=== PATIENT | female | born 1945 | race African-American/Black ===

== ENCOUNTER 2016-04-14 08:22 | Inpatient (IN) ==
[2016-04-14] MEDS ORDERED: MIDAZOLAM 2 MG/2 ML VIAL IV STA (08:51)
--- NOTE | 2016-04-14 08:54 | EKG Report ---
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
[2016-04-14] MEDS ORDERED: PIPERACILLIN/TAZOBACTAM 3,375 MG in SODIUM CHLORIDE 0.9% 100 ML IV STA (09:06)
--- NOTE | 2016-04-14 09:11 | Emergency Department Note ---
Hilary Griffith Brittany, am scribing for, and in the presence of, Tyler Huizar MD 08: 55. Gaye Griffith James D, MD, personally performed the services described in this documentation, ascribed by Rosa Richard in my presence, and it is both accurate and complete 857 . Arrival - Arrival Chief Complaint: Seizure Stated Complaint: seizure ED Nursing Triage Note: Brought in per EMS from home s/p seizure activity this am. Post-ictal at present. +vomiting prior to arrival. Unresponsive at present. Mode of Arrival: Stretcher Limitations: No Limitations Source: Patient, EMS - History of Present Illness HPI Narrative: This will be limited secondary to pt's current mental status and pt being intubated. This is a 71 y/o black female,who presents to the ED by EMS S/P seizure. Pt appears to have aspirated on vomit. She had stool incontinence as well. It is unclear if pt is compliance with her medication. She was last seen here 5 days ago for the same complaint and was out of her medication at this time. No other complaints/pain in the ED at this time. Pt has a PMHx of HTN, seizures, and GOUT. Pt denies a surgical Hx. Pt denies a family medical Hx. 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) Consistency: constant Severity: severe Date of Last Menstrual Period: PM Allergies/Adverse Reactions: Allergies Allergy/AdvReac Type Severity Reaction Status Date / Time No Known Allergies Allergy Verified 04/14/16 08:32 Home Medications: Home Medications Medication Instructions Recorded Confirmed Type Allopurinol 2 tablet PO DAILY 04/11/16 04/11/16 History Diphenoxylate HCl/Atropine 2 tablet PO Q6HR PRN 04/11/16 04/11/16 History [Diphenoxylate/Atropine 2.5-0.025 mg Tab] Famotidine 20 mg PO BID 04/11/16 04/11/16 History Hum Insulin NPH/Reg Insulin Hm 5 units SUBCUT AC SUPPER 04/11/16 04/11/16 History [NovoLIN 70/30] Hum Insulin NPH/Reg Insulin Hm 12 units SUBCUT QAM 04/11/16 04/11/16 History [NovoLIN 70/30] Ondansetron Odt Tab [Zofran Odt] 4 mg PO Q6HR PRN 04/11/16 04/11/16 History Pravastatin [Pravachol] 20 mg PO BEDTIME 04/11/16 04/11/16 History Rivaroxaban [Xarelto] 20 mg PO DAILY 04/11/16 04/11/16 History Sertraline HCl 25 mg PO DAILY 04/11/16 04/11/16 History hydrALAZINE TAB [Apresoline Tab] 25 mg PO DAILY 04/11/16 04/11/16 History levETIRAcetam TAB [Keppra Tab] 1,000 mg PO BID #120 tablet 04/11/16 Rx Review of System - Review of System 12 point system: reviewed and no additional remarkable complaints except as stated - Review of System Neurological: Present: other (Seizure activity) Medical,Surgical,& Family Hx - Medical History Cardio: History of: Hypertension Psychological: History of: Depression Neurology: History of: Seizures Endocrine: History of: Diabetes Mellitus (IDDM) Rheumatology: History of;: Gout - Surgical History Orthopedic Surgeries: Patient denies;: Total Knee Replacement - Social History Smoking Status: Unknown if ever smoked Frequency of Alcohol Use: Unknown Type of Drug Use: Unknown Exam Vital Signs: Vital Signs Temperature 97.6 F 04/14/16 13:14 Pulse Rate 87 04/14/16 13:14 Respiratory Rate 15 04/14/16 15:00 Blood Pressure 170/71 04/14/16 13:14 O2 Sat by Pulse Oximetry 100 04/14/16 08:22 GENERAL: This is a well-nourished well-developed acutely ill-appearing black female. VITAL SIGNS: Reviewed HEENT: Head is atraumatic and normocephalic. Pupils are equal round react to light. Gaze preference to the right. Oropharynx is benign with moist mucous membranes. NECK: Neck is soft and supple without tenderness. There are no masses. There is no lymphadenopathy. LUNGS: Lungs are clear to auscultation. Chest rises symmetrically. There is no chest wall tenderness. CV: Heart is regular rate and rhythm without murmurs rubs or gallops. ABDOMEN: Abdomen is soft, nontender to palpation. There are no abdominal abnormal masses palpated. There is no organomegaly. Bowel sounds are present and active. SKIN: Skin is warm and dry. No rash. EXTREMITIES: Patient has full range of motion without tenderness. There is no pedal edema. NEUROLOGIC: GCS 4. Patient is nonverbal. No purposeful movements. Course - Consultations Consultation #1: Discussed with hospitalist. Patient will be admitted to their service. Time: 09:31 Procedures - EJ/Peripheral Line Neck L Consent Obtained: verbal consent Time Out Performed: Yes Skin Cleansed in Sterile Fashion: Yes Size: 18 IV Secured and Dressing Applied: Yes Patient Tolerated Procedure: well - Intubation Time out performed: Yes sedative: Etomidate Mg Given: 20 paralytic: Vecuronium Mg Given: 10 Laryngoscope: fiber optic video scope ET Tube Size: 8 ET Tube Uncuffed: No Tube Secured Depth (cm): 22 Tube Secured Location: lips Tube Placement Confirmation: visualized tube passing through cords, equal breath sounds bilaterally, no breath sounds over epigastrium, confirmation detector color change Patient Tolerated Procedure: well Intubation Complications: none Results - Labs CBC & BMP: 04/14/16 09:48 04/14/16 09:48 Lab Results: I have reviewed the patients labs Labs: Laboratory Tests 04/14/16 04/14/16 04/14/16 09:39 09:48 09:48 WBC 33.3 H Hgb 15.0 Hct 46.0 Plt Count 262 ABG pH 7.568 H ABG pCO2 28.0 L ABG pO2 296.8 H ABG HCO3 25.0 ABG Total CO2 25.8 ABG O2 Saturation 99.6 ABG Base Excess 4.1 H Sodium Potassium Chloride Carbon Dioxide Anion Gap BUN Creatinine GFR Calculation BUN/Creatinine Ratio Glucose POC Glucose Calculated Osmolality Calcium Magnesium Total Bilirubin AST ALT Alkaline Phosphatase Total Protein Urine Color Yellow Ur Specific [place] 1.018 Urine Protein >=500 Urine Glucose (UA) Negative Urine Urobilinogen < 2.0 H Urine RBC 37 Urine WBC 40 Urine Opiates Screen Ur Barbiturates Screen Phenytoin Ur Phencyclidine Scrn U Amphetamine/Methamph U Benzodiazepines Scrn U Cocaine Metab Screen U Cannabinoids Screen 04/14/16 04/14/16 04/14/16 09:48 09:48 09:48 WBC Hgb Hct Plt Count ABG pH ABG pCO2 ABG pO2 ABG HCO3 ABG Total CO2 ABG O2 Saturation ABG Base Excess Sodium 143 Potassium 3.5 Chloride 103 Carbon Dioxide 26 Anion Gap 17.5 H BUN 11 Creatinine 0.80 GFR Calculation 106 BUN/Creatinine Ratio 13.00 Glucose 170 H POC Glucose Calculated Osmolality 287.0 Calcium 9.0 Magnesium 2.0 Total Bilirubin 0.70 AST 23 ALT 12 L Alkaline Phosphatase 108 Total Protein 7.7 Urine Color Ur Specific [place] Urine Protein Urine Glucose (UA) Urine Urobilinogen Urine RBC Urine WBC Urine Opiates Screen Negative Ur Barbiturates Screen Negative Phenytoin 6.6 L Ur Phencyclidine Scrn Negative U Amphetamine/Methamph Negative U Benzodiazepines Scrn Negative U Cocaine Metab Screen Negative U Cannabinoids Screen Negative 04/14/16 10:10 WBC Hgb Hct Plt Count ABG pH ABG pCO2 ABG pO2 ABG HCO3 ABG Total CO2 ABG O2 Saturation ABG Base Excess Sodium Potassium Chloride Carbon Dioxide Anion Gap BUN Creatinine GFR Calculation BUN/Creatinine Ratio Glucose POC Glucose 167 H Calculated Osmolality Calcium Magnesium Total Bilirubin AST ALT Alkaline Phosphatase Total Protein Urine Color Ur Specific [place] Urine Protein Urine Glucose (UA) Urine Urobilinogen Urine RBC Urine WBC Urine Opiates Screen Ur Barbiturates Screen Phenytoin Ur Phencyclidine Scrn U Amphetamine/Methamph U Benzodiazepines Scrn U Cocaine Metab Screen U Cannabinoids Screen - EKG EKG results: interpreted by ERMD - Impressions EKG: Normal sinus rhythm with rate of 91, left atrial enlargement, old inferior MD, normal axis. - Diagnostic Findings Procedure: Chest x-ray: image reviewed by me (Tube present in the trachea above the jessy. No infiltrates.), CT: image reviewed by me (CT head: No acute intracranial lesion or hemorrhage.) Critical Care Time Critical Care Time: Yes Total Critical Care Time: 60 Attestation: Pt was intubated, initial vent management orders begun, versed bolus and infusion, Keppra bolus also given. Disposition Clinical Impression: Seizure disorder, History of noncompliance with medical treatment, Chronic anticoagulation, Aspiration into airway Case discussed with: patient's family Disposition: Still a Patient Condition: Critical Time of Disposition: 09:10
--- NOTE | 2016-04-14 09:14 | XRay Report ---
Exam: XR chest 1V portable Date: 04/14/2016 8:51 AM Indication: Post intubation Comparison: 04/09/2016 Technical: AP portable Findings: Endotracheal tube is present at the level of the clavicle nasogastric tube traverses esophagus in the stomach. Mild prominence the cardiac silhouette. Minimal platelike atelectatic change in the right mid chest and patchy infiltrate present in the left perihilar region and left upper lobe. Tiny low volume left effusion. Lateral marginal osteophytes are present. Arthritic change of the shoulders bilaterally. Impression: 1. Interval placement of endotracheal tube and nasogastric tube 2. Left perihilar upper lobe infiltrate with right midlung zone atelectatic change 3. Tiny low volume left effusion PROCEDURE INTERPRETED AT [facility] ([facility] DEPARTMENT OF RADIOLOGY Final Report Signed by: Dr. Rip Venegas
[2016-04-14] MEDS ORDERED: MIDAZOLAM 2 MG/2 ML VIAL ONE (09:16)
[2016-04-14] MEDS ORDERED: DOCUSATE SODIUM 100 MG CAPSULE PO PRN (09:36)
[2016-04-14] MEDS ORDERED: LACTULOSE 20 GM/30 ML UDCUP PO PRN (09:36)
[2016-04-14] MEDS ORDERED: levETIRAcetam 500 MG/5 ML VIAL IV ONE (09:36)
[2016-04-14] MEDS ORDERED: ONDANSETRON 4 MG/2 ML VIAL IV PRN (09:36)
--- NOTE | 2016-04-14 09:36 | CT Report ---
CT head/brain wo con Indication: Seizure Comparison: CT brain dated April 09, 2016 Technique: Multiple axial tomographic images of the brain were obtained without the use of intravenous contrast. Findings: Midline structures are nondisplaced. There is no acute intracranial hemorrhage or evidence of hydrocephalus. Global volume loss present. Periventricular and subcortical hypoattenuation noted which is nonspecific but consistent with chronic microvascular ischemic change. Subtle encephalomalacia noted within the cerebellum consistent with old infarct. Air-fluid level noted within the left maxillary sinus. IMPRESSION: Air-fluid level within the left maxillary sinus may reflect acute sinusitis. No acute intracranial abnormality demonstrated otherwise. 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 PROCEDURE INTERPRETED AT [facility] DEPARTMENT OF RADIOLOGY Final Report Signed by: Dr Huseyin Durán
[2016-04-14 09:47] LABS: ABG Base Excess 4.1 MMOL/L (-2.5-2.5); ABG Oxygen Saturation 99.6 % (95-100); ABG PH 7.568 (7.35-7.45); ABG PO2 296.8 MM HG (80-95); ABG TCO2 25.8 MMOL/L (23-27)
[2016-04-14] MEDS ORDERED: VECURONIUM 10 MG VIAL IV ONE ×2 (09:54→11:36)
--- NOTE | 2016-04-14 10:02 | Hospitalist History & Physical ---
<Monisha Barfield - Last Filed: 04/14/16 10:02> Assessment and Plan - Time spent with patient Time spent with patient: Greater than 30 minutes (due to assessment, plan and documentation) (1) Pneumonia Status: Acute Assessment and plan: started on cleocin for treatment of likely aspiration pneumonia Current Visit: Yes (2) On mechanically assisted ventilation Status: Acute Assessment and plan: Dr. Cartagena consulted for vent mgmt Current Visit: Yes (3) Chronic anticoagulation Status: Acute Assessment and plan: xarelto for a fib Current Visit: Yes (4) Seizure disorder Status: Acute Assessment and plan: Dr. Cummings has been consulted for seizure disorder. Current Visit: Yes History of Present Illness Chief complaint: seizure History of present illness: Ms. Pritchard is a 71 year old female who was recently discharged after a hospitalization for seizures. She was sent home on keppra 500 mg PO BID and is back now with seizure this morning, requiring intubation. Her is at bedside and gives history. He states that she had been feeling well and this morning they were at home when she began to seize and foam at the mouth. EMS was called and she was intubated in the ER. Her denies any known surgical history. PMHx significant for Seizure, a fib, HTN, IDDM and Depression. She is on Xarelto for atrial fibrillation. She is sedated and intubated in the ER. Her eyes are nonreactive at this time. ET tube is in proper position. Lungs clear at this time to auscultation, but CXR does show ALISHA infiltrate. Will go ahead and start on abx for empiric treatment of possible pneumonia. I have started her on Cleocin to cover for possible aspiration. She will be admitted to ICU and Dr. Cummings with neurology consulted for seizures and Dr. Cartagena for vent management. Further plan and addendum to follow by Dr. Aranda. Home Medications Medication Instructions Recorded Confirmed Type Allopurinol 2 tablet PO DAILY 04/11/16 04/11/16 History Diphenoxylate HCl/Atropine 2 tablet PO Q6HR PRN 04/11/16 04/11/16 History [Diphenoxylate/Atropine 2.5-0.025 mg Tab] Famotidine 20 mg PO BID 04/11/16 04/11/16 History Hum Insulin NPH/Reg Insulin Hm 5 units SUBCUT AC SUPPER 04/11/16 04/11/16 History [NovoLIN 70/30] Hum Insulin NPH/Reg Insulin Hm 12 units SUBCUT QAM 04/11/16 04/11/16 History [NovoLIN 70/30] Ondansetron Odt Tab [Zofran Odt] 4 mg PO Q6HR PRN 04/11/16 04/11/16 History Pravastatin [Pravachol] 20 mg PO BEDTIME 04/11/16 04/11/16 History Rivaroxaban [Xarelto] 20 mg PO DAILY 04/11/16 04/11/16 History Sertraline HCl 25 mg PO DAILY 04/11/16 04/11/16 History hydrALAZINE TAB [Apresoline Tab] 25 mg PO DAILY 04/11/16 04/11/16 History levETIRAcetam TAB [Keppra Tab] 1,000 mg PO BID #120 tablet 04/11/16 Rx Allergies Allergy/AdvReac Type Severity Reaction Status Date / Time No Known Allergies Allergy Verified 04/14/16 08:32 Medical,Surgical,& Family Hx - Medical History Cardio: History of: Hypertension Psychological: History of: Depression Neurology: History of: Seizures Endocrine: History of: Diabetes Mellitus (IDDM) Rheumatology: History of;: Gout - Surgical History Orthopedic Surgeries: Patient denies;: Total Knee Replacement - Family History Family History: Denies;: Additional Family History ( is not sure of family history) - Social History Smoking Status: Unknown if ever smoked Frequency of Alcohol Use: Unknown Type of Drug Use: Unknown ROS unobtainable: due to endotracheal tube Exam - Constitutional Vitals: Period Temp Pulse Resp BP Sys/Stahl Pulse Ox Last 24 Hr 97.6 F 87 14-20 170/71 100 General appearance: over weight, other (intubated ) - Head Head exam: Present: normal inspection, normocephalic - Eye Eye exam: Present: EOMI. Absent: scleral icterus Pupils: Present: TOMAS, normal accommodation - ENT ENT exam: Present: normal exam, normal oropharynx - Neck Neck exam: Present: normal inspection. Absent: lymphadenopathy - Respiratory Respiratory exam: Present: clear to auscultation bilaterally, other (intubated) . Absent: accessory muscle use - Cardiovascular Cardiovascular exam: Present: regular rate and rhythm - GI/Abdominal GI/Abdominal exam: Present: normal bowel sounds, soft. Absent: tenderness - Extremities Exam Extremities exam: Present: normal inspection. Absent: edema - Back Exam Back exam: Present: normal inspection. Absent: muscle spasm - Neurological Exam Neurological exam: Present: other (sedated on vent) - Psychiatric Psychiatric exam: Present: other (sedated on vent) - Skin Skin exam: Present: normal color, warm, dry, intact Results - Diagnostic Findings Procedure: Chest x-ray: report reviewed by me (possible ALISHA infiltrate) <Kaitlin Aranda - Last Filed: 04/14/16 16:22> Assessment and Plan - Time spent with patient Time spent with patient: Greater than 30 minutes (1) Acute respiratory failure Status: Acute Assessment and plan: Patient intubated for airway safety due to intractable seizure activity. Patient with vomiting and possible aspiration pneumonia. Pulmonary on consult for vent management. Started on clindamycin for anabiotic coverage. Current Visit: Yes Qualifiers: Respiratory failure complication: unspecified whether with hypoxia or hypercapnia Qualified Code(s): J96.00 - Acute respiratory failure, unspecified whether with hypoxia or hypercapnia (2) Aspiration pneumonitis Status: Acute Assessment and plan: Continue clindamycin Current Visit: Yes (3) Seizure Status: Chronic Assessment and plan: Versed for sedation. EEG pending. Consult neurology. Keppra 500 mg IV every 12 hours. Current Visit: No (4) Medical non-compliance Status: Acute Current Visit: No (5) Diabetes mellitus Status: Chronic Assessment and plan: Sliding scale insulin with Accu-Cheks. Start Glucerna tube feeds per dietary. Current Visit: No Qualifiers: Diabetes mellitus type: type 1 (6) Aspiration into airway Status: Acute Current Visit: Yes Qualifiers: Encounter type: initial encounter Qualified Code(s): T17.908A - Unspecified foreign body in respiratory tract, part unspecified causing other injury, initial encounter History of Present Illness History of present illness: Ms. Pritchard is a 71 year old female was admitted from the emergency department with seizures and a possible aspiration pneumonitis. She was intubated in the ER. Patient seen and examined by me in the ICU. She is currently intubated. Sedation has been stopped for neurological evaluation by neurology. EEG is pending. She is minimally responsive. She appears comfortable on the ventilator. A repeat ABG is pending. Medical,Surgical,& Family Hx - Family History Additional Family History: Unobtainable due to patient's current state. Patient is intubated and sedated. - Social History Marital Status: Lives With:: Spouse Functional capacity: independent ambulation ROS unobtainable: due to endotracheal tube, due to mental status - Neurological Neurological: Present: as per HPI Exam - Constitutional Vitals: Period Temp Pulse Resp BP Sys/Stahl Pulse Ox Last 24 Hr 97.6 F 87 14-20 170/71 - Neurological Exam Neurological exam: Present: other Results - Labs CBC & BMP: 04/14/16 09:48 04/14/16 09:48 Lab Results: I have reviewed the past 24 hour labs
[2016-04-14 10:09] LABS: Basophils # 0.1 10*3/uL (0.0-0.2); Basophils % 0.2 % (0.0-0.8); Immature Granulocytes % 0.6 %; Lymphocytes # 1.7 10*3/uL (1.4-4.0); Mean Corpuscular HGB Conc 32.6 GM/DL (32-36); Mean Corpuscular Hemoglobin 28 PG (27-34); Monocytes # 2.2 10*3/uL (0.11-0.8); Monocytes % 6.5 % (1.7-12.7); Neutrophils # 29.2 10*3/uL (1.4-7.4); Neutrophils % 87.7 % (38.7-73.9); Platelet Count 262 T/CUMM (130-400); Red Blood Count 5.41 MC/CUMM (3.8-5.5); Red Cell Distribution Width 16.6 % (9.3-17.3); White Blood Count 33.3 T/CUMM (4-12)
[2016-04-14] MEDS: MIDAZOLAM 100 MG in SODIUM CHLORIDE 0.9% 80 ML IV SCH (10:12)
[2016-04-14] MEDS ORDERED: VECURONIUM 10 MG VIAL IV STA ×2 (10:13)
[2016-04-14] MEDS ORDERED: ETOMIDATE 20 MG/10 ML VIAL IV STA (10:13)
[2016-04-14 10:25] LABS: Apearance,Urine Slightly Hazy (Clear); Bilirubin,Urine Negative (Negative); Blood, Urine Moderate mg/dL (Negative); Glucose,Urine (UA) Negative (Negative); Hyaline Casts,Urine 1 /LPF (0-3); Ketones,Urine Negative (Negative); Mucus,Urine Few /LPF (Occasional); Nitrite,Urine Negative (Negative); Protein,Urine >=500 MG/DL; RBC,Urine 37 /HPF (0-4); Squamous Epithelial Cell,Urine Occasional /HPF (0-10); Urine Color Yellow (Yellow); Urine Specific Gravity 1.018 (1.001-1.035); Urine Urobilinogen < 2.0 EU/DL (0.2-1.0); WBC,Urine 40 /HPF (0-6)
[2016-04-14 10:32] LABS: Hypochromasia 1+; Lymphocytes 8 % (20-55); Platelet Estimate Normal; Segmented Neutrophils 88 % (50-85); Total Cells Counted 100
[2016-04-14 10:39] LABS: Barbiturates Screen,Urine Negative (Negative); Benzodiazepines Screen,Urine Negative (Negative); Cannabinoid Screen,Urine Negative (Negative); Opiate Screen,Urine Negative (Negative); Phencyclidine Screen,Urine Negative (Negative)
[2016-04-14 10:40] LABS: Albumin 3.3 G/DL (3.4-5.0); Bilirubin,Total 0.7 MG/DL (0.2-1.0); Potassium 3.5 MMOL/L (3.5-5.1); Total Protein 7.7 G/DL (6.4-8.3)
[2016-04-14] MEDS ORDERED: ETOMIDATE 20 MG/10 ML VIAL IV ONE (11:36)
[2016-04-14] MEDS ORDERED: PIPERACILLIN/TAZOBACTAM 3,375 MG VIAL IV ONE (11:47)
--- NOTE | 2016-04-14 15:22 | Neurology Consult Note ---
History of Present Illness History of present illness: Patient is unable to provide any history. History basically obtained from the chart. Ms. Pritchard is a 71 year old female who was recently discharged after a hospitalization for seizures. She was sent home on keppra 500 mg PO BID and is back now with seizure this morning, requiring intubation. reported that she had been feeling well and this morning they were at home when she began to seize and foam at the mouth. EMS was called and she was intubated in the ER. Her denies any known surgical history. PMHx significant for Seizure, a fib, HTN, IDDM and Depression. She is on Xarelto for atrial fibrillation. She is sedated and intubated in the ER. It was thought that she probably had aspirated and she is on antibiotics now. CT head showed sinusitis Home Medications Medication Instructions Recorded Confirmed Type Allopurinol 2 tablet PO DAILY 04/11/16 04/11/16 History Diphenoxylate HCl/Atropine 2 tablet PO Q6HR PRN 04/11/16 04/11/16 History [Diphenoxylate/Atropine 2.5-0.025 mg Tab] Famotidine 20 mg PO BID 04/11/16 04/11/16 History Hum Insulin NPH/Reg Insulin Hm 5 units SUBCUT AC SUPPER 04/11/16 04/11/16 History [NovoLIN 70/30] Hum Insulin NPH/Reg Insulin Hm 12 units SUBCUT QAM 04/11/16 04/11/16 History [NovoLIN 70/30] Ondansetron Odt Tab [Zofran Odt] 4 mg PO Q6HR PRN 04/11/16 04/11/16 History Pravastatin [Pravachol] 20 mg PO BEDTIME 04/11/16 04/11/16 History Rivaroxaban [Xarelto] 20 mg PO DAILY 04/11/16 04/11/16 History Sertraline HCl 25 mg PO DAILY 04/11/16 04/11/16 History hydrALAZINE TAB [Apresoline Tab] 25 mg PO DAILY 04/11/16 04/11/16 History levETIRAcetam TAB [Keppra Tab] 1,000 mg PO BID #120 tablet 04/11/16 Rx Allergies Allergy/AdvReac Type Severity Reaction Status Date / Time No Known Allergies Allergy Verified 02/28/17 08:32 ROS unobtainable: due to endotracheal tube, due to mental status Medical,Surgical,& Family Hx - Medical History Cardio: History of: Hypertension Psychological: History of: Depression Neurology: History of: Seizures Endocrine: History of: Diabetes Mellitus (IDDM) Rheumatology: History of;: Gout - Surgical History Orthopedic Surgeries: Patient denies;: Total Knee Replacement - Family History Family History: Denies;: Additional Family History ( is not sure of family history) - Social History Smoking Status: Unknown if ever smoked Frequency of Alcohol Use: Unknown Type of Drug Use: Unknown Exam - Constitutional Vitals: Period Temp Pulse Resp BP Sys/Stahl Pulse Ox Last 24 Hr 97.6 F 87 14-20 170/71 Exam: GENERAL: Patient is in no acute distress. NECK: Neck is supple. There is no JVD. No carotid bruits present. No thyroid masses. CVS: First and second heart sounds are normal. There is no S3 present. Regular rate and rhythm. RESPIRATORY: Lungs are clear to auscultation without any rales or rhonchi. On vent ABDOMEN: Soft and non-tender. Bowel sounds are present. There is no hepatosplenomegaly. EXT: There is no palpable edema. Peripheral pulses are present. Skin: No rashes Central Nervous system: General: Unresponsive Speech: Unresponsive Comprehension: Cannot be assessed Facial expressions: Normal Cranial Nerves: Pupils are sluggish but reactive to light. Doll's head I moves are positive. No facial asymmetry is seen. Motor: Bulk and Tone is normal. Strength cannot be assessed Sensory: Cannot be assessed Reflexes: 1+ and symmetrical Cerebellar function: Cannot be assessed Toes: Equivocal Gait: Cannot be assessed Results - Labs CBC & BMP: 04/14/16 09:48 04/14/16 09:48 Assessment and Plan (1) Hypoxic encephalopathy Status: Acute Assessment and plan: Continue current supportive management Current Visit: Yes (2) Seizure disorder Status: Acute Assessment and plan: We will put her on Keppra 500 mg IV every 12\ EEG Current Visit: Yes
[2016-04-14] MEDS: CLINDAMYCIN INJ 900 MG in PREMIX 1 EACH IV SCH ×2 (15:59→18:30)
[2016-04-14 16:09] LABS: ABG HCO3 27.4 MMOL/L (20-26); ABG Oxygen Saturation 98.9 % (95-100); ABG PCO2 33.7 MM HG (35-48); ABG PH 7.528 (7.35-7.45); ABG PO2 127.1 MM HG (80-95); ABG TCO2 28.4 MMOL/L (23-27)
--- NOTE | 2016-04-14 17:22 | Pulmonology Consult Note ---
Assessment and Plan (1) Seizure Status: Chronic Assessment and plan: Patient had a recurrent seizure and was intubated. Now all medications for that being followed by neurology. Unclear whether patient has any hypoxic brain injury. Brain CT was okay except for sinusitis. Current Visit: No (2) Chronic anticoagulation Status: Acute Assessment and plan: She is on Xarelto for atrial fibrillation. Current Visit: Yes (3) Aspiration into airway Status: Acute Assessment and plan: Likely will develop aspiration pneumonia. I have added cefepime both for that and for sinusitis. Already on Cleocin Current Visit: Yes Qualifiers: Encounter type: initial encounter Qualified Code(s): T17.908A - Unspecified foreign body in respiratory tract, part unspecified causing other injury, initial encounter (4) Acute respiratory failure Status: Acute Assessment and plan: ABGs look good on current settings. We will not try to wean her until neurologic status is clarified. Current Visit: Yes Qualifiers: Respiratory failure complication: unspecified whether with hypoxia or hypercapnia Qualified Code(s): J96.00 - Acute respiratory failure, unspecified whether with hypoxia or hypercapnia History of Present Illness Chief complaint: Grand mal seizure, aspiration History of present illness: Ms. Pritchard is a 71 year old female with a history of seizure disease. She had been here a week or so back having seizures and was sent home taking Keppra. She developed a seizure with foaming at the mouth and grand mal activity and was brought in the emergency room. She was intubated there. She is presently on a Versed infusion and is not reactive. She does have reactive pupils. She had a CT of the brain that showed sinusitis. Home Medications Medication Instructions Recorded Confirmed Type Allopurinol 2 tablet PO DAILY 04/11/16 04/11/16 History Diphenoxylate HCl/Atropine 2 tablet PO Q6HR PRN 04/11/16 04/11/16 History [Diphenoxylate/Atropine 2.5-0.025 mg Tab] Famotidine 20 mg PO BID 04/11/16 04/11/16 History Hum Insulin NPH/Reg Insulin Hm 5 units SUBCUT AC SUPPER 04/11/16 04/11/16 History [NovoLIN 70/30] Hum Insulin NPH/Reg Insulin Hm 12 units SUBCUT QAM 04/11/16 04/11/16 History [NovoLIN 70/30] Ondansetron Odt Tab [Zofran Odt] 4 mg PO Q6HR PRN 04/11/16 04/11/16 History Pravastatin [Pravachol] 20 mg PO BEDTIME 04/11/16 04/11/16 History Rivaroxaban [Xarelto] 20 mg PO DAILY 04/11/16 04/11/16 History Sertraline HCl 25 mg PO DAILY 04/11/16 04/11/16 History hydrALAZINE TAB [Apresoline Tab] 25 mg PO DAILY 04/11/16 04/11/16 History levETIRAcetam TAB [Keppra Tab] 1,000 mg PO BID #120 tablet 04/11/16 Rx Allergies Allergy/AdvReac Type Severity Reaction Status Date / Time No Known Allergies Allergy Verified 04/14/16 08:32 ROS unobtainable: due to endotracheal tube Exam (Pulmonay) H&P - Constitutional Vitals: Period Temp Pulse Resp BP Sys/Stahl Pulse Ox Last 24 Hr 97.6 F-99.5 F 87-124 14-28 140-174/58-102 98-100 Exam: Patient not responsive. Pupils react to light. Vital signs normal, except pulse 120. Orotracheal tube is in place. Neck is supple. Chest shows a few rhonchi on the bases. Heart rapid rate normal rhythm no murmurs. Abdomen soft no masses bowel sounds present. Extremities no clubbing cyanosis or edema. Medical,Surgical,& Family Hx - Medical History Cardio: History of: Hypertension Psychological: History of: Depression Neurology: History of: Seizures Endocrine: History of: Diabetes Mellitus (IDDM) Rheumatology: History of;: Gout - Surgical History Orthopedic Surgeries: Patient denies;: Total Knee Replacement - Family History Family History: Denies;: Additional Family History ( is not sure of family history) - Social History Smoking Status: Unknown if ever smoked Frequency of Alcohol Use: Unknown Type of Drug Use: Unknown Results - Labs CBC & BMP: 04/14/16 09:48 04/14/16 09:48 Lab Results: I have reviewed the past 24 hour labs - Diagnostic Findings Procedure: Chest x-ray: image reviewed by me (Patchy bibasilar infiltrates. ET tube in good position.)
[2016-04-14] MEDS ORDERED: LABETALOL 20 MG/4 ML SYRINGE IV ONE (19:41)
[2016-04-14] MEDS: FAMOTIDINE 20 MG TABLET PO SCH (20:40)
[2016-04-14] MEDS: CEFEPIME 1,000 MG in SODIUM CHLORIDE 0.9% 100 ML IV SCH (20:40)
[2016-04-14] MEDS: METOPROLOL TARTRATE 25 MG TABLET NG SCH (20:40)
[2016-04-14] MEDS ORDERED: DEXTROSE 50% 25 GM/50 ML VIAL IV PRN (23:05)
[2016-04-14] MEDS ORDERED: GLUCAGON 1 MG VIAL IM PRN (23:05)
[2016-04-14] MEDS: INSULIN REGULAR 100 UNIT/ML SUBCUT SCH (23:31)
[2016-04-15] MEDS: CLINDAMYCIN INJ 900 MG in PREMIX 1 EACH IV SCH ×3 (03:01→19:12)
[2016-04-15 05:00] LABS: Basophils % 0.1 % (0.0-0.8); Eosinophils % 0.1 % (0.00-10.9); Hematocrit 43.5 VOL% (35.7-47.0); Hemoglobin 13.7 GM/DL (12.0-16.0); Immature Granulocytes % 0.6 %; Immature Granulocytes Absolute 0.12 #; Lymphocytes # 3.4 10*3/uL (1.4-4.0); Lymphocytes % 16.1 % (21.3-54.2); Mean Corpuscular HGB Conc 31.5 GM/DL (32-36); Mean Corpuscular Hemoglobin 27 PG (27-34); Mean Corpuscular Volume 86.7 FL (87-102); Mean Platelet Volume 11.4 FL (9.6-12.0); Monocytes # 1.5 10*3/uL (0.11-0.8); Neutrophils # 16.2 10*3/uL (1.4-7.4); Neutrophils % 76.1 % (38.7-73.9); Platelet Count 250 T/CUMM (130-400); Red Blood Count 5.02 MC/CUMM (3.8-5.5); Red Cell Distribution Width 16.6 % (9.3-17.3); White Blood Count 21.3 T/CUMM (4-12)
[2016-04-15 05:30] LABS: Platelet Estimate Normal
[2016-04-15] MEDS: INSULIN REGULAR 100 UNIT/ML SUBCUT SCH ×3 (05:42→19:19)
[2016-04-15] MEDS: CEFEPIME 1,000 MG in SODIUM CHLORIDE 0.9% 100 ML IV SCH ×2 (05:42→19:09)
[2016-04-15 06:11] LABS: Albumin 2.6 G/DL (3.4-5.0); Bilirubin,Total 0.5 MG/DL (0.2-1.0); Calcium 8.5 MG/DL (8.5-10.1); Osmolality,Calculated 301.7 MOS/KG (273-304); Potassium 3.6 MMOL/L (3.5-5.1); Total Protein 6.6 G/DL (6.4-8.3)
--- NOTE | 2016-04-15 06:39 | XRay Report ---
Exam: XR chest 1V portable Date: 04/15/2016 4:00 AM Indication: Shortness of breath Comparison: 04/14/2016 Technical: AP portable Findings: External cardiac leads are present. Endotracheal tube and nasogastric tube are present unchanged. Mild cardiomegaly. No obvious pneumothorax. Minimal interstitial thickening in the left perihilar region and tiny left base pleural effusion suspected Impression: 1. Stable appearance of life support tubing 2. Patchy interstitial infiltrate left chest and left base pleural effusion PROCEDURE INTERPRETED AT [facility] DEPARTMENT OF RADIOLOGY Final Report Signed by: Dr. Rip Venegas
--- NOTE | 2016-04-15 07:25 | Pulmonology Progress Note ---
Pulmonary - PN: Subj Interval history: This 71-year-old lady had seizures and aspiration pneumonia and is on the ventilator. She has a left lower lobe pneumonia. She is on broad-spectrum antibiotics. Neurology is seeing her. Her mental status/seizures will decide when we can get her extubated. Exam (Progress Note) - Constitutional Vitals: Period Temp Pulse Resp BP Sys/Stahl Pulse Ox Last 24 Hr 97.6 F-99.5 F 87-124 8-28 120-174/58-102 97-100 Exam: Patient is sedated. Vital signs normal. Pupils react to light. Orotracheal tube in place. Neck supple no bruits. Chest shows some rhonchi on the left lower lobe. Heart normal rate rhythm no murmurs. Abdomen soft no masses. Bowel sounds present. Extremities no clubbing cyanosis or edema. Results - Labs CBC & BMP: 04/15/16 04:25 04/15/16 04:25 Lab Results: I have reviewed the past 24 hour labs - Diagnostic Findings Procedure: Chest x-ray: image reviewed by me (Persistent left lower lobe infiltrate. ET tube in good position.) Assessment and Plan (1) Seizure Status: Chronic Assessment and plan: Patient had a recurrent seizure and was intubated. Now all medications for that being followed by neurology. Unclear whether patient has any hypoxic brain injury. Brain CT was okay except for sinusitis. 04/15/2016 continuing seizure medications. Hold sedation and check mental status when neurology is ready. Current Visit: No (2) Chronic anticoagulation Status: Acute Assessment and plan: She is on Xarelto for atrial fibrillation. Current Visit: Yes (3) Aspiration into airway Status: Acute Assessment and plan: Likely will develop aspiration pneumonia. I have added cefepime both for that and for sinusitis. Already on Cleocin 04/15/2016 patient on Cleocin and cefepime for sinusitis and left lower lobe pneumonia which is likely aspiration. Current Visit: Yes Qualifiers: Encounter type: initial encounter Qualified Code(s): T17.908A - Unspecified foreign body in respiratory tract, part unspecified causing other injury, initial encounter (4) Acute respiratory failure Status: Acute Assessment and plan: ABGs look good on current settings. We will not try to wean her until neurologic status is clarified. 04/15/2016 ABGs are pending. Hold weaning until mental status is ready. Current Visit: Yes Qualifiers: Respiratory failure complication: unspecified whether with hypoxia or hypercapnia Qualified Code(s): J96.00 - Acute respiratory failure, unspecified whether with hypoxia or hypercapnia
[2016-04-15] MEDS: FAMOTIDINE 20 MG TABLET PO SCH ×2 (09:46→20:30)
[2016-04-15] MEDS: METOPROLOL TARTRATE 25 MG TABLET NG SCH ×2 (09:46→20:30)
[2016-04-15] MEDS: SERTRALINE 25 MG TABLET PO SCH (09:46)
[2016-04-15] MEDS: hydrALAZINE 25 MG TABLET PO SCH (09:47)
[2016-04-15] MEDS: RIVAROXABAN 20 MG TABLET PO SCH (09:47)
[2016-04-15] MEDS: ALLOPURINOL 100 MG TABLET PO SCH (09:47)
--- NOTE | 2016-04-15 16:54 | Hospitalist Progress Note ---
Assessment and Plan (1) Acute respiratory failure Status: Acute Assessment and plan: Patient intubated for airway safety due to intractable seizure activity. Patient with vomiting and possible aspiration pneumonia. Pulmonary on consult for vent management. Started on clindamycin for anabiotic coverage as well as cefepime Current Visit: Yes Qualifiers: Respiratory failure complication: unspecified whether with hypoxia or hypercapnia Qualified Code(s): J96.00 - Acute respiratory failure, unspecified whether with hypoxia or hypercapnia (2) Aspiration pneumonitis Status: Acute Assessment and plan: Continue clindamycin Current Visit: Yes (3) Seizure Status: Chronic Assessment and plan: Versed for sedation. EEG pending. Consult neurology. Keppra 500 mg IV every 12 hours. Current Visit: No (4) Medical non-compliance Status: Acute Current Visit: No (5) Diabetes mellitus Status: Chronic Assessment and plan: Sliding scale insulin with Accu-Cheks. Start Glucerna tube feeds per dietary. Current Visit: No Qualifiers: Diabetes mellitus type: type 1 (6) Aspiration into airway Status: Acute Current Visit: Yes Qualifiers: Encounter type: initial encounter Qualified Code(s): T17.908A - Unspecified foreign body in respiratory tract, part unspecified causing other injury, initial encounter Hospitalist: Subjective Interval history: Patient remains unresponsive- despite versed off since yesterday. EEG pending. Remains intubated. WBC up to 21K. Tolerating TF Exam - Constitutional Vitals: Period Temp Pulse Resp BP Sys/Stahl Pulse Ox Last 24 Hr 97.8 F-100.2 F 77-123 8-26 120-169/54-91 97-100 General appearance: no acute distress - Respiratory Respiratory exam: Present: clear to auscultation bilaterally - Cardiovascular Cardiovascular exam: Present: regular rate and rhythm - GI/Abdominal GI/Abdominal exam: Present: normal bowel sounds, soft - Neurological Exam Neurological exam: Present: other (unresponsive) - Psychiatric Psychiatric exam: Present: normal affect, normal mood - Skin Skin exam: Present: normal color, warm Results - Labs CBC & BMP: 04/15/16 04:25 04/15/16 04:25 Lab Results: I have reviewed the past 24 hour labs
--- NOTE | 2016-04-15 17:04 | Neurology Progress Note ---
Neurology - PN : Subjective Interval history: Ms. Fried seems to be doing about the same. She is unresponsive. No new problems reported. No more seizures reported. Exam (Progress Note) - Constitutional Vitals: Period Temp Pulse Resp BP Sys/Stahl Pulse Ox Last 24 Hr 97.8 F-100.2 F 77-123 8-26 120-169/54-91 97-100 Exam: GENERAL: Patient is in no acute distress. NECK: Neck is supple. There is no JVD. No carotid bruits present. No thyroid masses. CVS: First and second heart sounds are normal. There is no S3 present. Regular rate and rhythm. RESPIRATORY: Lungs are clear to auscultation without any rales or rhonchi. On vent ABDOMEN: Soft and non-tender. Bowel sounds are present. There is no hepatosplenomegaly. EXT: There is no palpable edema. Peripheral pulses are present. Skin: No rashes Central Nervous system: General: Unresponsive Speech: Unresponsive Comprehension: Cannot be assessed Facial expressions: Normal Cranial Nerves: Pupils are sluggish but reactive to light. Doll's head I moves are positive. No facial asymmetry is seen. Motor: Bulk and Tone is normal. Strength cannot be assessed Sensory: Cannot be assessed Reflexes: 1+ and symmetrical Cerebellar function: Cannot be assessed Toes: Equivocal Gait: Cannot be assessed Results - Labs CBC & BMP: 04/15/16 04:25 04/15/16 04:25 Assessment and Plan (1) Hypoxic encephalopathy Status: Acute Assessment and plan: Continue current supportive management Current Visit: Yes (2) Seizure disorder Status: Acute Assessment and plan: Continue Keppra 500 mg IV every 12 Current Visit: Yes
--- NOTE | 2016-04-15 18:53 | Electroencephalogram ---
DATE OF STUDY: 04/15/2016 HISTORY: A 71-year-old patient with change in mental status. INTRODUCTION: A digital EEG was performed using the standard 10/20 system of electrode placement wi th one channel of EKG monitoring. Photic stimulation is performed. DESCRIPTION OF RECORD: The background is very disorganized, consists of 4 to 5 hertz moderate ampli tude bilaterally symmetrical rhythm. This record is remarkable for intermittent generalized triphasi c waves. There are no focal, sharp-wave, spike, or wave activity seen. Heart rate 80 beats per minute. IMPRESSION: 1. ABNORMAL EEG DUE TO MINIMAL GENERALIZED SLOWING. 2. TRIPHASIC WAVES. CLINICAL CORRELATION: This record is supportive of moderate to severe encephalopathy, which could b e secondary to postictal state, posthypoxic state, metabolic disorder, diffuse [employer] insult, or increa sed intracranial pressure. No epileptiform/seizure activity seen. Clinical correlation is suggested.
[2016-04-16] MEDS: INSULIN REGULAR 100 UNIT/ML SUBCUT SCH ×4 (00:38→18:38)
[2016-04-16] MEDS: CLINDAMYCIN INJ 900 MG in PREMIX 1 EACH IV SCH ×3 (02:30→18:37)
[2016-04-16 03:27] LABS: ABG Base Excess 5.2 MMOL/L (-2.5-2.5); ABG HCO3 29.3 MMOL/L (20-26); ABG Oxygen Saturation 98.7 % (95-100); ABG PH 7.472 (7.35-7.45); ABG PO2 142.1 MM HG (80-95); ABG TCO2 30.6 MMOL/L (23-27); Pt O2 Delivery Device Ventilator
[2016-04-16] MEDS: CEFEPIME 1,000 MG in SODIUM CHLORIDE 0.9% 100 ML IV SCH ×2 (05:58→18:33)
[2016-04-16 06:47] LABS: Basophils # 0.1 10*3/uL (0.0-0.2); Basophils % 0.2 % (0.0-0.8); Eosinophils # 0.2 10*3/uL (0.0-0.87); Eosinophils % 0.9 % (0.00-10.9); Hematocrit 40.3 VOL% (35.7-47.0); Hemoglobin 12.9 GM/DL (12.0-16.0); Immature Granulocytes Absolute 0.21 #; Lymphocytes # 3.6 10*3/uL (1.4-4.0); Lymphocytes % 16.4 % (21.3-54.2); Mean Corpuscular Hemoglobin 28 PG (27-34); Mean Corpuscular Volume 87.2 FL (87-102); Mean Platelet Volume 11.8 FL (9.6-12.0); Monocytes # 1.7 10*3/uL (0.11-0.8); Monocytes % 7.6 % (1.7-12.7); Neutrophils # 16.2 10*3/uL (1.4-7.4); Neutrophils % 73.9 % (38.7-73.9); Platelet Count 254 T/CUMM (130-400); Red Blood Count 4.62 MC/CUMM (3.8-5.5); Red Cell Distribution Width 16.4 % (9.3-17.3); White Blood Count 21.8 T/CUMM (4-12)
--- NOTE | 2016-04-16 06:52 | XRay Report ---
Exam: XR chest 1V portable Date: 04/16/2016 4:00 AM Indication: Follow-up ventilator respiratory failure Comparison: 04/15/2016 Technical: AP portable Findings: Endotracheal tube and nasogastric tube are present. Platelike atelectatic change present in the left base. Patchy infiltrates are present. External cardiac leads are present. Arthritic change present over the shoulders left greater than right. The heart is normal in size. Impression: 1. Stable appearance of life support tubing 2. Left basilar platelike atelectatic change 3. Degenerative spondylosis change thoracic spine with arthritic change of the shoulders PROCEDURE INTERPRETED AT [facility] DEPARTMENT OF RADIOLOGY Final Report Signed by: Dr. Rip Venegas
--- NOTE | 2016-04-16 06:59 | Pulmonology Progress Note ---
Pulmonary - PN: Subj Interval history: This 71-year-old lady had seizures and aspiration pneumonia and is on the ventilator. She has a left lower lobe pneumonia. She is on broad-spectrum antibiotics. Neurology is seeing her. Her mental status/seizures will decide when we can get her extubated. 04/16/16 patient still not very responsive. ABGs and chest x-ray look good. We will start CPAP but not ready to extubate. Exam (Progress Note) - Constitutional Vitals: Period Temp Pulse Resp BP Sys/Stahl Pulse Ox Last 24 Hr 97.6 F-100.2 F 77-101 6-23 133-183/54-101 100-100 Exam: Patient is sedated. Vital signs normal. Pupils react to light. Orotracheal tube in place. Neck supple no bruits. Chest shows some rhonchi on the left lower lobe. Heart normal rate rhythm no murmurs. Abdomen soft no masses. Bowel sounds present. Extremities no clubbing cyanosis or edema. Little change from yesterday. Results - Labs CBC & BMP: 04/16/16 05:23 04/15/16 04:25 Lab Results: I have reviewed the past 24 hour labs - Diagnostic Findings Procedure: Chest x-ray: image reviewed by me (Minimal left basilar infiltrate. ET tube good position) Assessment and Plan (1) Seizure Status: Chronic Assessment and plan: Patient had a recurrent seizure and was intubated. Now all medications for that being followed by neurology. Unclear whether patient has any hypoxic brain injury. Brain CT was okay except for sinusitis. 04/15/2016 continuing seizure medications. Hold sedation and check mental status when neurology is ready. 04/16/16 no further seizures. Decreased level of consciousness. EEG showed evidence of encephalopathy. Current Visit: No (2) Chronic anticoagulation Status: Acute Assessment and plan: She is on Xarelto for atrial fibrillation. Current Visit: Yes (3) Aspiration into airway Status: Acute Assessment and plan: Likely will develop aspiration pneumonia. I have added cefepime both for that and for sinusitis. Already on Cleocin 04/15/2016 patient on Cleocin and cefepime for sinusitis and left lower lobe pneumonia which is likely aspiration. 04/16/16 continuing empiric antibiotics. Chest x-ray does not look bad. Only minimal left basilar infiltrate. Current Visit: Yes Qualifiers: Encounter type: initial encounter Qualified Code(s): T17.908A - Unspecified foreign body in respiratory tract, part unspecified causing other injury, initial encounter (4) Acute respiratory failure Status: Acute Assessment and plan: ABGs look good on current settings. We will not try to wean her until neurologic status is clarified. 04/15/2016 ABGs are pending. Hold weaning until mental status is ready. 04/16/16 ABGs look good. We can start weaning trials but not ready to extubate. Current Visit: Yes Qualifiers: Respiratory failure complication: unspecified whether with hypoxia or hypercapnia Qualified Code(s): J96.00 - Acute respiratory failure, unspecified whether with hypoxia or hypercapnia
[2016-04-16 07:09] LABS: Calcium 8.8 MG/DL (8.5-10.1); Magnesium 2.4 MG/DL (1.8-2.4); Osmolality,Calculated 302.6 MOS/KG (273-304); Potassium 3.8 MMOL/L (3.5-5.1)
[2016-04-16 07:13] LABS: Hypochromasia 1+; Lymphocytes 19 % (20-55); Ovalocytes Slight; Platelet Estimate Adequate; Segmented Neutrophils 74 % (50-85); Total Cells Counted 100
--- NOTE | 2016-04-16 08:51 | Hospitalist Progress Note ---
Assessment and Plan (1) Acute respiratory failure Status: Acute Assessment and plan: Patient intubated for airway safety due to intractable seizure activity. Patient with vomiting and possible aspiration pneumonia. Pulmonary on consult for vent management. Started on clindamycin for anabiotic coverage as well as cefepime Current Visit: Yes Qualifiers: Respiratory failure complication: unspecified whether with hypoxia or hypercapnia Qualified Code(s): J96.00 - Acute respiratory failure, unspecified whether with hypoxia or hypercapnia (2) Aspiration pneumonitis Status: Acute Assessment and plan: Continue clindamycin and cefepime Current Visit: Yes (3) Seizure Status: Chronic Assessment and plan: Keppra 500 mg IV every 12 hours. EEG with generalized slowing. No evidence of ongoing seizure activity Current Visit: No (4) Medical non-compliance Status: Acute Current Visit: No (5) Diabetes mellitus Status: Chronic Assessment and plan: Sliding scale insulin with Accu-Cheks. Start Glucerna tube feeds per dietary. Current Visit: No Qualifiers: Diabetes mellitus type: type 1 (6) Aspiration into airway Status: Acute Current Visit: Yes Qualifiers: Encounter type: initial encounter Qualified Code(s): T17.908A - Unspecified foreign body in respiratory tract, part unspecified causing other injury, initial encounter Hospitalist: Subjective Interval history: Patient remains intubated and unresponsive despite no medical sedation. Her EEG shows diffuse slowing consistent with a metabolic encephalopathy versus anoxic brain injury. She does have some spontaneous movements of her left foot. She appears to try to open her eyes but does not follow any commands. White blood cell count remains elevated at 21,000. Exam - Constitutional Vitals: Period Temp Pulse Resp BP Sys/Stahl Pulse Ox Last 24 Hr 97.6 F-99.0 F 77-101 6-23 126-183/54-101 100-100 General appearance: no acute distress, other (unresponsive) - ENT ENT exam: Present: other (ET tube and NG tube in place) - Respiratory Respiratory exam: Present: rhonchi, other (coarse breath sounds bilaterally) - Cardiovascular Cardiovascular exam: Present: regular rate and rhythm - GI/Abdominal GI/Abdominal exam: Present: normal bowel sounds, soft. Absent: tenderness, rebound - Extremities Exam Extremities exam: Present: edema (right hand swelling.) - Neurological Exam Neurological exam: Present: altered, other (unresponsive without sedation) Results - Labs CBC & BMP: 04/16/16 05:23 04/16/16 05:23 Lab Results: I have reviewed the past 24 hour labs - Diagnostic Findings Procedure: Chest x-ray: report reviewed by me, image reviewed by me
[2016-04-16] MEDS: FAMOTIDINE 20 MG TABLET PO SCH ×2 (09:45→21:15)
[2016-04-16] MEDS: SERTRALINE 25 MG TABLET PO SCH (09:45)
[2016-04-16] MEDS: hydrALAZINE 25 MG TABLET PO SCH (09:45)
[2016-04-16] MEDS: RIVAROXABAN 20 MG TABLET PO SCH (09:46)
[2016-04-16] MEDS: ALLOPURINOL 100 MG TABLET PO SCH (09:46)
[2016-04-16] MEDS: METOPROLOL TARTRATE 25 MG TABLET NG SCH ×2 (09:46→21:15)
--- NOTE | 2016-04-16 16:09 | Neurology Progress Note ---
Neurology - PN : Subjective Interval history: Ms. Pritchard continue remain same. No seizures reported. She is totally unresponsive. She is not following any commands or not waking up. She is grimacing and withdrawing some on painful stimuli. Exam (Progress Note) - Constitutional Vitals: Period Temp Pulse Resp BP Sys/Stahl Pulse Ox Last 24 Hr 97.5 F-98.6 F 78-101 6-23 126-183/54-101 100-100 Exam: GENERAL: Patient is in no acute distress. NECK: Neck is supple. There is no JVD. No carotid bruits present. No thyroid masses. CVS: First and second heart sounds are normal. There is no S3 present. Regular rate and rhythm. RESPIRATORY: Lungs are clear to auscultation without any rales or rhonchi. On vent ABDOMEN: Soft and non-tender. Bowel sounds are present. There is no hepatosplenomegaly. EXT: There is no palpable edema. Peripheral pulses are present. Skin: No rashes Central Nervous system: General: Unresponsive Speech: Unresponsive Comprehension: Cannot be assessed Facial expressions: Normal Cranial Nerves: Pupils are sluggish but reactive to light. Doll's head I moves are positive. No facial asymmetry is seen. Motor: Bulk and Tone is normal. Strength cannot be assessed Sensory: Cannot be assessed Reflexes: 1+ and symmetrical Cerebellar function: Cannot be assessed Toes: Equivocal Gait: Cannot be assessed Results - Labs CBC & BMP: 04/16/16 05:23 04/16/16 05:23 Assessment and Plan (1) Hypoxic encephalopathy Status: Acute Assessment and plan: Continue current supportive management Prognosis is guarded Current Visit: Yes (2) Seizure disorder Status: Acute Assessment and plan: Continue Keppra 500 mg IV every 12 Current Visit: Yes
[2016-04-16] MEDS: MIDAZOLAM 100 MG in SODIUM CHLORIDE 0.9% 80 ML IV SCH ×2 (18:44→18:45)
[2016-04-17] MEDS: INSULIN REGULAR 100 UNIT/ML SUBCUT SCH ×5 (00:06→23:51)
[2016-04-17] MEDS: CLINDAMYCIN INJ 900 MG in PREMIX 1 EACH IV SCH ×3 (03:16→18:01)
[2016-04-17] MEDS: CEFEPIME 1,000 MG in SODIUM CHLORIDE 0.9% 100 ML IV SCH ×2 (05:13→17:57)
[2016-04-17 05:24] LABS: Calcium 8.5 MG/DL (8.5-10.1); Magnesium 2.3 MG/DL (1.8-2.4); Osmolality,Calculated 301.7 MOS/KG (273-304); Phosphorous 1.7 MG/DL (2.5-4.9); Potassium 4.2 MMOL/L (3.5-5.1)
[2016-04-17 06:55] LABS: Pt O2 Delivery Device Ventilator
[2016-04-17 06:56] LABS: ABG Oxygen Saturation 99.6 % (95-100); ABG PCO2 37.7 MM HG (35-48); ABG PH 7.473 (7.35-7.45); ABG TCO2 24.3 MMOL/L (23-27)
--- NOTE | 2016-04-17 06:58 | Pulmonology Progress Note ---
Pulmonary - PN: Subj Interval history: This 71-year-old lady had seizures and aspiration pneumonia and is on the ventilator. She has a left lower lobe pneumonia. She is on broad-spectrum antibiotics. Neurology is seeing her. Her mental status/seizures will decide when we can get her extubated. 04/16/16 patient still not very responsive. ABGs and chest x-ray look good. We will start CPAP but not ready to extubate. 04/17/2016 patient remains unresponsive. ABGs are pending. Chest x-ray looks good except for minimal left basilar atelectasis. Tolerating CPAP. Not safe to extubate until mental status improves. Exam (Progress Note) - Constitutional Vitals: Period Temp Pulse Resp BP Sys/Stahl Pulse Ox Last 24 Hr 97.5 F-98.0 F 71-98 8-24 114-193/50-100 100-100 Exam: Patient is sedated. Vital signs normal. Pupils react to light. Orotracheal tube in place. Neck supple no bruits. Chest shows some rhonchi on the left lower lobe. Heart normal rate rhythm no murmurs. Abdomen soft no masses. Bowel sounds present. Extremities no clubbing cyanosis or edema. Results - Labs CBC & BMP: 04/16/16 05:23 04/17/16 04:48 Lab Results: I have reviewed the past 24 hour labs - Diagnostic Findings Procedure: Chest x-ray: image reviewed by me (ET tube in good position. Minimal left basilar atelectasis.) Assessment and Plan (1) Seizure Status: Chronic Assessment and plan: Patient had a recurrent seizure and was intubated. Now all medications for that being followed by neurology. Unclear whether patient has any hypoxic brain injury. Brain CT was okay except for sinusitis. 04/15/2016 continuing seizure medications. Hold sedation and check mental status when neurology is ready. 04/16/16 no further seizures. Decreased level of consciousness. EEG showed evidence of encephalopathy. 04/17/2016 seizures controlled. However patient is not responsive. Current Visit: No (2) Chronic anticoagulation Status: Acute Assessment and plan: She is on Xarelto for atrial fibrillation. Current Visit: Yes (3) Aspiration into airway Status: Acute Assessment and plan: Likely will develop aspiration pneumonia. I have added cefepime both for that and for sinusitis. Already on Cleocin 04/15/2016 patient on Cleocin and cefepime for sinusitis and left lower lobe pneumonia which is likely aspiration. 04/16/16 continuing empiric antibiotics. Chest x-ray does not look bad. Only minimal left basilar infiltrate. 04/17/2016 on empiric antibiotics. Current Visit: Yes Qualifiers: Encounter type: initial encounter Qualified Code(s): T17.908A - Unspecified foreign body in respiratory tract, part unspecified causing other injury, initial encounter (4) Acute respiratory failure Status: Acute Assessment and plan: ABGs look good on current settings. We will not try to wean her until neurologic status is clarified. 04/15/2016 ABGs are pending. Hold weaning until mental status is ready. 04/16/16 ABGs look good. We can start weaning trials but not ready to extubate. 04/17/2016 ABGs pending. Continuing weaning trials. Can extubate until mental status improves. Current Visit: Yes Qualifiers: Respiratory failure complication: unspecified whether with hypoxia or hypercapnia Qualified Code(s): J96.00 - Acute respiratory failure, unspecified whether with hypoxia or hypercapnia
--- NOTE | 2016-04-17 07:50 | XRay Report ---
Referring Physician: Aashish Cartagena MD Exam: XR chest 1V portable Date: April 17, 2016 at 3:38 AM Reason: On ventilator, respiratory failure Comparison: Chest one view portable April 16, 2016 Findings: An endotracheal tube and feeding tube are again in place. The cardiac silhouette is normal in size, but the thoracic aorta is tortuous. There are minimal perihilar and bibasilar opacities which are most consistent with atelectasis. No pneumothorax or definite pleural fluid is identified. The osseous structures appear stable. Impression: There has been no significant change. PROCEDURE INTERPRETED AT [facility] DEPARTMENT OF RADIOLOGY Final Report Signed by: Dr. Ross Vallejo
[2016-04-17] MEDS: SERTRALINE 25 MG TABLET PO SCH (09:32)
[2016-04-17] MEDS: hydrALAZINE 25 MG TABLET PO SCH (09:32)
[2016-04-17] MEDS: METOPROLOL TARTRATE 25 MG TABLET NG SCH ×2 (09:33→20:40)
[2016-04-17] MEDS: FAMOTIDINE 20 MG TABLET PO SCH ×2 (09:33→20:40)
[2016-04-17] MEDS: RIVAROXABAN 20 MG TABLET PO SCH (09:33)
[2016-04-17] MEDS: ALLOPURINOL 100 MG TABLET PO SCH (09:34)
[2016-04-17] MEDS: MIDAZOLAM 100 MG in SODIUM CHLORIDE 0.9% 80 ML IV SCH (09:35)
--- NOTE | 2016-04-17 10:59 | Neurology Progress Note ---
Neurology - PN : Subjective Interval history: Ms. Pritchard seems to be doing okay. No more seizures reported. She is a still unresponsive. She probably will need MRI of the brain after she extubated Exam (Progress Note) - Constitutional Vitals: Period Temp Pulse Resp BP Sys/Stahl Pulse Ox Last 24 Hr 97.6 F-98.2 F 71-98 8-24 102-193/50-100 100-100 Exam: GENERAL: Patient is in no acute distress. NECK: Neck is supple. There is no JVD. No carotid bruits present. No thyroid masses. CVS: First and second heart sounds are normal. There is no S3 present. Regular rate and rhythm. RESPIRATORY: Lungs are clear to auscultation without any rales or rhonchi. On vent ABDOMEN: Soft and non-tender. Bowel sounds are present. There is no hepatosplenomegaly. EXT: There is no palpable edema. Peripheral pulses are present. Skin: No rashes Central Nervous system: General: Unresponsive Speech: Unresponsive Comprehension: Cannot be assessed Facial expressions: Normal Cranial Nerves: Pupils are sluggish but reactive to light. Doll's head I moves are positive. No facial asymmetry is seen. Motor: Bulk and Tone is normal. Strength cannot be assessed Sensory: Cannot be assessed Reflexes: 1+ and symmetrical Cerebellar function: Cannot be assessed Toes: Equivocal Gait: Cannot be assessed Results - Labs CBC & BMP: 04/16/16 05:23 04/17/16 04:48 Assessment and Plan (1) Hypoxic encephalopathy Status: Acute Assessment and plan: Continue current supportive management Consider MRI brain after extubation. Prognosis is guarded Current Visit: Yes (2) Seizure disorder Status: Acute Assessment and plan: Continue Keppra 500 mg IV every 12 Current Visit: Yes
[2016-04-17] MEDS: CIPROFLOXACIN INJ 400 MG in PREMIX 1 EACH IV SCH ×2 (12:39→23:50)
--- NOTE | 2016-04-17 14:18 | Hospitalist Progress Note ---
Assessment and Plan (1) Acute respiratory failure Status: Acute Assessment and plan: Patient intubated for airway safety due to intractable seizure activity. Patient with vomiting and possible aspiration pneumonia. Pulmonary on consult for vent management. Started on clindamycin for anabiotic coverage as well as cefepime Current Visit: Yes Qualifiers: Respiratory failure complication: unspecified whether with hypoxia or hypercapnia Qualified Code(s): J96.00 - Acute respiratory failure, unspecified whether with hypoxia or hypercapnia (2) Aspiration pneumonitis Status: Acute Assessment and plan: Continue clindamycin and cefepime Current Visit: Yes (3) Seizure Status: Chronic Assessment and plan: Keppra 500 mg IV every 12 hours. EEG with generalized slowing. No evidence of ongoing seizure activity Current Visit: No (4) Medical non-compliance Status: Acute Current Visit: No (5) Diabetes mellitus Status: Chronic Assessment and plan: Sliding scale insulin with Accu-Cheks. Start Glucerna tube feeds per dietary. Current Visit: No Qualifiers: Diabetes mellitus type: type 1 (6) Aspiration into airway Status: Acute Current Visit: Yes Qualifiers: Encounter type: initial encounter Qualified Code(s): T17.908A - Unspecified foreign body in respiratory tract, part unspecified causing other injury, initial encounter Hospitalist: Subjective Interval history: Patient seen and examined. Case discussed with nursing staff. She seems to be tolerating CPAP trials well. She is not waking up appropriately or following any commands. She makes spontaneous movements and grimaces to noxious stimuli. She will likely need a PEG tube. If she is unsuccessful in tolerating extubation then will likely need a tracheostomy as well. Family wants full code. Poor prognosis. No further seizure activity. Continue IV Keppra. Neurology following. Exam - Constitutional Vitals: Period Temp Pulse Resp BP Sys/Stahl Pulse Ox Last 24 Hr 97.6 F-98.2 F 73-98 8-29 102-193/50-100 100-100 General appearance: no acute distress - Respiratory Respiratory exam: Present: clear to auscultation bilaterally - Cardiovascular Cardiovascular exam: Present: regular rate and rhythm - GI/Abdominal GI/Abdominal exam: Present: normal bowel sounds, soft. Absent: tenderness, rebound - Extremities Exam Extremities exam: Absent: edema - Neurological Exam Neurological exam: Present: altered, other (patient does not follow commands or arouse to name call. ) Results - Labs CBC & BMP: 04/16/16 05:23 04/17/16 04:48 Lab Results: I have reviewed the past 24 hour labs
[2016-04-18] MEDS: CLINDAMYCIN INJ 900 MG in PREMIX 1 EACH IV SCH ×3 (02:48→18:24)
[2016-04-18 02:50] LABS: ABG Base Excess 3.6 MMOL/L (-2.5-2.5); ABG HCO3 27.7 MMOL/L (20-26); ABG Oxygen Saturation 99.4 % (95-100); ABG PCO2 39.6 MM HG (35-48); ABG PH 7.453 (7.35-7.45); ABG TCO2 24.2 MMOL/L (23-27); Allen Test Positive; Pt O2 Delivery Device Ventilator
[2016-04-18 05:03] LABS: Basophils % 0.2 % (0.0-0.8); Eosinophils # 0.5 10*3/uL (0.0-0.87); Hemoglobin 12.5 GM/DL (12.0-16.0); Immature Granulocytes % 3.3 %; Immature Granulocytes Absolute 0.54 #; Lymphocytes # 3.6 10*3/uL (1.4-4.0); Lymphocytes % 22.1 % (21.3-54.2); Mean Corpuscular HGB Conc 31.3 GM/DL (32-36); Mean Corpuscular Hemoglobin 28 PG (27-34); Mean Corpuscular Volume 88.1 FL (87-102); Mean Platelet Volume 11.4 FL (9.6-12.0); Monocytes # 1.3 10*3/uL (0.11-0.8); Monocytes % 8.1 % (1.7-12.7); Neutrophils # 10.4 10*3/uL (1.4-7.4); Neutrophils % 63.3 % (38.7-73.9); Platelet Count 267 T/CUMM (130-400); Red Blood Count 4.54 MC/CUMM (3.8-5.5); Red Cell Distribution Width 16.5 % (9.3-17.3); White Blood Count 16.5 T/CUMM (4-12)
[2016-04-18] MEDS: INSULIN REGULAR 100 UNIT/ML SUBCUT SCH ×4 (05:36→23:50)
[2016-04-18] MEDS: CEFEPIME 1,000 MG in SODIUM CHLORIDE 0.9% 100 ML IV SCH ×2 (05:36→18:22)
[2016-04-18 05:37] LABS: Calcium 8.8 MG/DL (8.5-10.1); Osmolality,Calculated 299.7 MOS/KG (273-304); Potassium 4.2 MMOL/L (3.5-5.1)
[2016-04-18 05:56] LABS: Band Neutrophils 6 % (0-10); Eosinophils 3 % (0-10); Lymphocytes 20 % (20-55); Metamyelocytes 3 %; Myelocytes 1 %; Platelet Estimate Normal; Segmented Neutrophils 57 % (50-85); Total Cells Counted 100
--- NOTE | 2016-04-18 08:38 | Pulmonology Progress Note ---
Pulmonary - PN: Subj Interval history: This 71-year-old lady had seizures and aspiration pneumonia and is on the ventilator. She has a left lower lobe pneumonia. She is on broad-spectrum antibiotics. Neurology is seeing her. Her mental status/seizures will decide when we can get her extubated. 04/16/16 patient still not very responsive. ABGs and chest x-ray look good. We will start CPAP but not ready to extubate. 04/17/2016 patient remains unresponsive. ABGs are pending. Chest x-ray looks good except for minimal left basilar atelectasis. Tolerating CPAP. Not safe to extubate until mental status improves. 04/18/2016 patient remains unresponsive. Tolerating CPAP but not able to manage her airway if extubated. Continue with weaning trials. Hopefully mental status will improve in the next few days otherwise she would need a tracheostomy. Exam (Progress Note) - Constitutional Vitals: Period Temp Pulse Resp BP Sys/Stahl Pulse Ox Last 24 Hr 97.4 F-98.4 F 76-95 8-29 126-173/50-94 99-100 Exam: Patient is sedated. Vital signs normal. Pupils react to light. Orotracheal tube in place. Neck supple no bruits. Chest shows some rhonchi on the left lower lobe. Heart normal rate rhythm no murmurs. Abdomen soft no masses. Bowel sounds present. Extremities no clubbing cyanosis or edema. Little change from yesterday. Results - Labs CBC & BMP: 04/18/16 04:32 04/18/16 04:32 Lab Results: I have reviewed the past 24 hour labs - Diagnostic Findings Procedure: Chest x-ray: image reviewed by me (Mild left basilar infiltrate otherwise clear. ET tube in good position.) Assessment and Plan (1) Seizure Status: Chronic Assessment and plan: Patient had a recurrent seizure and was intubated. Now all medications for that being followed by neurology. Unclear whether patient has any hypoxic brain injury. Brain CT was okay except for sinusitis. 04/15/2016 continuing seizure medications. Hold sedation and check mental status when neurology is ready. 04/16/16 no further seizures. Decreased level of consciousness. EEG showed evidence of encephalopathy. 04/17/2016 seizures controlled. However patient is not responsive. 04/18/16 no further seizures. Current Visit: No (2) Chronic anticoagulation Status: Acute Assessment and plan: She is on Xarelto for atrial fibrillation. Current Visit: Yes (3) Aspiration into airway Status: Acute Assessment and plan: Likely will develop aspiration pneumonia. I have added cefepime both for that and for sinusitis. Already on Cleocin 04/15/2016 patient on Cleocin and cefepime for sinusitis and left lower lobe pneumonia which is likely aspiration. 04/16/16 continuing empiric antibiotics. Chest x-ray does not look bad. Only minimal left basilar infiltrate. 04/17/2016 on empiric antibiotics. 04/18/2016 continuing antibiotics for aspiration pneumonia. Current Visit: Yes Qualifiers: Encounter type: initial encounter Qualified Code(s): T17.908A - Unspecified foreign body in respiratory tract, part unspecified causing other injury, initial encounter (4) Acute respiratory failure Status: Acute Assessment and plan: ABGs look good on current settings. We will not try to wean her until neurologic status is clarified. 04/15/2016 ABGs are pending. Hold weaning until mental status is ready. 04/16/16 ABGs look good. We can start weaning trials but not ready to extubate. 04/17/2016 ABGs pending. Continuing weaning trials. Can extubate until mental status improves. 04/18/2016 continuing weaning trials. Await mental status improvement. Current Visit: Yes Qualifiers: Respiratory failure complication: unspecified whether with hypoxia or hypercapnia Qualified Code(s): J96.00 - Acute respiratory failure, unspecified whether with hypoxia or hypercapnia
--- NOTE | 2016-04-18 09:31 | XRay Report ---
XR chest 1V portable Indication: Ventilator patient Comparison: 17 April 2016 Findings: The heart and mediastinum are stable in size and configuration. The lines and tubes are unchanged in position. The pulmonary vascularity is normal in caliber. No lung infiltrates, effusions, pneumothorax or other abnormality is demonstrated. Impression: No significant change PROCEDURE INTERPRETED AT [facility] DEPARTMENT OF RADIOLOGY Final Report Signed by: Dr. Cabrera Mitchell
[2016-04-18] MEDS: hydrALAZINE 25 MG TABLET PO SCH (09:39)
[2016-04-18] MEDS: FAMOTIDINE 20 MG TABLET PO SCH ×2 (09:39→21:24)
[2016-04-18] MEDS: METOPROLOL TARTRATE 25 MG TABLET NG SCH ×2 (09:39→21:24)
[2016-04-18] MEDS: ALLOPURINOL 100 MG TABLET PO SCH (09:40)
[2016-04-18] MEDS: SERTRALINE 25 MG TABLET PO SCH (09:40)
--- NOTE | 2016-04-18 11:08 | Hospitalist Progress Note ---
Assessment and Plan (1) Acute respiratory failure Status: Acute Assessment and plan: Patient intubated for airway safety due to intractable seizure activity. Patient with vomiting and possible aspiration pneumonia. Pulmonary on consult for vent management. Started on clindamycin for anabiotic coverage as well as cefepime Consider Trach next week Current Visit: Yes Qualifiers: Respiratory failure complication: unspecified whether with hypoxia or hypercapnia Qualified Code(s): J96.00 - Acute respiratory failure, unspecified whether with hypoxia or hypercapnia (2) Aspiration pneumonitis Status: Acute Assessment and plan: Continue clindamycin and cefepime Current Visit: Yes (3) Seizure Status: Chronic Assessment and plan: Keppra 500 mg IV every 12 hours. EEG with generalized slowing. No evidence of ongoing seizure activity Current Visit: No (4) Medical non-compliance Status: Acute Current Visit: No (5) Diabetes mellitus Status: Chronic Assessment and plan: Sliding scale insulin with Accu-Cheks. Start Glucerna tube feeds per dietary. Current Visit: No Qualifiers: Diabetes mellitus type: type 1 (6) Aspiration into airway Status: Acute Current Visit: Yes Qualifiers: Encounter type: initial encounter Qualified Code(s): T17.908A - Unspecified foreign body in respiratory tract, part unspecified causing other injury, initial encounter Hospitalist: Subjective Interval history: Seen and examined. Notes reviewed. Might need a trach for airway management if mental status does not improve. Consider LTAC eval. Exam - Constitutional Vitals: Period Temp Pulse Resp BP Sys/Stahl Pulse Ox Last 24 Hr 97.4 F-98.4 F 76-95 8-33 126-173/50-94 97-100 General appearance: no acute distress - Head Head exam: Present: normal inspection - Respiratory Respiratory exam: Present: clear to auscultation bilaterally - Cardiovascular Cardiovascular exam: Present: regular rate and rhythm - GI/Abdominal GI/Abdominal exam: Present: normal bowel sounds, soft. Absent: tenderness, rebound - Extremities Exam Extremities exam: Absent: edema - Neurological Exam Neurological exam: Present: altered, other (unresponsive to verbal command. withdraws from pain and has spontaneous movements. ) - Skin Skin exam: Present: normal color, warm, dry Results - Labs CBC & BMP: 04/18/16 04:32 04/18/16 04:32 Lab Results: I have reviewed the past 24 hour labs
[2016-04-18] MEDS: CIPROFLOXACIN INJ 400 MG in PREMIX 1 EACH IV SCH ×2 (11:55→23:50)
[2016-04-18] MEDS: MIDAZOLAM 100 MG in SODIUM CHLORIDE 0.9% 80 ML IV SCH (12:01)
[2016-04-19] MEDS: CLINDAMYCIN INJ 900 MG in PREMIX 1 EACH IV SCH ×3 (01:57→18:06)
[2016-04-19 02:52] LABS: ABG Base Excess 1.7 MMOL/L (-2.5-2.5); ABG Oxygen Saturation 99.6 % (95-100); ABG PCO2 38.4 MM HG (35-48); ABG PH 7.436 (7.35-7.45); ABG TCO2 22.6 MMOL/L (23-27); Allen Test Positive; Pt O2 Delivery Device Ventilator
[2016-04-19] MEDS: INSULIN REGULAR 100 UNIT/ML SUBCUT SCH ×3 (05:51→18:11)
[2016-04-19] MEDS: CEFEPIME 1,000 MG in SODIUM CHLORIDE 0.9% 100 ML IV SCH ×2 (05:51→17:24)
--- NOTE | 2016-04-19 08:20 | Hospitalist Progress Note ---
Assessment and Plan (1) Acute respiratory failure Status: Acute Assessment and plan: Patient intubated for airway safety due to intractable seizure activity. Patient with vomiting and possible aspiration pneumonia. Pulmonary on consult for vent management. Started on clindamycin for anabiotic coverage as well as cefepime Consider Trach next week Current Visit: Yes Qualifiers: Respiratory failure complication: unspecified whether with hypoxia or hypercapnia Qualified Code(s): J96.00 - Acute respiratory failure, unspecified whether with hypoxia or hypercapnia (2) Aspiration pneumonitis Status: Acute Assessment and plan: Continue clindamycin and cefepime Current Visit: Yes (3) Seizure Status: Chronic Assessment and plan: Keppra 500 mg IV every 12 hours. EEG with generalized slowing. No evidence of ongoing seizure activity Current Visit: No (4) Medical non-compliance Status: Acute Current Visit: No (5) Diabetes mellitus Status: Chronic Assessment and plan: Sliding scale insulin with Accu-Cheks. Start Glucerna tube feeds per dietary. Current Visit: No Qualifiers: Diabetes mellitus type: type 1 (6) Aspiration into airway Status: Acute Current Visit: Yes Qualifiers: Encounter type: initial encounter Qualified Code(s): T17.908A - Unspecified foreign body in respiratory tract, part unspecified causing other injury, initial encounter Hospitalist: Subjective Interval history: Patient seen and examined. She remains mechanically ventilated. She is not receiving any IV sedation. She is minimally responsive and does not follow commands. She withdraws from noxious stimuli. She does have spontaneous movements that are nonpurposeful. It does not appear that she can protect her airway and will likely need a tracheostomy placement in the near future. Case discussed with pulmonary at the bedside. We'll consult for tracheostomy and PEG tube placement early next week and start looking for placement. There is no evidence of ongoing seizure activity. Exam - Constitutional Vitals: Period Temp Pulse Resp BP Sys/Stahl Pulse Ox Last 24 Hr 97.4 F-98.9 F 78-92 8-33 121-183/51-82 96-100 General appearance: no acute distress - Head Head exam: Present: normal inspection, normocephalic - ENT ENT exam: Present: other (ET tube and NG tube in place) - Respiratory Respiratory exam: Present: clear to auscultation bilaterally - Cardiovascular Cardiovascular exam: Present: regular rate and rhythm - GI/Abdominal GI/Abdominal exam: Present: normal bowel sounds, soft. Absent: tenderness, rebound - Extremities Exam Extremities exam: Absent: edema - Neurological Exam Neurological exam: Present: altered, other (responsive to noxious stimuli. Does not follow commands.) Results - Labs CBC & BMP: 04/18/16 04:32 04/18/16 04:32 Lab Results: I have reviewed the past 24 hour labs - Diagnostic Findings Procedure: Chest x-ray: image reviewed by me
--- NOTE | 2016-04-19 08:27 | Pulmonology Progress Note ---
Pulmonary - PN: Subj Interval history: This 71-year-old lady had seizures and aspiration pneumonia and is on the ventilator. She has a left lower lobe pneumonia. She is on broad-spectrum antibiotics. Neurology is seeing her. Her mental status/seizures will decide when we can get her extubated. 04/16/16 patient still not very responsive. ABGs and chest x-ray look good. We will start CPAP but not ready to extubate. 04/17/2016 patient remains unresponsive. ABGs are pending. Chest x-ray looks good except for minimal left basilar atelectasis. Tolerating CPAP. Not safe to extubate until mental status improves. 04/18/2016 patient remains unresponsive. Tolerating CPAP but not able to manage her airway if extubated. Continue with weaning trials. Hopefully mental status will improve in the next few days otherwise she would need a tracheostomy. 04/19/2016 patient remains unresponsive. Once again tolerated CPAP is okay but not ready for extubation. Mental status will need to improve. Likely she will need a tracheostomy until her mental status improves and possibly long-term. Exam (Progress Note) - Constitutional Vitals: Period Temp Pulse Resp BP Sys/Stahl Pulse Ox Last 24 Hr 97.4 F-98.9 F 78-92 8-33 121-183/51-82 96-100 Exam: Patient is sedated. Vital signs normal. Pupils react to light. Orotracheal tube in place. Neck supple no bruits. Chest shows some rhonchi on the left lower lobe. Heart normal rate rhythm no murmurs. Abdomen soft no masses. Bowel sounds present. Extremities no clubbing cyanosis or edema. Again, little change from yesterday. Results - Labs CBC & BMP: 04/18/16 04:32 04/18/16 04:32 Lab Results: I have reviewed the past 24 hour labs - Diagnostic Findings Procedure: Chest x-ray: image reviewed by me (Chest x-ray looks pretty clear. ET tube good position.) Assessment and Plan (1) Seizure Status: Chronic Assessment and plan: Patient had a recurrent seizure and was intubated. Now all medications for that being followed by neurology. Unclear whether patient has any hypoxic brain injury. Brain CT was okay except for sinusitis. 04/15/2016 continuing seizure medications. Hold sedation and check mental status when neurology is ready. 04/16/16 no further seizures. Decreased level of consciousness. EEG showed evidence of encephalopathy. 04/17/2016 seizures controlled. However patient is not responsive. 04/18/16 no further seizures. 04/19/2016 on anti-seizure medications. Current Visit: No (2) Chronic anticoagulation Status: Acute Assessment and plan: She is on Xarelto for atrial fibrillation. Current Visit: Yes (3) Aspiration into airway Status: Acute Assessment and plan: Likely will develop aspiration pneumonia. I have added cefepime both for that and for sinusitis. Already on Cleocin 04/15/2016 patient on Cleocin and cefepime for sinusitis and left lower lobe pneumonia which is likely aspiration. 04/16/16 continuing empiric antibiotics. Chest x-ray does not look bad. Only minimal left basilar infiltrate. 04/17/2016 on empiric antibiotics. 04/18/2016 continuing antibiotics for aspiration pneumonia. 04/19/2016 chest x-ray is improved. ABGs improved. Continuing antibiotics for now. Current Visit: Yes Qualifiers: Encounter type: initial encounter Qualified Code(s): T17.908A - Unspecified foreign body in respiratory tract, part unspecified causing other injury, initial encounter (4) Acute respiratory failure Status: Acute Assessment and plan: ABGs look good on current settings. We will not try to wean her until neurologic status is clarified. 04/15/2016 ABGs are pending. Hold weaning until mental status is ready. 04/16/16 ABGs look good. We can start weaning trials but not ready to extubate. 04/17/2016 ABGs pending. Continuing weaning trials. Can extubate until mental status improves. 04/18/2016 continuing weaning trials. Await mental status improvement. 04/19/16 patient tolerating weaning trials but not able to defend her airway. Will continue to check mechanics, but likely will require tracheostomy. Current Visit: Yes Qualifiers: Respiratory failure complication: unspecified whether with hypoxia or hypercapnia Qualified Code(s): J96.00 - Acute respiratory failure, unspecified whether with hypoxia or hypercapnia
[2016-04-19] MEDS: MIDAZOLAM 100 MG in SODIUM CHLORIDE 0.9% 80 ML IV SCH (08:35)
--- NOTE | 2016-04-19 09:34 | XRay Report ---
XR chest 1V portable Indication: Ventilator patient Comparison: 18 April 2016 Findings: The heart and mediastinum are stable in size and configuration. The lines and tubes are unchanged in position. The pulmonary vascularity is normal in caliber. No definite lung infiltrates, effusions, pneumothorax or other abnormality is demonstrated. Impression: No significant change PROCEDURE INTERPRETED AT [facility] DEPARTMENT OF RADIOLOGY Final Report Signed by: Dr. Cabrera Mitchell
[2016-04-19] MEDS: hydrALAZINE 25 MG TABLET PO SCH (10:04)
[2016-04-19] MEDS: ALLOPURINOL 100 MG TABLET PO SCH (10:04)
[2016-04-19] MEDS: SERTRALINE 25 MG TABLET PO SCH (10:04)
[2016-04-19] MEDS: METOPROLOL TARTRATE 25 MG TABLET NG SCH ×2 (10:05→21:19)
[2016-04-19] MEDS: FAMOTIDINE 20 MG TABLET PO SCH ×2 (10:05→21:18)
[2016-04-19] MEDS: CIPROFLOXACIN INJ 400 MG in PREMIX 1 EACH IV SCH (12:08)
[2016-04-20] MEDS: CIPROFLOXACIN INJ 400 MG in PREMIX 1 EACH IV SCH ×3 (00:11→23:58)
[2016-04-20] MEDS: INSULIN REGULAR 100 UNIT/ML SUBCUT SCH ×5 (00:12→23:57)
[2016-04-20] MEDS: CLINDAMYCIN INJ 900 MG in PREMIX 1 EACH IV SCH ×3 (03:00→18:45)
[2016-04-20] MEDS: CEFEPIME 1,000 MG in SODIUM CHLORIDE 0.9% 100 ML IV SCH ×2 (05:36→19:15)
[2016-04-20 05:56] LABS: Calcium 8.3 MG/DL (8.5-10.1); Magnesium 2.3 MG/DL (1.8-2.4); Osmolality,Calculated 294.3 MOS/KG (273-304); Phosphorous 3.3 MG/DL (2.5-4.9); Potassium 4.8 MMOL/L (3.5-5.1); Prealbumin 11.1 MG/DL (20-40)
--- NOTE | 2016-04-20 07:26 | Pulmonology Progress Note ---
Pulmonary - PN: Subj Interval history: This 71-year-old lady had seizures and aspiration pneumonia and is on the ventilator. She has a left lower lobe pneumonia. She is on broad-spectrum antibiotics. Neurology is seeing her. Her mental status/seizures will decide when we can get her extubated. 04/16/16 patient still not very responsive. ABGs and chest x-ray look good. We will start CPAP but not ready to extubate. 04/17/2016 patient remains unresponsive. ABGs are pending. Chest x-ray looks good except for minimal left basilar atelectasis. Tolerating CPAP. Not safe to extubate until mental status improves. 04/18/2016 patient remains unresponsive. Tolerating CPAP but not able to manage her airway if extubated. Continue with weaning trials. Hopefully mental status will improve in the next few days otherwise she would need a tracheostomy. 04/19/2016 patient remains unresponsive. Once again tolerated CPAP is okay but not ready for extubation. Mental status will need to improve. Likely she will need a tracheostomy until her mental status improves and possibly long-term. 04/20/2016 patient remains unresponsive. Tolerating CPAP. We should go ahead and consult ENT and plan tracheostomy later this week. Exam (Progress Note) - Constitutional Vitals: Period Temp Pulse Resp BP Sys/Stahl Pulse Ox Last 24 Hr 97 F-98.6 F 78-106 8-29 101-178/51-98 99-100 Exam: Patient is unresponsive. Vital signs normal. Pupils react to light. Orotracheal tube in place. Neck supple no bruits. Chest shows some rhonchi on the left lower lobe. Heart normal rate rhythm no murmurs. Abdomen soft no masses. Bowel sounds present. Extremities no clubbing cyanosis or edema. Again, little change from yesterday. Results - Labs CBC & BMP: 04/18/16 04:32 04/20/16 04:33 Lab Results: I have reviewed the past 24 hour labs Assessment and Plan (1) Seizure Status: Chronic Assessment and plan: Patient had a recurrent seizure and was intubated. Now all medications for that being followed by neurology. Unclear whether patient has any hypoxic brain injury. Brain CT was okay except for sinusitis. 04/15/2016 continuing seizure medications. Hold sedation and check mental status when neurology is ready. 04/16/16 no further seizures. Decreased level of consciousness. EEG showed evidence of encephalopathy. 04/17/2016 seizures controlled. However patient is not responsive. 04/18/16 no further seizures. 04/19/2016 on anti-seizure medications. 04/20/2016 no further seizures Current Visit: No (2) Chronic anticoagulation Status: Acute Assessment and plan: She is on Xarelto for atrial fibrillation. Current Visit: Yes (3) Aspiration into airway Status: Acute Assessment and plan: Likely will develop aspiration pneumonia. I have added cefepime both for that and for sinusitis. Already on Cleocin 04/15/2016 patient on Cleocin and cefepime for sinusitis and left lower lobe pneumonia which is likely aspiration. 04/16/16 continuing empiric antibiotics. Chest x-ray does not look bad. Only minimal left basilar infiltrate. 04/17/2016 on empiric antibiotics. 04/18/2016 continuing antibiotics for aspiration pneumonia. 04/19/2016 chest x-ray is improved. ABGs improved. Continuing antibiotics for now. 04/20/2016 she has improved with empiric treatment. Continue antibiotics. Current Visit: Yes Qualifiers: Encounter type: initial encounter Qualified Code(s): T17.908A - Unspecified foreign body in respiratory tract, part unspecified causing other injury, initial encounter (4) Acute respiratory failure Status: Acute Assessment and plan: ABGs look good on current settings. We will not try to wean her until neurologic status is clarified. 04/15/2016 ABGs are pending. Hold weaning until mental status is ready. 04/16/16 ABGs look good. We can start weaning trials but not ready to extubate. 04/17/2016 ABGs pending. Continuing weaning trials. Can extubate until mental status improves. 04/18/2016 continuing weaning trials. Await mental status improvement. 04/19/16 patient tolerating weaning trials but not able to defend her airway. Will continue to check mechanics, but likely will require tracheostomy. 04/20/2016 ABGs pending. Continuing with CPAP trials. Mental status will not allow extubation. She has been 3 days or so without any sedation at all other than seizure medic occasions and she is unresponsive. Current Visit: Yes Qualifiers: Respiratory failure complication: unspecified whether with hypoxia or hypercapnia Qualified Code(s): J96.00 - Acute respiratory failure, unspecified whether with hypoxia or hypercapnia
[2016-04-20 07:39] LABS: Allen Test Positive; Pt O2 Delivery Device Ventilator
[2016-04-20 07:40] LABS: ABG Base Excess 1.7 MMOL/L (-2.5-2.5); ABG HCO3 25.9 MMOL/L (20-26); ABG Oxygen Saturation 97.6 % (95-100); ABG PCO2 39.3 MM HG (35-48); ABG PH 7.429 (7.35-7.45); ABG PO2 95.1 MM HG (80-95); ABG TCO2 22.8 MMOL/L (23-27)
[2016-04-20] MEDS: ALLOPURINOL 100 MG TABLET PO SCH (09:27)
[2016-04-20] MEDS: SERTRALINE 25 MG TABLET PO SCH (09:27)
[2016-04-20] MEDS: hydrALAZINE 25 MG TABLET PO SCH (09:28)
[2016-04-20] MEDS: FAMOTIDINE 20 MG TABLET PO SCH ×2 (09:28→21:15)
[2016-04-20] MEDS: METOPROLOL TARTRATE 25 MG TABLET NG SCH ×2 (09:28→21:15)
--- NOTE | 2016-04-20 12:09 | Hospitalist Progress Note ---
Assessment and Plan (1) Acute respiratory failure Status: Acute Assessment and plan: Patient intubated for airway safety due to intractable seizure activity. Patient with vomiting and possible aspiration pneumonia. Pulmonary on consult for vent management. Started on clindamycin for anabiotic coverage as well as cefepime Consider Trach next week Current Visit: Yes Qualifiers: Respiratory failure complication: unspecified whether with hypoxia or hypercapnia Qualified Code(s): J96.00 - Acute respiratory failure, unspecified whether with hypoxia or hypercapnia (2) Aspiration pneumonitis Status: Acute Assessment and plan: Continue clindamycin and cefepime Current Visit: Yes (3) Seizure Status: Chronic Assessment and plan: Keppra 500 mg IV every 12 hours. EEG with generalized slowing. No evidence of ongoing seizure activity Current Visit: No (4) Medical non-compliance Status: Acute Current Visit: No (5) Diabetes mellitus Status: Chronic Assessment and plan: Sliding scale insulin with Accu-Cheks. Start Glucerna tube feeds per dietary. Current Visit: No Qualifiers: Diabetes mellitus type: type 1 (6) Aspiration into airway Status: Acute Current Visit: Yes Qualifiers: Encounter type: initial encounter Qualified Code(s): T17.908A - Unspecified foreign body in respiratory tract, part unspecified causing other injury, initial encounter Hospitalist: Subjective Interval history: No acute events or changes overnight. Remains on the vent. Not receiving sedation. Remains essentially unresponsive although she makes spontaneous movements but does not follow commands. She does tolerate CPAP trials. Exam - Constitutional Vitals: Period Temp Pulse Resp BP Sys/Stahl Pulse Ox Last 24 Hr 97 F-98.6 F 81-106 8-29 127-178/48-98 99-100 General appearance: no acute distress - ENT ENT exam: Present: other (ET tube and NGT in place) - Respiratory Respiratory exam: Present: clear to auscultation bilaterally - Cardiovascular Cardiovascular exam: Present: regular rate and rhythm - GI/Abdominal GI/Abdominal exam: Present: normal bowel sounds, soft. Absent: tenderness, rebound - Extremities Exam Extremities exam: Absent: edema - Skin Skin exam: Present: normal color, warm, dry Results - Labs CBC & BMP: 04/18/16 04:32 04/20/16 04:33 Lab Results: I have reviewed the past 24 hour labs
--- NOTE | 2016-04-20 14:41 | XRay Report ---
History: Patient on ventilator Date: 04/20/2016 Study: Chest x-ray AP portable Comparison exam: Chest x-ray 04/19/2016 The endotracheal and nasogastric tubes remain in stable position. The cardiomediastinal silhouette is unchanged. The pulmonary vasculature is not engorged. There is no gross pleural effusion. The lungs are generally clear for shallow breath. There is no gross pleural effusion. There is mild thoracic spondylosis. Impression: No significant overall change from the previous study PROCEDURE INTERPRETED AT [facility] DEPARTMENT OF RADIOLOGY Final Report Signed by: Dr. Kari Kiser
--- NOTE | 2016-04-20 15:44 | Neurology Progress Note ---
Neurology - PN : Subjective Interval history: Ms. Pritchard seems to be doing about the same. No new problems reported. No seizures reported. Still quite unresponsive. Still on vent. She is going to get PEG and trach done. Exam (Progress Note) - Constitutional Vitals: Period Temp Pulse Resp BP Sys/Stahl Pulse Ox Last 24 Hr 97 F-98.6 F 81-106 8-29 127-171/48-98 99-100 Exam: GENERAL: Patient is in no acute distress. NECK: Neck is supple. There is no JVD. No carotid bruits present. No thyroid masses. CVS: First and second heart sounds are normal. There is no S3 present. Regular rate and rhythm. RESPIRATORY: Lungs are clear to auscultation without any rales or rhonchi. On vent ABDOMEN: Soft and non-tender. Bowel sounds are present. There is no hepatosplenomegaly. EXT: There is no palpable edema. Peripheral pulses are present. Skin: No rashes Central Nervous system: General: Unresponsive Speech: Unresponsive Comprehension: Cannot be assessed Facial expressions: Normal Cranial Nerves: Pupils are sluggish but reactive to light. Doll's head I moves are positive. No facial asymmetry is seen. Motor: Bulk and Tone is normal. Strength cannot be assessed Sensory: Cannot be assessed Reflexes: 1+ and symmetrical Cerebellar function: Cannot be assessed Toes: Equivocal Gait: Cannot be assessed Results - Labs CBC & BMP: 04/18/16 04:32 04/20/16 04:33 Assessment and Plan (1) Hypoxic encephalopathy Status: Acute Assessment and plan: Continue current supportive management Prognosis is guarded No further neurological recommendation at this time Sign off please call as needed Current Visit: Yes (2) Seizure disorder Status: Acute Assessment and plan: Change Keppra to p.o. Current Visit: Yes
--- NOTE | 2016-04-20 16:18 | Consultation ---
Assessment and Plan - Time spent with patient Time spent with patient: Less than 30 minutes (1) Ventilator dependent Status: Acute Assessment and plan: I will tentatively plan tracheostomy placement on Wednesday we will get a carotid angiogram as her carotid appears near to midline it with possibly a high riding innominate because of neck adiposity it is hard to palpate the exact course of the vasculature so we will obtain the above imaging and evaluate the patient tomorrow. Thank you very much for this consult Current Visit: Yes (2) Chronic respiratory failure Status: Acute Current Visit: Yes (3) Hypoxic encephalopathy Status: Acute Current Visit: Yes History of Present Illness - Data of Consult Patient: new to practice Consult date: 04/20/16 Requesting Physician: Aashish Cartagena - Consult Narrative Reason for consult: Ventilator dependent respiratory failure History of present illness: Ms. Pritchard is a 71 year old female ventilator dependent respiratory failure secondary to hypoxic encephalopathy. ENT was consulted for evaluation and treatment CC: Kaitlin Aranda MD - Home Medications and Allergies Home Medications: Home Medications Medication Instructions Recorded Confirmed Type Allopurinol 2 tablet PO DAILY 04/11/16 04/14/16 History Diphenoxylate HCl/Atropine 2 tablet PO Q6HR PRN 04/11/16 04/14/16 History [Diphenoxylate/Atropine 2.5-0.025 mg Tab] Famotidine 20 mg PO BID 04/11/16 04/14/16 History Hum Insulin NPH/Reg Insulin Hm 5 units SUBCUT AC SUPPER 04/11/16 04/11/16 History [NovoLIN 70/30] Hum Insulin NPH/Reg Insulin Hm 12 units SUBCUT QAM 04/11/16 04/14/16 History [NovoLIN 70/30] Ondansetron Odt Tab [Zofran Odt] 4 mg PO Q6HR PRN 04/11/16 04/14/16 History Pravastatin [Pravachol] 20 mg PO BEDTIME 04/11/16 04/14/16 History Rivaroxaban [Xarelto] 20 mg PO DAILY 04/11/16 04/14/16 History Sertraline HCl 25 mg PO DAILY 04/11/16 04/14/16 History hydrALAZINE TAB [Apresoline Tab] 25 mg PO DAILY 04/11/16 04/14/16 History levETIRAcetam TAB [Keppra Tab] 1,000 mg PO BID 04/14/16 04/14/16 History Allergies/Adverse Reactions: Allergies Allergy/AdvReac Type Severity Reaction Status Date / Time No Known Allergies Allergy Verified 04/14/16 08:32 12 point system: reviewed and no additional remarkable complaints except as stated Medical,Surgical,& Family Hx - Medical History Cardio: History of: Hypertension Psychological: History of: Depression Neurology: History of: Seizures Endocrine: History of: Diabetes Mellitus (IDDM) Rheumatology: History of;: Gout - Surgical History Thoracic Surgeries: Patient denies;: Organ Transplant Neurologic Surgeries: Patient denies: Neurologic Surgery Orthopedic Surgeries: Patient denies;: Total Knee Replacement - Family History Family History: Denies;: Additional Family History ( is not sure of family history) - Social History Smoking Status: Unknown if ever smoked Frequency of Alcohol Use: Unknown Type of Drug Use: Unknown Exam - Constitutional Vitals: Period Temp Pulse Resp BP Sys/Stahl Pulse Ox Last 24 Hr 97 F-98.6 F 81-106 8-29 127-165/48-98 99-100 General appearance: over weight, other (Sedated and intubated) - Head Head exam: Present: normal inspection, normocephalic - ENT ENT exam: Present: normal exam (Obscured exam secondary to intubation), normal external ear exam, normal oropharynx (Obscured exam secondary to intubation) - Neck Neck exam: Present: normal inspection (Carotid pulsations near the midline of the neck I will get a CT with contrast to evaluate possible high riding innominate) - Respiratory Respiratory exam: Present: other (Sedated and intubated) - GI/Abdominal GI/Abdominal exam: Present: normal bowel sounds - Neurological Exam Neurological exam: Present: other (Sedated and intubated) - Psychiatric Psychiatric exam: Present: other (Sedated and intubated) - Skin Skin exam: Present: normal color, warm Results - Labs CBC & BMP: 04/18/16 04:32 04/20/16 04:33 Lab Results: I have reviewed the past 24 hour labs
--- NOTE | 2016-04-20 18:36 | Gastrointestinal Consult Note ---
Assessment and Plan (1) Dysphagia Status: Acute Assessment and plan: This is likely due to hypoxic encephalopathy, the patient is not likely to come off the ventilator anytime soon and is about to acquire a tracheostomy which will further inhibit her ability to swallow effectively. We will place a PEG tube tomorrow if family consents and the patient's bedside. Her anticoagulation has been discontinued on Wednesday and she is ready to have this placement done tomorrow. Current Visit: Yes (2) Hypoxic encephalopathy Status: Acute Assessment and plan: This is not likely to recover anytime soon therefore PEG tube placement is warranted at this point along with tracheostomy placement given her long-term prognosis. Current Visit: Yes (3) Chronic respiratory failure Status: Acute Assessment and plan: See above. The risks of the above procedure were discussed with the patient's family and include but are not limited to: Bleeding, infection, perforation, cardiac and pulmonary compromise. Current Visit: Yes History of Present Illness Chief complaint: Status post anoxic brain injury with ventilator dependence--> PEG History of present illness: Ms. Pritchard is a 71 year old female who has a history of noncompliance and witnessed seizure activity resulting in anoxic brain injury and has been on the ventilator without significant ability to wean since 04/14/16. She has not shown any significant improvement in response. She is thought to have also suffered an aspiration during her seizure activity CT scan demonstrated simply sinusitis. EEG has been supportive of a severe encephalopathy possibly secondary to the postictal state versus post hypoxemic state versus metabolic disorder or increased intracranial pressure. No seizure activity was seen on the last EEG done on 04/15/16. At this point she requires a PEG tube placement for ongoing care presumably at residential facility versus rehab facility. Dr. Lundberg has been consulted to place a tracheostomy as well. Home Medications Medication Instructions Recorded Confirmed Type Allopurinol 2 tablet PO DAILY 04/11/16 04/14/16 History Diphenoxylate HCl/Atropine 2 tablet PO Q6HR PRN 04/11/16 04/14/16 History [Diphenoxylate/Atropine 2.5-0.025 mg Tab] Famotidine 20 mg PO BID 04/11/16 04/14/16 History Hum Insulin NPH/Reg Insulin Hm 5 units SUBCUT AC SUPPER 04/11/16 04/11/16 History [NovoLIN 70/30] Hum Insulin NPH/Reg Insulin Hm 12 units SUBCUT QAM 04/11/16 04/14/16 History [NovoLIN 70/30] Ondansetron Odt Tab [Zofran Odt] 4 mg PO Q6HR PRN 04/11/16 04/14/16 History Pravastatin [Pravachol] 20 mg PO BEDTIME 04/11/16 04/14/16 History Rivaroxaban [Xarelto] 20 mg PO DAILY 04/11/16 04/14/16 History Sertraline HCl 25 mg PO DAILY 04/11/16 04/14/16 History hydrALAZINE TAB [Apresoline Tab] 25 mg PO DAILY 04/11/16 04/14/16 History levETIRAcetam TAB [Keppra Tab] 1,000 mg PO BID 04/14/16 04/14/16 History Allergies Allergy/AdvReac Type Severity Reaction Status Date / Time No Known Allergies Allergy Verified 04/14/16 08:32 Medical,Surgical,& Family Hx - Medical History Cardio: History of: Hypertension Psychological: History of: Depression Neurology: History of: Seizures Endocrine: History of: Diabetes Mellitus (IDDM) Rheumatology: History of;: Gout - Surgical History Thoracic Surgeries: Patient denies;: Organ Transplant Neurologic Surgeries: Patient denies: Neurologic Surgery Orthopedic Surgeries: Patient denies;: Total Knee Replacement - Family History Family History: Denies;: Additional Family History ( is not sure of family history) - Social History Smoking Status: Unknown if ever smoked Frequency of Alcohol Use: Unknown Type of Drug Use: Unknown ROS unobtainable: due to endotracheal tube, due to encephalopathy Exam - Constitutional Vitals: Period Temp Pulse Resp BP Sys/Stahl Pulse Ox Last 24 Hr 97 F-98.6 F 81-106 8-29 127-158/48-98 99-100 General appearance: over weight - Head Head exam: Present: normal inspection - Eye Eye exam: Present: other (Fixed midpoint pupils, I did not check for doll's eyes ) - Respiratory Respiratory exam: Present: clear to auscultation bilaterally. Absent: rhonchi, stridor, wheezes - Cardiovascular Cardiovascular exam: Present: regular rate and rhythm - GI/Abdominal GI/Abdominal exam: Present: normal bowel sounds, soft. Absent: distended, tenderness, rebound - Neurological Exam Neurological exam: Present: altered (The patient is nonresponsive) - Psychiatric Psychiatric exam: Present: flat affect - Skin Skin exam: Present: warm Results - Labs CBC & BMP: 04/18/16 04:32 04/20/16 04:33
[2016-04-20] MEDS: MIDAZOLAM 100 MG in SODIUM CHLORIDE 0.9% 80 ML IV SCH (20:58)
[2016-04-20] MEDS: levETIRAcetam 500 MG TABLET PO SCH (21:15)
[2016-04-21] MEDS: CLINDAMYCIN INJ 900 MG in PREMIX 1 EACH IV SCH ×3 (02:21→19:10)
[2016-04-21 04:22] LABS: Basophils # 0.1 10*3/uL (0.0-0.2); Basophils % 0.3 % (0.0-0.8); Eosinophils # 0.2 10*3/uL (0.0-0.87); Eosinophils % 1.2 % (0.00-10.9); Hematocrit 37.9 VOL% (35.7-47.0); Hemoglobin 12.3 GM/DL (12.0-16.0); Immature Granulocytes % 4.1 %; Immature Granulocytes Absolute 0.79 #; Lymphocytes # 2.9 10*3/uL (1.4-4.0); Mean Corpuscular HGB Conc 32.5 GM/DL (32-36); Mean Corpuscular Hemoglobin 28 PG (27-34); Mean Corpuscular Volume 84.6 FL (87-102); Monocytes # 1.8 10*3/uL (0.11-0.8); Monocytes % 9.3 % (1.7-12.7); Neutrophils # 13.4 10*3/uL (1.4-7.4); Neutrophils % 70.1 % (38.7-73.9); Platelet Count 292 T/CUMM (130-400); Red Blood Count 4.48 MC/CUMM (3.8-5.5); Red Cell Distribution Width 16.1 % (9.3-17.3); White Blood Count 19.2 T/CUMM (4-12)
[2016-04-21 04:26] LABS: INR 1.1; PT Patient Result 11.5 SECS
[2016-04-21 04:43] LABS: ABG Base Excess 0.8 MMOL/L (-2.5-2.5); ABG HCO3 25.1 MMOL/L (20-26); ABG PCO2 34.6 MM HG (35-48); ABG PH 7.455 (7.35-7.45); ABG PO2 97.7 MM HG (80-95); ABG TCO2 21.8 MMOL/L (23-27); Pt O2 Delivery Device Ventilator
[2016-04-21 04:44] LABS: Eosinophils 1 % (0-10); Hypochromasia Slight; Lymphocytes 9 % (20-55); Ovalocytes Slight; Platelet Estimate Normal; Segmented Neutrophils 83 % (50-85); Total Cells Counted 100
[2016-04-21 04:48] LABS: Calcium 8.9 MG/DL (8.5-10.1); Magnesium 2.3 MG/DL (1.8-2.4); Osmolality,Calculated 281.8 MOS/KG (273-304); Potassium 4.6 MMOL/L (3.5-5.1)
[2016-04-21] MEDS: INSULIN REGULAR 100 UNIT/ML SUBCUT SCH ×3 (05:38→19:07)
[2016-04-21] MEDS: CEFEPIME 1,000 MG in SODIUM CHLORIDE 0.9% 100 ML IV SCH ×2 (05:38→19:08)
--- NOTE | 2016-04-21 07:12 | Pulmonology Progress Note ---
Pulmonary - PN: Subj Interval history: This 71-year-old lady had seizures and aspiration pneumonia and is on the ventilator. She has a left lower lobe pneumonia. She is on broad-spectrum antibiotics. Neurology is seeing her. Her mental status/seizures will decide when we can get her extubated. 04/16/16 patient still not very responsive. ABGs and chest x-ray look good. We will start CPAP but not ready to extubate. 04/17/2016 patient remains unresponsive. ABGs are pending. Chest x-ray looks good except for minimal left basilar atelectasis. Tolerating CPAP. Not safe to extubate until mental status improves. 04/18/2016 patient remains unresponsive. Tolerating CPAP but not able to manage her airway if extubated. Continue with weaning trials. Hopefully mental status will improve in the next few days otherwise she would need a tracheostomy. 04/19/2016 patient remains unresponsive. Once again tolerated CPAP is okay but not ready for extubation. Mental status will need to improve. Likely she will need a tracheostomy until her mental status improves and possibly long-term. 04/20/2016 patient remains unresponsive. Tolerating CPAP. We should go ahead and consult ENT and plan tracheostomy later this week. 04/21/2016 patient continues to be unresponsive. She has been tolerating CPAP trials but is not able to defend her airway. 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 Tracheostomy is planned for tomorrow. She is to have PEG tube today. She is to have an MRA of her neck to track her aberrant arteries. This is in preparation for the tracheostomy. Transfer to [facility] will wait until after the tracheostomy and be done either Wednesday afternoon or morning. Exam (Progress Note) - Constitutional Vitals: Period Temp Pulse Resp BP Sys/Stahl Pulse Ox Last 24 Hr 97.3 F-98.2 F 80-103 8-30 113-183/48-91 99-100 Exam: Patient is unresponsive. Does not respond to painful stimuli. Vital signs normal. Pupils react to light. Orotracheal tube in place. Neck supple no bruits. Chest shows some rhonchi on the left lower lobe. Heart normal rate rhythm no murmurs. Abdomen soft no masses. Bowel sounds present. Extremities no clubbing cyanosis or edema. Again, little change from yesterday. Results - Labs CBC & BMP: 04/21/16 04:07 04/21/16 04:07 Lab Results: I have reviewed the past 24 hour labs - Diagnostic Findings Procedure: Chest x-ray: image reviewed by me (Minimal left basilar atelectasis. ET tube in good position.) Assessment and Plan (1) Seizure Status: Chronic Assessment and plan: Patient had a recurrent seizure and was intubated. Now all medications for that being followed by neurology. Unclear whether patient has any hypoxic brain injury. Brain CT was okay except for sinusitis. 04/15/2016 continuing seizure medications. Hold sedation and check mental status when neurology is ready. 04/16/16 no further seizures. Decreased level of consciousness. EEG showed evidence of encephalopathy. 04/17/2016 seizures controlled. However patient is not responsive. 04/18/16 no further seizures. 04/19/2016 on anti-seizure medications. 04/20/2016 no further seizures 04/21/2016 she has had no further seizures. Current Visit: No (2) Chronic anticoagulation Status: Acute Assessment and plan: She is on Xarelto for atrial fibrillation. 04/21/2016 Xarelto being held for the PEG tube and tracheostomy. Current Visit: Yes (3) Aspiration into airway Status: Acute Assessment and plan: Likely will develop aspiration pneumonia. I have added cefepime both for that and for sinusitis. Already on Cleocin 04/15/2016 patient on Cleocin and cefepime for sinusitis and left lower lobe pneumonia which is likely aspiration. 04/16/16 continuing empiric antibiotics. Chest x-ray does not look bad. Only minimal left basilar infiltrate. 04/17/2016 on empiric antibiotics. 04/18/2016 continuing antibiotics for aspiration pneumonia. 04/19/2016 chest x-ray is improved. ABGs improved. Continuing antibiotics for now. 04/20/2016 she has improved with empiric treatment. Continue antibiotics. 04/21/2016 chest x-ray improved. Current Visit: Yes Qualifiers: Encounter type: initial encounter Qualified Code(s): T17.908A - Unspecified foreign body in respiratory tract, part unspecified causing other injury, initial encounter (4) Acute respiratory failure Status: Acute Assessment and plan: ABGs look good on current settings. We will not try to wean her until neurologic status is clarified. 04/15/2016 ABGs are pending. Hold weaning until mental status is ready. 04/16/16 ABGs look good. We can start weaning trials but not ready to extubate. 04/17/2016 ABGs pending. Continuing weaning trials. Can extubate until mental status improves. 04/18/2016 continuing weaning trials. Await mental status improvement. 04/19/16 patient tolerating weaning trials but not able to defend her airway. Will continue to check mechanics, but likely will require tracheostomy. 04/20/2016 ABGs pending. Continuing with CPAP trials. Mental status will not allow extubation. She has been 3 days or so without any sedation at all other than seizure meds and she is unresponsive. 04/21/2016 no difficulty ventilating her. She is not able to defend her airway as yet Current Visit: Yes Qualifiers: Respiratory failure complication: unspecified whether with hypoxia or hypercapnia Qualified Code(s): J96.00 - Acute respiratory failure, unspecified whether with hypoxia or hypercapnia
[2016-04-21 07:20] LABS: Pt O2 Delivery Device Ventilator
[2016-04-21 07:21] LABS: ABG Base Excess 0.8 MMOL/L (-2.5-2.5); ABG HCO3 25.1 MMOL/L (20-26); ABG Oxygen Saturation 98.4 % (95-100); ABG PCO2 34.2 MM HG (35-48); ABG PH 7.456 (7.35-7.45)
--- NOTE | 2016-04-21 07:22 | XRay Report ---
Referring Physician: Aashish Cartagena MD Exam: XR chest 1V portable Date: April 21, 2016 at 3:11 AM Reason: Ventilator, respiratory failure Comparison: Chest one view portable April 20, 2016 Findings: An endotracheal tube and feeding tube are again in place. The cardiac silhouette is normal in size. There are mild opacities at the left lung base. This could represent atelectasis, pneumonia or aspiration. There is also minimal atelectasis in the right perihilar region. No pneumothorax is identified, but there is likely minimal left pleural fluid. The osseous structures appear stable. Impression: There are mild opacities at the left lung base. This could represent atelectasis, pneumonia or aspiration. PROCEDURE INTERPRETED AT [facility] DEPARTMENT OF RADIOLOGY Final Report Signed by: Dr. Ross Vallejo
--- NOTE | 2016-04-21 08:28 | Hospitalist Progress Note ---
Assessment and Plan (1) Acute respiratory failure Status: Acute Assessment and plan: Patient intubated for airway safety due to intractable seizure activity. Patient with vomiting and possible aspiration pneumonia. Pulmonary on consult for vent management. Started on clindamycin for anabiotic coverage as well as cefepime Tracheostomy scheduled for tomorrow. Transfer to [facility] Wednesday or . Current Visit: Yes Qualifiers: Respiratory failure complication: unspecified whether with hypoxia or hypercapnia Qualified Code(s): J96.00 - Acute respiratory failure, unspecified whether with hypoxia or hypercapnia (2) Aspiration pneumonitis Status: Acute Assessment and plan: Continue clindamycin and cefepime Current Visit: Yes (3) Seizure Status: Chronic Assessment and plan: Keppra 500 mg IV every 12 hours. EEG with generalized slowing. No evidence of ongoing seizure activity Current Visit: No (4) Medical non-compliance Status: Acute Current Visit: No (5) Diabetes mellitus Status: Chronic Assessment and plan: Sliding scale insulin with Accu-Cheks. Start Glucerna tube feeds per dietary. Current Visit: No Qualifiers: Diabetes mellitus type: type 1 (6) Aspiration into airway Status: Acute Current Visit: Yes Qualifiers: Encounter type: initial encounter Qualified Code(s): T17.908A - Unspecified foreign body in respiratory tract, part unspecified causing other injury, initial encounter Hospitalist: Subjective Interval history: Patient seen and examined. Awaiting tracheostomy and PEG tube placement with eventual transfer to [facility]. No acute events overnight. No acute changes. Pulmonary note reviewed. Exam - Constitutional Vitals: Period Temp Pulse Resp BP Sys/Stahl Pulse Ox Last 24 Hr 97.5 F-98.2 F 80-103 8-30 113-183/48-91 99-100 General appearance: no acute distress - ENT ENT exam: Present: other (ET tube and NG tube in place.) - Respiratory Respiratory exam: Present: clear to auscultation bilaterally - Cardiovascular Cardiovascular exam: Present: regular rate and rhythm - GI/Abdominal GI/Abdominal exam: Present: normal bowel sounds, soft. Absent: tenderness, rebound - Extremities Exam Extremities exam: Absent: edema - Neurological Exam Neurological exam: Present: altered, other (unresponsive.) - Skin Skin exam: Present: normal color, warm, dry Results - Labs CBC & BMP: 04/21/16 04:07 04/21/16 04:07 Lab Results: I have reviewed the past 24 hour labs
--- NOTE | 2016-04-21 09:41 | CT Report ---
History: Preop tracheostomy. Evaluate for carotid artery stenosis and variant arterial anatomy Date: 04/21/2016 Study: CT angiogram of the neck with IV contrast Comparison exam: No previous similar Thin spiral CT sections were obtained through the neck with 80 mL Omnipaque 350 IV contrast. Multiplanar reconstruction images are also evaluated. In addition, 3-D images were generated, archived, and analyzed. Total DLP measures 85 mGy*cm. The CT exam was performed using one or more of the following dose reduction techniques: Automated exposure control and adjustment of the mA and/or kV according to patient size. There is normal arch anatomy. There is no hemodynamically significant stenosis of the origins of the great vessels. There is no significant stenosis of either common carotid artery. There is some mild to moderate eccentric partially calcified plaque in either carotid bulb. There is 17% diameter reduction narrowing of the right internal carotid artery and 30% diameter reduction narrowing of the left internal carotid artery using NASCET criteria. The normal right ICA measures 4.1 mm diameter; the left measures 4.0 mm. The vertebral arteries are both patent. The left vertebral artery is slightly dominant to the right. There is no significant medial deviation of the common or internal carotid arteries. There is no obvious soft tissue mass in the region of interest. There is no rosalia cervical lymphadenopathy. The endotracheal tube is well-positioned with its tip in the trachea superior to the jessy. A nasogastric tube traverses the esophagus. There is moderate cervical spondylosis. Impression: No hemodynamically significant stenosis in the internal carotid arteries where visualized. No major anatomic arterial variation PROCEDURE INTERPRETED AT [facility] DEPARTMENT OF RADIOLOGY Final Report Signed by: Dr. Kari Kiser
[2016-04-21] MEDS: CIPROFLOXACIN INJ 400 MG in PREMIX 1 EACH IV SCH (13:08)
--- NOTE | 2016-04-21 13:12 | Progress Note ---
Assessment and Plan (1) Ventilator dependent Status: Acute Assessment and plan: I will tentatively plan tracheostomy placement on Wednesday we will get a carotid angiogram as her carotid appears near to midline it with possibly a high riding innominate because of neck adiposity it is hard to palpate the exact course of the vasculature so we will obtain the above imaging and evaluate the patient tomorrow. Thank you very much for this consult 04/21/[address] her on the board for tracheostomy placement tomorrow will obtain informed consent we will hold any tube feeds and and anticoagulants at midnight she will be turned over after tracheostomy to pulmonology if they desired to transfer her to [facility] Current Visit: Yes (2) Chronic respiratory failure Status: Acute Current Visit: Yes (3) Hypoxic encephalopathy Status: Acute Current Visit: Yes Family Medicine PN Sub Interval history: I reviewed the CT angiogram to check for any carotid variation of which there is none I will set her up for tracheostomy tomorrow and she may be transferred to [facility] for long-term care when the hospitalist or gas jockey feels she is medically stable Exam (Progress Note) - Constitutional Vitals: Period Temp Pulse Resp BP Sys/Stahl Pulse Ox Last 24 Hr 97.5 F-99.3 F 80-103 8-30 113-183/54-91 99-100 General appearance: over weight, other (Intubated and sedated) - Head Head exam: Present: normal inspection, normocephalic - ENT ENT exam: Present: normal exam, normal external ear exam, normal oropharynx, other (Marked obscured exam secondary to endotracheal and nasal gastric tube placement no gross abnormalities) - Neck Neck exam: Present: normal inspection (Midline trachea with pulsations but no radiographic evidence of arterial variation) - Respiratory Respiratory exam: Present: other (Currently intubated) - Neurological Exam Neurological exam: Present: other (Currently sedated) - Psychiatric Psychiatric exam: Present: other (Unable to assess) - Skin Skin exam: Present: normal color, warm Results - Labs CBC & BMP: 04/21/16 04:07 04/21/16 04:07 Lab Results: I have reviewed the past 24 hour labs - Diagnostic Findings Procedure: CT: pending, image reviewed by me, report reviewed by me (I agree with radiology interpretation)
--- NOTE | 2016-04-21 13:27 | Operative Note ---
Date of procedure: 04/21/16 Pre-op diagnosis: Dysphagia status post anoxic encephalopathy, patient to get a trach tomor. Post-op diagnosis: other Procedure: PROCEDURE: Esophagogastroduodenoscopy (EGD) with percutaneous endoscopic gastrostomy (PEG) tube placement with cold biopsy for pathology REFERRING PHYSICIAN: [Kaitlin Aranda MD] INDICATIONS: [Mild anemia in a patient who has anoxic encephalopathy status post prolonged seizure. She is due to undergo tracheostomy placement tomorrow. ] ENDOSCOPIST: Rajesh Willis MD ENDOSCOPE: Olympus Video 100 System upper endoscope ASA CLASS: [4] EXAM: CV: [Regular rate and rhythm] Respiratory: [Clear to ascultation] Abdominal: [Positive bowel sounds] MEDICATION: As per Anesthesia nursing protocol, see their notes PROCEDURE: After discussion of the potential risks and benefits of upper endoscopy and PEG placement, the informed consent was obtained. The patient was then placed in the left lateral decubitus position where sedation was achieved as noted above. Esophageal intubation was performed without difficulty , and the endoscope was advanced through the esophagus, stomach and duodenum. A slow withdrawal was then performed with retroflexion in the stomach for careful inspection of the incisura angularis, fundus and cardia. The scope was then returned to a neutral position and withdrawn through the esophagus. The patient tolerated the procedure well and without complication. BIOPSIES: [Gastric antrum/body] PHOTOGRAPHS: [Obtained] FINDINGS: Hypopharynx and Larynx: [Endotracheal tube noted with some compressive ulceration/ischemia] Esohagoscopy Upper and middle thirds: [Normal] Lower third [very mild LA class B erosive esophagitis noted at the GE junc 1 cm ] Esophogastric junctions: [No Calvillo's epithelium, mild LA class B erosive esophagitis noted here, no stricturing][] Gastroscopy: Cardia/Fundus: [Very mild patchy gastritis and a 2 cm hiatal hernia] Body: [Mild patchy gastritis, biopsied] Antrum and pylorus [mild patchy gastritis, biopsied][] Duodenoscopy: Bulb [erosive duodenitis on the tips of the folds consistent with ischemic duodenitis] Second and third portions: [Mild patchy duodenitis] PEG Kit/tube size: [Cook 20 Uzbek PEG tube] PEG Placement: After insufflation of the stomach with the prior procedure proper positioning was determined through transillumination and direct pressure with one to one transmission through the abdominal wall. The abdomen was sterilely prepped and draped, injected with 1% lidocaine and a 1 cm incision was cut in the external skin to accommodate the PEG tube. Using standard Ponsky "pull" technique, a catheter was inserted into the stomach (using a fluid filled syringe with back-suction to examine for interposed hollow organs) and a string was advanced into the stomach. This was snared through the scope, pulled through the mouth and tied to the PEG tube. The feeding tube was then pulled down into the stomach and out the abdominal wall, and a hub appropriately placed at the base to provide traction between internal hub and external skin. The tube was trimmed, dressed and a second look with the endoscope used to confirm position and function of the tube. The procedure was tolerated well and without complication. IMPRESSION: [This patient has some LA class B erosive esophagitis at the GE junction, very mild patchy gastritis and a 2 cm hiatal hernia, as well as some erosive duodenitis that appeared to be possibly ischemic. Some of the gastritis and esophagitis may be secondary to previous NG tube which was D/C'd during the procedure.] RECOMMENDATIONS: [Maintain head of bed at 30 degrees Flush the PEG tube with 30 cc of water or saline every 4 hours Obtain (if not done already) nutritional consult to determine optimal feeding rate, continuous vs. bolus, and any hydration requirements necessary. Meds may be crushed and flushed through PEG in 12 hours, followed by 10 ml of water, as per the patient's attending physcian. Feeding though the tube may start at 12 hours with an initial rate of 30 ml/ hour advancing by 10 ml's every four hours until goal rate achieved. Hold tube feeds for residuals greater than 100 ml, checked each shift.] [Can resume previous tube feeds in 12 hours.] Rajesh Willis MD Copy to: [Kaitlin Aranda MD] Anesthesia: MAC Surgeon / Physician: Rajesh Willis Estimated blood loss: minimal Specimens: other (Gastric antrum/body) Condition: stable Disposition: post procedure unit (G.I. Suite) Results - Labs CBC & BMP: 04/21/16 04:07 04/21/16 04:07 Discharge Plan - Discharge Medications No Action Allopurinol 2 tablet PO DAILY Sertraline HCl 25 mg PO DAILY hydrALAZINE TAB [Apresoline Tab] 25 mg PO DAILY Pravastatin [Pravachol] 20 mg PO BEDTIME Rivaroxaban [Xarelto] 20 mg PO DAILY Famotidine 20 mg PO BID Diphenoxylate HCl/Atropine [Diphenoxylate/Atropine 2.5-0.025 mg Tab] 2 tablet PO Q6HR PRN PRN Reason: Diarrhea Ondansetron Odt Tab [Zofran Odt] 4 mg PO Q6HR PRN PRN Reason: Nausea Hum Insulin NPH/Reg Insulin Hm [NovoLIN 70/30] 12 units SUBCUT QAM Hum Insulin NPH/Reg Insulin Hm [NovoLIN 70/30] 5 units SUBCUT AC SUPPER levETIRAcetam TAB [Keppra Tab] 1,000 mg PO BID - Follow Up or Referral - Forms/Instructions
--- NOTE | 2016-04-21 13:37 | Gastrointestinal Progress Note ---
Assessment and Plan (1) Dysphagia Status: Acute Assessment and plan: This is likely due to hypoxic encephalopathy, the patient is not likely to come off the ventilator anytime soon and is about to acquire a tracheostomy which will further inhibit her ability to swallow effectively. We will place a PEG tube tomorrow if family consents and the patient's bedside. Her anticoagulation has been discontinued on Wednesday and she is ready to have this placement done tomorrow. 04/21/16--successful PEG tube placement today, upper endoscopy shows in LA class B erosive esophagitis along with a patchy gastritis, 2 cm hiatal hernia, and erosive ischemic-appearing duodenitis. Biopsies of the stomach are pending. She can certainly restart her tube feeds another 12 hours. Post PEG orders written. Current Visit: Yes (2) Hypoxic encephalopathy Status: Acute Assessment and plan: This is not likely to recover anytime soon therefore PEG tube placement is warranted at this point along with tracheostomy placement given her long-term prognosis. 04/21/16--Patient remains encephalopathic. Current Visit: Yes (3) Chronic respiratory failure Status: Acute Assessment and plan: See above. The risks of the above procedure were discussed with the patient's family and include but are not limited to: Bleeding, infection, perforation, cardiac and pulmonary compromise. Current Visit: Yes Gastroenterology - PN: Subj Interval history: No new complaints. Patient is obtunded and intubated on the ventilator. Exam (Progress Note) - Constitutional Vitals: Period Temp Pulse Resp BP Sys/Stahl Pulse Ox Last 24 Hr 97.5 F-99.3 F 80-103 8-30 113-183/54-91 99-100 General appearance: no acute distress - Head Head exam: Present: normocephalic - Eye Eye exam: Present: EOMI Pupils: Present: TOMAS - Respiratory Respiratory exam: Present: clear to auscultation bilaterally. Absent: rhonchi, stridor, wheezes - Cardiovascular Cardiovascular exam: Present: regular rate and rhythm - GI/Abdominal GI/Abdominal exam: Present: normal bowel sounds, soft. Absent: distended, guarding, tenderness, rebound - Extremities Exam Extremities exam: Present: edema - Neurological Exam Neurological exam: Present: altered (Obtunded) - Psychiatric Psychiatric exam: Present: flat affect - Skin Skin exam: Present: warm Results - Labs CBC & BMP: 04/21/16 04:07 04/21/16 04:07
[2016-04-21] MEDS: hydrALAZINE 25 MG TABLET PO SCH (19:01)
[2016-04-21] MEDS: levETIRAcetam 500 MG TABLET PO SCH ×2 (19:01→21:04)
[2016-04-21] MEDS: SERTRALINE 25 MG TABLET PO SCH (19:02)
[2016-04-21] MEDS: METOPROLOL TARTRATE 25 MG TABLET NG SCH ×2 (19:02→21:04)
[2016-04-21] MEDS: FAMOTIDINE 20 MG TABLET PO SCH ×2 (19:02→21:04)
[2016-04-21] MEDS: ALLOPURINOL 100 MG TABLET PO SCH (19:03)
[2016-04-21] MEDS ORDERED: PROPOFOL 1,000 MG/100 ML BOTTLE IV SCH (23:30)
[2016-04-22] MEDS: CIPROFLOXACIN INJ 400 MG in PREMIX 1 EACH IV SCH ×2 (00:40→11:32)
[2016-04-22] MEDS: INSULIN REGULAR 100 UNIT/ML SUBCUT SCH ×4 (00:41→18:54)
[2016-04-22] MEDS: CLINDAMYCIN INJ 900 MG in PREMIX 1 EACH IV SCH ×3 (02:45→18:54)
[2016-04-22 05:25] LABS: ABG Base Excess 0.3 MMOL/L (-2.5-2.5); ABG HCO3 24.7 MMOL/L (20-26); ABG Oxygen Saturation 98.4 % (95-100); ABG PCO2 31.7 MM HG (35-48); ABG PH 7.471 (7.35-7.45); ABG TCO2 20.3 MMOL/L (23-27); Pt O2 Delivery Device Ventilator
[2016-04-22] MEDS: CEFEPIME 1,000 MG in SODIUM CHLORIDE 0.9% 100 ML IV SCH ×2 (06:23→19:18)
--- NOTE | 2016-04-22 07:05 | Pulmonology Progress Note ---
Pulmonary - PN: Subj Interval history: This 71-year-old lady had seizures and aspiration pneumonia and is on the ventilator. She has a left lower lobe pneumonia. She is on broad-spectrum antibiotics. Neurology is seeing her. Her mental status/seizures will decide when we can get her extubated. 04/16/16 patient still not very responsive. ABGs and chest x-ray look good. We will start CPAP but not ready to extubate. 04/17/2016 patient remains unresponsive. ABGs are pending. Chest x-ray looks good except for minimal left basilar atelectasis. Tolerating CPAP. Not safe to extubate until mental status improves. 04/18/2016 patient remains unresponsive. Tolerating CPAP but not able to manage her airway if extubated. Continue with weaning trials. Hopefully mental status will improve in the next few days otherwise she would need a tracheostomy. 04/19/2016 patient remains unresponsive. Once again tolerated CPAP is okay but not ready for extubation. Mental status will need to improve. Likely she will need a tracheostomy until her mental status improves and possibly long-term. 04/20/2016 patient remains unresponsive. Tolerating CPAP. We should go ahead and consult ENT and plan tracheostomy later this week. 04/21/2016 patient continues to be unresponsive. She has been tolerating CPAP trials but is not able to defend her airway. 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 Tracheostomy is planned for tomorrow. She is to have PEG tube today. She is to have an MRA of her neck to track her aberrant arteries. This is in preparation for the tracheostomy. Transfer to [facility] will wait until after the tracheostomy and be done either Wednesday afternoon or morning. 04/22/2016 patient is for tracheostomy today. Can go to [facility] later this afternoon if procedure is completed early enough. She will flinch a little bit to painful stimulus but otherwise is unresponsive. Exam (Progress Note) - Constitutional Vitals: Period Temp Pulse Resp BP Sys/Stahl Pulse Ox Last 24 Hr 98.1 F-98.7 F 84-122 8-81 101-169/43-100 96-100 Exam: Patient is unresponsive. Does flinch a little to painful stimuli. Vital signs normal. Pupils react to light. Orotracheal tube in place. Neck supple no bruits. Chest shows some rhonchi on the left lower lobe. Heart normal rate rhythm no murmurs. Abdomen soft no masses. Bowel sounds present. Extremities no clubbing cyanosis or edema. Results - Labs CBC & BMP: 04/21/16 04:07 04/21/16 04:07 Lab Results: I have reviewed the past 24 hour labs - Diagnostic Findings Procedure: Chest x-ray: image reviewed by me (Lungs essentially clear. Minimal left basilar atelectasis. ET tube good position.) Assessment and Plan (1) Seizure Status: Chronic Assessment and plan: Patient had a recurrent seizure and was intubated. Now all medications for that being followed by neurology. Unclear whether patient has any hypoxic brain injury. Brain CT was okay except for sinusitis. 04/15/2016 continuing seizure medications. Hold sedation and check mental status when neurology is ready. 04/16/16 no further seizures. Decreased level of consciousness. EEG showed evidence of encephalopathy. 04/17/2016 seizures controlled. However patient is not responsive. 04/18/16 no further seizures. 04/19/2016 on anti-seizure medications. 04/20/2016 no further seizures 04/21/2016 she has had no further seizures. 04/22/2016 no further seizures. Current Visit: No (2) Chronic anticoagulation Status: Acute Assessment and plan: She is on Xarelto for atrial fibrillation. 04/21/2016 Xarelto being held for the PEG tube and tracheostomy. 04/22/2016 Xarelto held. Current Visit: Yes (3) Aspiration into airway Status: Acute Assessment and plan: Likely will develop aspiration pneumonia. I have added cefepime both for that and for sinusitis. Already on Cleocin 04/15/2016 patient on Cleocin and cefepime for sinusitis and left lower lobe pneumonia which is likely aspiration. 04/16/16 continuing empiric antibiotics. Chest x-ray does not look bad. Only minimal left basilar infiltrate. 04/17/2016 on empiric antibiotics. 04/18/2016 continuing antibiotics for aspiration pneumonia. 04/19/2016 chest x-ray is improved. ABGs improved. Continuing antibiotics for now. 04/20/2016 she has improved with empiric treatment. Continue antibiotics. 04/21/2016 chest x-ray improved. 04/22/2016 chest x-ray is improved. She is on empiric antibiotics. Current Visit: Yes Qualifiers: Encounter type: initial encounter Qualified Code(s): T17.908A - Unspecified foreign body in respiratory tract, part unspecified causing other injury, initial encounter (4) Acute respiratory failure Status: Acute Assessment and plan: ABGs look good on current settings. We will not try to wean her until neurologic status is clarified. 04/15/2016 ABGs are pending. Hold weaning until mental status is ready. 04/16/16 ABGs look good. We can start weaning trials but not ready to extubate. 04/17/2016 ABGs pending. Continuing weaning trials. Can extubate until mental status improves. 04/18/2016 continuing weaning trials. Await mental status improvement. 04/19/16 patient tolerating weaning trials but not able to defend her airway. Will continue to check mechanics, but likely will require tracheostomy. 04/20/2016 ABGs pending. Continuing with CPAP trials. Mental status will not allow extubation. She has been 3 days or so without any sedation at all other than seizure meds and she is unresponsive. 04/21/2016 no difficulty ventilating her. She is not able to defend her airway as yet 04/22/2016 ABGs look good. She is tolerating CPAP but has very poor mechanics. Not able to defend her airway. She is getting a tracheostomy today to assist in weaning her. Hopefully mental status will improve over time Current Visit: Yes Qualifiers: Respiratory failure complication: unspecified whether with hypoxia or hypercapnia Qualified Code(s): J96.00 - Acute respiratory failure, unspecified whether with hypoxia or hypercapnia
[2016-04-22 07:38] LABS: Basophils % 0.1 % (0.0-0.8); Eosinophils # 0.3 10*3/uL (0.0-0.87); Eosinophils % 1.3 % (0.00-10.9); Hematocrit 37.1 VOL% (35.7-47.0); Hemoglobin 12.1 GM/DL (12.0-16.0); Immature Granulocytes % 2.9 %; Lymphocytes % 19.1 % (21.3-54.2); Mean Corpuscular HGB Conc 32.6 GM/DL (32-36); Mean Corpuscular Hemoglobin 28 PG (27-34); Mean Corpuscular Volume 85.7 FL (87-102); Monocytes # 1.8 10*3/uL (0.11-0.8); Monocytes % 8.7 % (1.7-12.7); Neutrophils # 14.2 10*3/uL (1.4-7.4); Neutrophils % 67.9 % (38.7-73.9); Platelet Count 320 T/CUMM (130-400); Red Blood Count 4.33 MC/CUMM (3.8-5.5); Red Cell Distribution Width 15.9 % (9.3-17.3); White Blood Count 20.9 T/CUMM (4-12)
[2016-04-22 07:58] LABS: Band Neutrophils 1 % (0-10); Eosinophils 2 % (0-10); Hypochromasia 1+; Lymphocytes 17 % (20-55); Platelet Estimate Adequate; Segmented Neutrophils 72 % (50-85); Total Cells Counted 100
[2016-04-22 08:09] LABS: Calcium 8.8 MG/DL (8.5-10.1); Magnesium 2.4 MG/DL (1.8-2.4); Osmolality,Calculated 288.7 MOS/KG (273-304); Potassium 4.5 MMOL/L (3.5-5.1)
--- NOTE | 2016-04-22 08:09 | XRay Report ---
History: Patient on ventilator Date: 04/22/2016 Study: Chest x-ray AP portable Comparison exam: Chest x-ray 04/21/2016 The endotracheal tube is well positioned. The nasogastric tube has been removed. The cardiomediastinal silhouette is unchanged. The pulmonary vasculature is not engorged. There are some minor atelectatic changes in the lower lungs, slightly improved on the left. There is no new or worsening process. There is no pneumothorax or increasing pleural effusion. Osseous structures are unchanged. Impression: Persistent but improving bibasilar atelectasis. Interval nasogastric tube removal PROCEDURE INTERPRETED AT [facility] DEPARTMENT OF RADIOLOGY Final Report Signed by: Dr. Kari Kiser
[2016-04-22] MEDS: FAMOTIDINE 20 MG TABLET PO SCH (08:17)
[2016-04-22] MEDS: METOPROLOL TARTRATE 25 MG TABLET NG SCH ×2 (08:17→21:08)
[2016-04-22] MEDS: hydrALAZINE 25 MG TABLET PO SCH (08:17)
[2016-04-22] MEDS: SERTRALINE 25 MG TABLET PO SCH (08:17)
[2016-04-22] MEDS: levETIRAcetam 500 MG TABLET PO SCH ×2 (08:17→21:07)
[2016-04-22] MEDS: ALLOPURINOL 100 MG TABLET PO SCH (08:17)
--- NOTE | 2016-04-22 11:02 | Hospitalist Progress Note ---
Assessment and Plan (1) Acute respiratory failure Status: Acute Assessment and plan: Patient intubated for airway safety due to intractable seizure activity. Patient with vomiting and possible aspiration pneumonia. Pulmonary on consult for vent management. Started on clindamycin for anabiotic coverage as well as cefepime Tracheostomy scheduled for today. Transfer to [facility] Wednesday or . Current Visit: Yes Qualifiers: Respiratory failure complication: unspecified whether with hypoxia or hypercapnia Qualified Code(s): J96.00 - Acute respiratory failure, unspecified whether with hypoxia or hypercapnia (2) Aspiration pneumonitis Status: Acute Assessment and plan: Continue clindamycin and cefepime Current Visit: Yes (3) Seizure Status: Chronic Assessment and plan: Keppra 500 mg IV every 12 hours. EEG with generalized slowing. No evidence of ongoing seizure activity Current Visit: No (4) Medical non-compliance Status: Acute Current Visit: No (5) Diabetes mellitus Status: Chronic Assessment and plan: Sliding scale insulin with Accu-Cheks. Start Glucerna tube feeds per dietary. Current Visit: No Qualifiers: Diabetes mellitus type: type 1 (6) Aspiration into airway Status: Acute Current Visit: Yes Qualifiers: Encounter type: initial encounter Qualified Code(s): T17.908A - Unspecified foreign body in respiratory tract, part unspecified causing other injury, initial encounter Hospitalist: Subjective Interval history: Patient seen and examined. No acute events overnight. PEG tube placed yesterday. Trach planned for today. Exam - Constitutional Vitals: Period Temp Pulse Resp BP Sys/Stahl Pulse Ox Last 24 Hr 97.8 F-98.7 F 73-122 8-81 93-169/43-82 96-100 General appearance: no acute distress - Head Head exam: Present: normal inspection - Respiratory Respiratory exam: Present: clear to auscultation bilaterally - Cardiovascular Cardiovascular exam: Present: regular rate and rhythm - GI/Abdominal GI/Abdominal exam: Present: normal bowel sounds, soft. Absent: tenderness, rebound - Extremities Exam Extremities exam: Absent: edema - Neurological Exam Neurological exam: Present: other (remains unresponsive) - Skin Skin exam: Present: normal color, warm, dry Results - Labs CBC & BMP: 04/22/16 07:33 04/22/16 07:33 Lab Results: I have reviewed the past 24 hour labs
[2016-04-22] MEDS ORDERED: LIDOCAINE 2%/EPI 20 ML VIAL ONE (12:16)
--- NOTE | 2016-04-22 12:24 | Pathology Report from [facility] ---
ACCESSION # : [id number] PATIENT NAME : Luis Dhaliwal ORDERING DR : Rajesh Willis MD CLINICAL HX: Aspriation POST-OP DX: Same SPECIMEN INFO: JAMISON GROSS DESCRIPTION: The specimen is received in formalin labeled with the patient 's name and consists of fragments of pink-cox tissue measuring in aggregate 0.8 x 0.5 cm. Submitted in one cassette. DIAGNOSIS FOR LUIS DHALIWAL: JAMSION BIOPSIES: Chronic superficial gastritis. H. pylori not seen on special stain. SERVICE DATE: 04/21/2016 REPORT DATE: 04/22/2016 PATHOLOGIST: Jovani Galarza M.D. [facility]
[2016-04-22] MEDS ORDERED: VECURONIUM 10 MG VIAL IV ONE (12:35)
[2016-04-22] MEDS ORDERED: SEVOFLURANE 1 UNIT/15 MINUTE INH ONE (13:18)
[2016-04-22] MEDS ORDERED: MIDAZOLAM 2 MG/2 ML VIAL ONE (13:19)
[2016-04-22] MEDS ORDERED: fentaNYL 100 MCG/2 ML VIAL ONE (13:19)
--- NOTE | 2016-04-22 13:59 | Gastrointestinal Progress Note ---
Assessment and Plan (1) Dysphagia Status: Acute Assessment and plan: This is likely due to hypoxic encephalopathy, the patient is not likely to come off the ventilator anytime soon and is about to acquire a tracheostomy which will further inhibit her ability to swallow effectively. We will place a PEG tube tomorrow if family consents and the patient's bedside. Her anticoagulation has been discontinued on Wednesday and she is ready to have this placement done tomorrow. 04/21/16--successful PEG tube placement today, upper endoscopy shows in LA class B erosive esophagitis along with a patchy gastritis, 2 cm hiatal hernia, and erosive ischemic-appearing duodenitis. Biopsies of the stomach are pending. She can certainly restart her tube feeds another 12 hours. Post PEG orders written. 04/22/16--patient continues to have a mild amount of anemia with her LA class B esophagitis and patchy gastritis, biopsies are still pending. She was able to tolerate her tube feeds well. I will sign off the case at this time, dietitian to continue feeds at an appropriate rate. Please do not hesitate to reconsult me if I can be of further help. Would suggest use proton pump inhibitors at least once daily. Current Visit: Yes (2) Hypoxic encephalopathy Status: Acute Assessment and plan: This is not likely to recover anytime soon therefore PEG tube placement is warranted at this point along with tracheostomy placement given her long-term prognosis. 04/21/16--Patient remains encephalopathic. 04/22/16--patient remains encephalopathic. Current Visit: Yes (3) Chronic respiratory failure Status: Acute Assessment and plan: See above. The risks of the above procedure were discussed with the patient's family and include but are not limited to: Bleeding, infection, perforation, cardiac and pulmonary compromise. Current Visit: Yes Gastroenterology - PN: Subj Interval history: The patient seems to have her trach in place now--she is tolerating her tube feeds with no residuals according to nursing staff at the bedside. Hematocrit and white count seems stable as well. Exam (Progress Note) - Constitutional Vitals: Period Temp Pulse Resp BP Sys/Stahl Pulse Ox Last 24 Hr 97.0 F-98.7 F 73-122 8-81 93-169/43-82 96-100 General appearance: no acute distress - Respiratory Respiratory exam: Present: clear to auscultation bilaterally. Absent: rhonchi, stridor, wheezes - Cardiovascular Cardiovascular exam: Present: regular rate and rhythm - GI/Abdominal GI/Abdominal exam: Present: normal bowel sounds, soft, other (PEG tube spends well there is no erythema at the puncture site, no drainage). Absent: distended , tenderness, rebound - Extremities Exam Extremities exam: Absent: edema - Neurological Exam Neurological exam: Present: altered (Patient remains obtunded) - Psychiatric Psychiatric exam: Present: flat affect - Skin Skin exam: Present: warm Results - Labs CBC & BMP: 04/22/16 07:33 04/22/16 07:33
--- NOTE | 2016-04-22 14:54 | Discharge Summary ---
Hospital Course - Hospital Course Hospital Course: 71-year-old female admitted to the hospitalist service to the intensive care unit with respiratory failure and status epilepticus requiring intubation. Patient is here to have had a anoxic brain injury and has not been able to regain neurologic function. She remains ventilator dependent for airway protection. a PEG tube has been placed for nutrition and medication administration. The tracheostomy was placed today. The patient has been treated for aspiration pneumonitis related to her initial seizure activity and respiratory failure. She is on IV antibiotics. She was followed by Dr. Cartagena during the course of the hospitalization for ventilator management and pneumonia treatment. She has been accepted to [facility] and is being transferred there today. She remains a full code despite her devastating neurologic condition at the patient's family's request. Her anticoagulation had been stopped in anticipation of PEG tube placement and tracheostomy. It should be resumed once cleared with ENT. Patient does make spontaneous movements but none are purposeful and she does not follow commands. She has not woken up during the course of this hospitalization- lasting 8 days. - Time spent with patient Time with patient DS: Greater than 30 minutes Diagnosis - Discharge Diagnosis (1) Acute respiratory failure Status: Acute (2) Aspiration pneumonitis Status: Acute (3) Seizure Status: Chronic (4) Medical non-compliance Status: Chronic (5) Diabetes mellitus Status: Chronic (6) Aspiration into airway Status: Acute (7) Anoxic brain injury Status: Acute Discharge Plan - Discharge Data Disposition: Disch/Xfer-Ipshort Term Hos Condition at Discharge: Guarded Discharge Diet: other (tube feeds) Hygiene: no restrictions - Discharge Medications New Cefepime [Maxipime] 1,000 mg IV Q12H vial Ciprofloxacin Inj [Cipro Inj] 400 mg IV Q12H Clindamycin Inj [Cleocin Inj] 900 mg IV Q8H Docusate Sodium Cap [Colace Cap] 100 mg PO BID PRN #0 capsule PRN Reason: Constipation Glucagon 1 mg IM PRN PRN #0 vial PRN Reason: Hypoglycemia w/o IV access Insulin Regular [HumuLIN R] See Protocol SUBCUT Q6HR unit Lactulose Liquid [Chronulac] 20 gm PO Q4H PRN #0 PRN Reason: Constipation Ondansetron Inj [Zofran Inj] 4 mg IV Q4H PRN #0 vial PRN Reason: Nausea levETIRAcetam TAB [Keppra Tab] 500 mg PO BID tablet Dextrose 50% [D50] 25 gm IV PRN PRN #0 vial PRN Reason: Hypoglycemia with IV access Metoprolol Tartrate Tab [Lopressor Tab] 25 mg NG BID tablet Continue Allopurinol 2 tablet PO DAILY Sertraline HCl 25 mg PO DAILY hydrALAZINE TAB [Apresoline Tab] 25 mg PO DAILY Pravastatin [Pravachol] 20 mg PO BEDTIME Rivaroxaban [Xarelto] 20 mg PO DAILY Famotidine 20 mg PO BID Diphenoxylate HCl/Atropine [Diphenoxylate/Atropine 2.5-0.025 mg Tab] 2 tablet PO Q6HR PRN PRN Reason: Diarrhea Ondansetron Odt Tab [Zofran Odt] 4 mg PO Q6HR PRN PRN Reason: Nausea Hum Insulin NPH/Reg Insulin Hm [NovoLIN 70/30] 12 units SUBCUT QAM Hum Insulin NPH/Reg Insulin Hm [NovoLIN 70/30] 5 units SUBCUT AC SUPPER levETIRAcetam TAB [Keppra Tab] 1,000 mg PO BID - Follow Up or Referral Follow Up: Aashish Cartagena MD [Physician] - Juliano Lundberg DO [Physician] - Juvencio Cummings MD [Physician] - - Forms/Instructions Additional Discharge Instructions: please check with ENT before continuing anticoagulation. Patient had tracheostomy placed 04/22/2016. Exam - Constitutional Vitals: Period Temp Pulse Resp BP Sys/Stahl Pulse Ox Last 24 Hr 97.0 F-98.7 F 73-122 8-81 93-169/43-82 96-100 Discharge Results Procedures and tests throughout hospitalization: Pending Orders 04/23/16 04:00 Magnesium MOTH Phosphorous MOTH Prealbumin MOTH Labs on day of discharge: Labs from last 24 hours 04/22/16 04/22/16 04/22/16 12:00 11:05 07:33 WBC RBC Hgb Hct MCV MCH MCHC RDW Plt Count MPV Neut % (Auto) Lymph % (Auto) [place] % (Auto) Eos % (Auto) Baso % (Auto) Neut # (Auto) Lymph # (Auto) [place] # (Auto) Eos # (Auto) Baso # (Auto) Total Counted Immature Gran % Nucleated RBC % Immature Gran # Segmented Neutrophils Band Neutrophils Lymphocytes Monocytes Eosinophils Nucleated RBCs # Platelet Estimate Hypochromasia Morphology Comment ABG pH ABG pCO2 ABG pO2 ABG HCO3 ABG Total CO2 ABG O2 Saturation ABG Base Excess FiO2 Sodium 138 Potassium 4.5 Chloride 104 Carbon Dioxide 23 Anion Gap 15.5 H BUN 24 H Creatinine 1.00 GFR Calculation 74 BUN/Creatinine Ratio 24.00 H Glucose 282 H POC Glucose 268 H 322 H Calculated Osmolality 288.7 Calcium 8.8 Magnesium 2.4 04/22/16 04/22/16 04/22/16 07:33 06:00 05:00 WBC 20.9 H RBC 4.33 Hgb 12.1 Hct 37.1 MCV 85.7 L MCH 28 MCHC 32.6 RDW 15.9 Plt Count 320 MPV 11.0 Neut % (Auto) 67.9 Lymph % (Auto) 19.[address] [place] % (Auto) 8.7 Eos % (Auto) 1.3 Baso % (Auto) 0.1 Neut # (Auto) 14.2 H Lymph # (Auto) 4.0 [place] # (Auto) 1.8 H Eos # (Auto) 0.3 Baso # (Auto) 0.0 Total Counted 100 Immature Gran % 2.9 Nucleated RBC % 0.0 Immature Gran # 0.60 Segmented Neutrophils 72 Band Neutrophils 1 Lymphocytes 17 L Monocytes 8 Eosinophils 2 Nucleated RBCs # 0.00 Platelet Estimate Adequate Hypochromasia 1+ Morphology Comment ABG pH 7.471 H ABG pCO2 31.7 L ABG pO2 107.0 H ABG HCO3 24.7 ABG Total CO2 20.3 L ABG O2 Saturation 98.4 ABG Base Excess 0.3 FiO2 28.00 Sodium Potassium Chloride Carbon Dioxide Anion Gap BUN Creatinine GFR Calculation BUN/Creatinine Ratio Glucose POC Glucose 238 H Calculated Osmolality Calcium Magnesium 04/22/16 04/21/16 00:30 17:46 WBC RBC Hgb Hct MCV MCH MCHC RDW Plt Count MPV Neut % (Auto) Lymph % (Auto) [place] % (Auto) Eos % (Auto) Baso % (Auto) Neut # (Auto) Lymph # (Auto) [place] # (Auto) Eos # (Auto) Baso # (Auto) Total Counted Immature Gran % Nucleated RBC % Immature Gran # Segmented Neutrophils Band Neutrophils Lymphocytes Monocytes Eosinophils Nucleated RBCs # Platelet Estimate Hypochromasia Morphology Comment ABG pH ABG pCO2 ABG pO2 ABG HCO3 ABG Total CO2 ABG O2 Saturation ABG Base Excess FiO2 Sodium Potassium Chloride Carbon Dioxide Anion Gap BUN Creatinine GFR Calculation BUN/Creatinine Ratio Glucose POC Glucose 198 H 266 H Calculated Osmolality Calcium Magnesium DS: Provider Date of admission: 04/14/16 09:36 Primary care physician: . No PCP Attending physician on admission: Kaitlin Aranda MD Consults: 04/15/16 16:55 Consult to Dietitian [CONS] Routine Reason for Dietitian: TF-Initiate/Manage 04/17/16 11:35 Consult to Physician [CONS] Routine Comment: gi medical information officer for peg placement Consulting Provider: Person Notified: Jennifer Date Notified: 04/20/16 Time Notified: 08:40 04/18/16 11:09 Consult to Case Mgmt/Social Srvs [CONS] Routine Reason for Case Mgmt/Social Srvs: LTAC Consult Comment: may need trach and peg 04/20/16 07:26 Consult to Physician [CONS] Routine Comment: Needs tracheostomy Consulting Provider: Juliano Lundberg Consult to Specialist Group: ENT When should Consulting Provider be notified: Samir Person Notified: Nirali Date Notified: 04/20/16 Time Notified: 08:07 04/21/16 13:42 Consult to Dietitian [CONS] Routine Reason for Dietitian: TF-Initiate/Manage Consult Comment: Tube feeding recommendations Discharging clinician: Kaitlin Aranda MD Expected date of discharge: 04/22/16
--- NOTE | 2016-04-22 16:57 | Anesthesia ---
Anesthesia Post OP - Post Ansesthetic Evaluation Patient seen in post op: Yes Resp: within normal limits CV: within normal limits Mental: within normal limits Temp: within normal limits [id number]: within normal limits Nausea and Vomiting: within normal limits Pain: within normal limits
[2016-04-22] MEDS ORDERED: LANSOPRAZOLE ODT 30 MG TABLET PO SCH (21:00)
[2016-04-22] MEDS ORDERED: LANSOPRAZOLE ODT 30 MG TABLET PEG SCH (21:00)
[2016-04-22 23:20] VITALS: BP 170/78
== END 2016-04-22 23:10 | DRG 100 ==
LOC: EDBD → EDUNIT# → N.ED 08:22 → N.EDINP 09:36 → MERGE 09:36 → N.CC 12:28
PROVIDERS: ADMIT Family Medicine; ATTEND Family Medicine
PROC: EGDWPEG (ICD-10-PCS; 2016-04-21 09:05)

== ENCOUNTER 2016-07-03 11:46 | Inpatient (IN) ==
[2016-07-03] MEDS ORDERED: SODIUM CHLORIDE 0.9% 500 ML IV STA (12:48)
[2016-07-03] MEDS ORDERED: LEVOFLOXACIN INJ 750 MG in PREMIX 1 EACH IV STA (12:48)
[2016-07-03] MEDS ORDERED: ACETAMINOPHEN 500 MG TABLET PO STA (12:48)
[2016-07-03] MEDS ORDERED: ALBUTEROL/IPRATROPIUM 3 ML NEB RESP TX STA (12:48)
--- NOTE | 2016-07-03 12:48 | Emergency Department Note ---
Radha Griffith [place], am scribing for, and in the presence of, Dewayne Sullivan MD 12:47. Nate Griffith Charles R, MD, personally performed the services described in this documentation, ascribed by Fanny Garcia in my presence, and it is both accurate and complete . Arrival - Arrival Chief Complaint: Fever ED Nursing Triage Note: pt was dx with a uti at the [facility] and has a fever and alt loc. pt did vomit twice last night Mode of Arrival: Stretcher Limitations: Altered Mental Status Source: RN Notes Reviewed Time Seen by Provider: 07/03/16 12:23 - History of Present Illness HPI Narrative: This is a 71 y/o black female presenting to the ED with c/o altered mental status from the correction. Pt was recently diagnosed with a UTI per the correction staff. Pt has a fever and altered LOC. According to the nurse, the pt did vomit twice last night. It is possible the pt could have aspirated while vomiting last night. Pt is nonverbal and not alert to stimuli. Her PMHx is consistent with HTN, depression, diabetes, and seizures. Consistency: constant Severity: moderate Allergies/Adverse Reactions: Allergies Allergy/AdvReac Type Severity Reaction Status Date / Time No Known Allergies Allergy Verified 04/14/16 08:32 Home Medications: Home Medications Medication Instructions Recorded Confirmed Type Allopurinol 100 mg PEG DAILY 04/11/16 07/03/16 History Glucagon 1 mg IM PRN PRN #0 vial 04/22/16 07/03/16 Rx Acetaminophen Tab [Tylenol Tab] 650 mg PEG Q6H PRN MDD 3GM/24H 07/03/16 History Ascorbic Acid Tab [Vitamin C Tab] 500 mg PEG DAILY 07/03/16 07/03/16 History Insulin Glargine [Lantus] 24 unit SUBCUT BEDTIME 07/03/16 07/03/16 History Insulin Regular [HumuLIN R] See Protocol SUBCUT ACHS 07/03/16 07/03/16 History Menthol/Zinc Oxide Oint 1 applic TOP QID PRN 07/03/16 07/03/16 History [Calmoseptine Oint] Metoprolol Tartrate Tab [Lopressor 50 mg PEG BID 07/03/16 07/03/16 History Tab] Multivitamin [Multivitamins] 1 each PEG DAILY 07/03/16 07/03/16 History Ranitidine Liquid [Zantac Syrup] 150 mg PEG BID 07/03/16 07/03/16 History hydrALAZINE TAB [Apresoline Tab] 50 mg PEG TID 07/03/16 07/03/16 History levETIRAcetam LIQUID [Keppra 500 mg PEG BID 07/03/16 07/03/16 History Liquid] Review of System - Review of System ROS unobtainable: due to mental status (limitied ) - Review of System Constitutional: Present: fever (100.4). Absent: weakness Gastrointestinal: Present: nausea, vomiting (twice last night ) Skin: Absent: rash Allergic/Immunologic: Absent: facial swelling Medical,Surgical,& Family Hx - Medical History Cardio: History of: Hypertension Psychological: History of: Depression Neurology: History of: Seizures Endocrine: History of: Diabetes Mellitus (IDDM) - Surgical History Thoracic Surgeries: Patient denies;: Organ Transplant Neurologic Surgeries: Patient denies: Neurologic Surgery Orthopedic Surgeries: Patient denies;: Total Knee Replacement - Social History Smoking Status: Unknown if ever smoked Frequency of Alcohol Use: None Type of Drug Use: None Exam Vital Signs: Vital Signs Temperature 100.4 F H 07/03/16 11:54 Pulse Rate 84 07/03/16 13:20 Respiratory Rate 27 H 07/03/16 13:20 Blood Pressure 146/63 07/03/16 11:54 O2 Sat by Pulse Oximetry 99 07/03/16 13:20 - General Exam limited due to: other (AMS ) General appearance: in no apparent distress - Head Head exam: Present: atraumatic, normocephalic, normal inspection - Eye Eye exam: Present: PERRL, EOMI. Absent: normal appearance (wandering eyes ) - ENT ENT exam: Present: normal exam, normal oropharynx, mucous membranes moist, TM's normal bilaterally, normal external ear exam - Neck Neck exam: Present: normal inspection, full ROM, trachea midline. Absent: tenderness - Chest Chest inspection: Present: normal inspection, symmetric chest wall rise. Absent : tenderness - Respiratory Respiratory exam: Present: rhonchi (bilaterally ), other (gurgling sounds in chest ). Absent: normal lung sounds bilaterally - Cardiovascular Cardiovascular exam: Present: regular rate, normal rhythm, normal heart sounds - Abdominal Exam Abdominal exam: Present: soft, normal bowel sounds. Absent: distention, tenderness - Extremities Exam Extremities exam: Present: normal capillary refill, other (cupitus non healing wounds to right lower extremity ). Absent: normal inspection, full ROM, tenderness, pedal edema, calf tenderness - Back Exam Back exam: Present: normal inspection, full ROM. Absent: tenderness - Neurological Exam Neurological exam: Present: CN II-XII intact. Absent: alert, oriented X3, normal gait, reflexes normal - Expanded Neurological Exam Speech: Present: total aphasia Coma Scale Eye Opening: None Coma Scale Motor Response: Withdraws to Pain Coma Scale Verbal Response: None Coma Scale Total: 6 - Psychiatric Psychiatric exam: Present: normal affect, normal mood - Skin Skin exam: Present: warm, dry, intact, normal color. Absent: rash, diaphoresis Course Course Narrative: Decision to intubate patient because a [place] Coma Scale was less than 8 she septic significant for decreased level of consciousness, patient was successfully intubated using fiberoptic scope. Patient was septic and possibly stroke - Consultations Consultation #1: Hospitalist will admit patient Time: 14:31 Procedures - Intubation sedative: Etomidate paralytic: Vecuronium Mg Given: 10 Laryngoscope: fiber optic video scope ET Tube Size: 7.5 ET Tube Uncuffed: No Tube Secured Depth (cm): 22 Tube Secured Location: lips Tube Placement Confirmation: visualized tube passing through cords, equal breath sounds bilaterally, confirmation detector color change Patient Tolerated Procedure: well, no complications Intubation Complications: none Results - Labs CBC & BMP: 07/03/16 13:18 07/03/16 13:18 Lab Results: I have reviewed the patients labs Critical Care Time Critical Care Time: Yes Total Critical Care Time: 90 Disposition Clinical Impression: Sepsis, Seizure, Aspiration pneumonitis, Leukocytosis, Fever, Altered mental status, Decreased level of consciousness, UTI (urinary tract infection) Case discussed with: patient's physician Disposition: Still a Patient Condition: Critical Time of Disposition: 14:31
--- NOTE | 2016-07-03 13:07 | XRay Report ---
Portable chest Date: 07/03/2016 Clinical history: Shortness of breath, fever Comparison: 05/18/2016 Technique: Portable AP sitting chest Findings: There is minimally enlarged with uncoiling of the aorta. Limited expiratory chest with progressive diffuse parenchymal findings essentially at the lung bases. Stable mediastinum with degenerative changes. Impression: Limited expiratory chest with progressive atelectasis/infiltration at the lung bases. PROCEDURE INTERPRETED AT [facility] DEPARTMENT OF RADIOLOGY Final Report Signed by: Dr. Jackelyn Whitney
[2016-07-03 13:31] LABS: Basophils # 0.1 10*3/uL (0.0-0.2); Basophils % 0.2 % (0.0-0.8); Hematocrit 33.5 VOL% (35.7-47.0); Hemoglobin 10.9 GM/DL (12.0-16.0); Immature Granulocytes % 1.1 %; Immature Granulocytes Absolute 0.32 #; Lymphocytes # 3.6 10*3/uL (1.4-4.0); Mean Corpuscular HGB Conc 32.5 GM/DL (32-36); Mean Corpuscular Hemoglobin 29 PG (27-34); Mean Corpuscular Volume 87.7 FL (87-102); Mean Platelet Volume 10.8 FL (9.6-12.0); Monocytes # 1.5 10*3/uL (0.11-0.8); Neutrophils # 24.4 10*3/uL (1.4-7.4); Neutrophils % 81.7 % (38.7-73.9); Platelet Count 437 T/CUMM (130-400); Red Blood Count 3.82 MC/CUMM (3.8-5.5); Red Cell Distribution Width 15.3 % (9.3-17.3); White Blood Count 29.8 T/CUMM (4-12)
[2016-07-03 13:44] LABS: INR 1.2; PT Patient Result 12.4 SECS
[2016-07-03 13:52] LABS: Alanine Aminotransferase 9 U/L (13-56); Albumin 2.2 G/DL (3.4-5.0); Alkaline Phosphatase 129 U/L (45-117); Amylase 186 U/L (25-115); Aspartate Amino Transferase 16 U/L (0-37); Bilirubin,Total < 0.39 MG/DL (0.2-1.0); Blood Urea Nitrogen 33 MG/DL (7-18); Calcium 8.6 MG/DL (8.5-10.1); Glucose 171 MG/DL (74-106); Lactic Acid 2.3 MMOL/L (0.4-2.0); Osmolality,Calculated 283.8 MOS/KG (273-304); Potassium 4.9 MMOL/L (3.5-5.1); Sodium 137 MMOL/L (136-145); Total Protein 6.9 G/DL (6.4-8.3)
[2016-07-03 13:57] LABS: Band Neutrophils 7 % (0-10); Hypochromasia Slight; Lymphocytes 8 % (20-55); Microcytosis 1+; Myelocytes 1 %; Platelet Estimate Adequate; Segmented Neutrophils 79 % (50-85); Total Cells Counted 100
[2016-07-03 14:43] LABS: Apearance,Urine CLOUDY (Clear); Bacteria,Urine Moderate /HPF (Few); Bilirubin,Urine Negative (Negative); Blood, Urine Negative (Negative); Glucose,Urine (UA) Negative (Negative); Ketones,Urine Negative (Negative); Mucus,Urine Occasional /LPF (Occasional); Nitrite,Urine Negative (Negative); Protein,Urine Negative; RBC,Urine 44 /HPF (0-4); Squamous Epithelial Cell,Urine Occasional /HPF (0-10); Urine Color Yellow (Yellow); Urine Specific Gravity 1.012 (1.001-1.035); Urine Urobilinogen < 2.0 EU/DL (0.2-1.0); WBC,Urine 53 /HPF (0-6)
[2016-07-03 14:59] LABS: Sedimentation Rate-Westergren 97 MM/HR (0-30)
--- NOTE | 2016-07-03 15:15 | CT Report ---
CT head/brain wo con Indication: Decreased level of consciousness. Comparison: Head CT 04/14/2016 Technique: CT of the brain was performed without administration of intravenous contrast. The CT examination was performed using one or more of the following dose reduction techniques: Automatic exposure control, adjustment of the mA and kV according to patient size, use of acute or iterative reconstruction techniques. Findings: Low-attenuation extending from the right frontal cortex through the white matter within the mid to posterior aspect of the right frontal lobe is demonstrated that's not clearly visualized on the comparison image. This possibly represents volume averaging of the central sulcus, there is no evidence of acute intracranial hemorrhage. Generalized atrophy remains present. Motion blurs the brain. Areas of diminished white matter attenuation within the periventricular white matter compatible with microvascular ischemia. The basal cisterns are patent. No significant abnormality is demonstrated to involve the posterior fossa or cerebellum. Orbits and globes demonstrate no evidence of significant pathology. The paranasal sinuses are clear. No significant abnormality is demonstrated to involve the mastoid air cells. The calvarium and overlying soft tissues demonstrate no evidence of acute pathology. Impression: 1. Low attenuation within the cortex and white matter of the right frontal lobe could reflect subacute ischemia, volume averaging of the central sulcus, and/or motion artifact. MRI brain without intravenous contrast administration is recommended for further evaluation. 2. Otherwise stable appearance of generalized atrophy and findings compatible with microvascular ischemia. 07/03/2016 3:10 PM PROCEDURE INTERPRETED AT [facility] DEPARTMENT OF RADIOLOGY Final Report Signed by: Dr. Lux Toscano
[2016-07-03] MEDS ORDERED: ETOMIDATE 20 MG/10 ML VIAL IV ONE (15:20)
--- NOTE | 2016-07-03 15:29 | Hospitalist History & Physical ---
<Tati Nida - Last Filed: 07/03/16 16:15> Assessment and Plan (1) Leukocytosis Status: Acute Assessment and plan: WBC's noted at 29.8 at admission; UTI confirmed; however will obtain stool specimen to r/o other sources of infection. Will start empiric antibiotic coverage; await culture results. Current Visit: Yes (2) Sepsis Status: Acute Assessment and plan: Initiate sepsis bundle. Current Visit: Yes (3) Seizure Status: Chronic Assessment and plan: Will resume Keppra IV for seizure management. Current Visit: Yes History of Present Illness Chief complaint: altered mental status History of present illness: This is a chronically-ill 71 year old female that presented to the ED at [facility] from [facility] for evaluation of altered mental status. The patient has a very complex medical history significant for diabetes mellitus, anoxic brain injury, seizure disorder, constipation, gouty arthritis, hypertension, and depression. Per long-term report, the patient was recently diagnosed with a urinary tract infection and started on Cipro. On last night, the patient experienced multiple episodes of nausea and vomiting, with questionable aspiration. The nursing staff reported a gross change in her mental status. They reported that the patient was non- responsive, which was an acute change from her normal baseline. The nursing staff called EMS and the patient was transported to the ED for evaluation. At the time of arrival, the patient was noted to have labored respirations; however her oxygen saturations were above 94%. Labs were obtained which were significant for leukocytosis with a white blood cell count of 29.8, BUN of 33, lactid acid at 2.3, ALT at 9, CRP at 5.00, and alkaline phosphatate at 129. Chest radiograph revealed limited expiratory chest with progressive atelectasis/ infiltration at the lung bases. CT head revealed no acute intracranial processes. The patient will be intubated for airway protection. After brief discussion with both Dr. Sullivan and Dr. Gibson, the patient will be admitted to the hospitalist service for continuation of care. Home Medications Medication Instructions Recorded Confirmed Type Allopurinol 100 mg PEG DAILY 04/11/16 07/03/16 History Glucagon 1 mg IM PRN PRN #0 vial 04/22/16 07/03/16 Rx Acetaminophen Tab [Tylenol Tab] 650 mg PEG Q6H PRN MDD 3GM/24H 07/03/16 History Ascorbic Acid Tab [Vitamin C Tab] 500 mg PEG DAILY 07/03/16 07/03/16 History Insulin Glargine [Lantus] 24 unit SUBCUT BEDTIME 07/03/16 07/03/16 History Insulin Regular [HumuLIN R] See Protocol SUBCUT ACHS 07/03/16 07/03/16 History Menthol/Zinc Oxide Oint 1 applic TOP QID PRN 07/03/16 07/03/16 History [Calmoseptine Oint] Metoprolol Tartrate Tab [Lopressor 50 mg PEG BID 07/03/16 07/03/16 History Tab] Multivitamin [Multivitamins] 1 each PEG DAILY 07/03/16 07/03/16 History Ranitidine Liquid [Zantac Syrup] 150 mg PEG BID 07/03/16 07/03/16 History hydrALAZINE TAB [Apresoline Tab] 50 mg PEG TID 07/03/16 07/03/16 History levETIRAcetam LIQUID [Keppra 500 mg PEG BID 07/03/16 07/03/16 History Liquid] Allergies Allergy/AdvReac Type Severity Reaction Status Date / Time No Known Allergies Allergy Verified 04/14/16 08:32 Medical,Surgical,& Family Hx - Medical History Cardio: History of: Hypertension Psychological: History of: Depression Neurology: History of: Seizures Endocrine: History of: Diabetes Mellitus (IDDM) - Surgical History Thoracic Surgeries: Patient denies;: Organ Transplant Neurologic Surgeries: Patient denies: Neurologic Surgery Orthopedic Surgeries: Patient denies;: Total Knee Replacement - Social History Smoking Status: Unknown if ever smoked Frequency of Alcohol Use: None Type of Drug Use: None ROS unobtainable: due to endotracheal tube, due to encephalopathy Exam - Constitutional Vitals: Period Temp Pulse Resp BP Sys/Stahl Pulse Ox Last 24 Hr 100.4 F-100.4 F 84-108 20-38 146-146/63-63 96-99 General appearance: normal weight - Head Head exam: Present: normal inspection, normocephalic, atraumatic - Eye Eye exam: Present: EOMI. Absent: conjunctival injection Pupils: Present: TOMAS, normal accommodation - ENT ENT exam: Present: normal exam, normal external ear exam, normal oropharynx - Neck Neck exam: Present: normal inspection. Absent: lymphadenopathy, meningismus, thyromegaly - Respiratory Respiratory exam: Present: rhonchi - Cardiovascular Cardiovascular exam: Present: regular rate and rhythm. Absent: carotid bruit, diastolic murmur, gallop, JVD, rubs, systolic murmur - GI/Abdominal GI/Abdominal exam: Present: normal bowel sounds, soft, other (PEG Tube noted) - Extremities Exam Extremities exam: Present: other (ulcerations to bilateral lower legs) - Neurological Exam Neurological exam: Present: altered - Expanded Neurological Exam Speech: Present: total aphasia Coma Scale Eye Opening: None Coma Scale Motor Response: None Coma Scale Verbal Response: None Coma Scale Total: 3 - Psychiatric Psychiatric exam: Present: flat affect - Skin Skin exam: Present: normal color, warm, dry Results - Labs CBC & BMP: 07/03/16 13:18 07/03/16 13:18 Lab Results: I have reviewed the past 24 hour labs Quality Measures - VTE Deep Vein Thrombosis/Pulmonary Embolism Present on Admission: No Sepsis - Sepsis Classification of Sepsis: Severe Sepsis Possible / Suspected infection from: Urinary tract/lungs Sepsis documentation within 6 hours of presentation: fluid change - Physical Exam Respiratory exam: rhonchi Cardiovascular exam: tachycardia Skin exam: normal color <Viry Gibson - Last Filed: 07/03/16 16:58> History of Present Illness History of present illness: Patient seen and examined along with ANNETTE Ni, agree with assessment and plan as documented. 71 y/o AAF with seizure disorder and hx of anoxic brain injury sent from a long-term due to fever. Found to have UTI there. Patient intubated in the emergency department. She is currently unresponsive on no sedation. Per some reports this is her baseline. On exam, peg site with no erythema, warmth or pus. She does have an impressive white count. UA consistent with UTI. Blood cultures and c.diff pending. Start vancomycin and rocephin. Pulmonary consult for help with the vent. I spoke with patient's brother, who is her next of kin. He reiterates that he does want her to be full code. Exam - Constitutional Vitals: Period Temp Pulse Resp BP Sys/Stahl Pulse Ox Last 24 Hr 100.4 F-100.4 F 84-108 12-38 146-146/63-63 96-99 Results - Labs CBC & BMP: 07/03/16 13:18 07/03/16 13:18
[2016-07-03] MEDS ORDERED: LEVOFLOXACIN INJ 500 MG in PREMIX 1 EACH IV SCH (15:30)
[2016-07-03] MEDS ORDERED: SUCCINYLCHOLINE 200 MG/10 ML VIAL ONE (15:32)
[2016-07-03] MEDS ORDERED: VECURONIUM 10 MG VIAL IV ONE (15:32)
--- NOTE | 2016-07-03 15:59 | XRay Report ---
XR chest 1V portable Indication: Endotracheal tube placement. Comparison: Chest x-ray 07/03/2016 Technique: Portable AP chest was performed. Findings: Endotracheal tube terminates at the level of the aortic knob. Chest otherwise demonstrates no significant change since placement of tube. Impression: 1. Endotracheal tube placement as detailed. 2. Stable appearance of the chest. No active process is suggested. 07/03/2016 3:56 PM PROCEDURE INTERPRETED AT [facility] DEPARTMENT OF RADIOLOGY Final Report Signed by: Dr. Lux Toscano
[2016-07-03 16:00] LABS: ABG Base Excess 1.8 MMOL/L (-2.5-2.5); ABG HCO3 26.1 MMOL/L (20-26); ABG Oxygen Saturation 99.5 % (95-100); ABG PCO2 32.5 MM HG (35-48); ABG TCO2 22.3 MMOL/L (23-27)
[2016-07-03] MEDS ORDERED: LEVOFLOXACIN INJ 150 ML IV ONE (18:14)
[2016-07-03] MEDS ORDERED: cefTRIAXone 500 MG VIAL ONE (18:14)
[2016-07-03] MEDS ORDERED: SODIUM CHLORIDE 0.9% 100 ML IV ONE (20:14)
[2016-07-03 20:54] LABS: ABG Base Excess 0.8 MMOL/L (-2.5-2.5); ABG HCO3 25.1 MMOL/L (20-26); ABG Oxygen Saturation 99.6 % (95-100); ABG PCO2 31.5 MM HG (35-48); ABG PH 7.483 (7.35-7.45); ABG TCO2 21.1 MMOL/L (23-27); Allen Test Positive; Pt O2 Delivery Device Ventilator
[2016-07-03] MEDS: VANCOMYCIN INJ 1,000 MG in SODIUM CHLORIDE 0.9% 250 ML IV SCH (21:00)
[2016-07-03] MEDS: SODIUM CHLORIDE 0.9% 1,000 ML IV SCH (21:07)
[2016-07-03] MEDS: levETIRAcetam LIQUID 100 MG/ML 30 ML/BOTTLE PEG SCH (21:07)
[2016-07-03] MEDS: LACTOBACILLUS RHAMNOSUS GG CAPSULE PO SCH (21:07)
[2016-07-04] MEDS ORDERED: DEXTROSE 50% 25 GM/50 ML VIAL IV PRN (02:17)
[2016-07-04] MEDS ORDERED: GLUCAGON 1 MG VIAL IM PRN (02:17)
[2016-07-04] MEDS: INSULIN GLARGINE 100 UNIT/ML SUBCUT SCH ×3 (03:20→21:05)
[2016-07-04 03:45] LABS: Allen Test Positive; Pt O2 Delivery Device Ventilator
[2016-07-04 03:46] LABS: ABG Base Excess 1.5 MMOL/L (-2.5-2.5); ABG HCO3 25.8 MMOL/L (20-26); ABG Oxygen Saturation 99.4 % (95-100); ABG PCO2 31.3 MM HG (35-48); ABG PH 7.498 (7.35-7.45); ABG TCO2 22.1 MMOL/L (23-27)
[2016-07-04] MEDS: INSULIN LISPRO 100 UNIT/ML SUBCUT SCH ×3 (06:10→19:07)
[2016-07-04 06:12] LABS: INR 1.2; PT Patient Result 12.8 SECS; Partial Thromboplastin Time 23.9 SECS (0-40)
[2016-07-04 06:25] LABS: Alanine Aminotransferase < 9 U/L (13-56); Alkaline Phosphatase 128 U/L (45-117); Aspartate Amino Transferase 18 U/L (0-37); Blood Urea Nitrogen 21 MG/DL (7-18); Calcium 8.2 MG/DL (8.5-10.1); Glucose 223 MG/DL (74-106); Osmolality,Calculated 288.4 MOS/KG (273-304); Potassium 4.3 MMOL/L (3.5-5.1); Sodium 140 MMOL/L (136-145); Total Protein 6.6 G/DL (6.4-8.3)
--- NOTE | 2016-07-04 07:53 | Pulmonology Consult Note ---
Assessment and Plan (1) Seizure Status: Chronic Assessment and plan: Does have a history of seizure disorder. No seizures reported. Current Visit: Yes (2) Anoxic brain injury Status: Acute Assessment and plan: Decreased level of consciousness from previous neurologic event. Current Visit: No (3) Sepsis Status: Acute Assessment and plan: Does appear septic. Given IV fluids and broad-spectrum antibiotics. Cultures are pending from urine and blood. Current Visit: Yes (4) Altered mental status Status: Acute Assessment and plan: Apparently she was less responsive than usual prior to admission. Current Visit: Yes (5) UTI (urinary tract infection) Status: Acute Assessment and plan: Await cultures. On empiric antibiotics. Vancomycin and Rocephin Current Visit: Yes History of Present Illness Chief complaint: Decreased level of consciousness History of present illness: Ms. Pritchard is a 71 year old female was sent over from the long-term ( [facility]) with altered level of consciousness. She was found to have pyuria and fever and elevated white count. Follow-up to have a urinary tract infection. She had recently been started on Cipro at the long-term. Her chest x-ray has shown only minimal atelectasis. She was intubated to protect her airway as she was having labored respirations in the emergency room. Unable to obtain any more history as far as the patient is concerned. Most of this is from the chart. I do note that she is on Keppra for seizure disorder. She is diabetic. She has a history of gout. Also hypertension. She does have a history of hypoxic brain injury in the past as well. She was bedridden at the long-term. Home Medications Medication Instructions Recorded Confirmed Type Allopurinol 100 mg PEG DAILY 04/11/16 07/03/16 History Glucagon 1 mg IM PRN PRN #0 vial 04/22/16 07/03/16 Rx Acetaminophen Tab [Tylenol Tab] 650 mg PEG Q6H PRN MDD 3GM/24H 07/03/16 History Ascorbic Acid Tab [Vitamin C Tab] 500 mg PEG DAILY 07/03/16 07/03/16 History Insulin Glargine [Lantus] 24 unit SUBCUT BEDTIME 07/03/16 07/03/16 History Insulin Regular [HumuLIN R] See Protocol SUBCUT ACHS 07/03/16 07/03/16 History Menthol/Zinc Oxide Oint 1 applic TOP QID PRN 07/03/16 07/03/16 History [Calmoseptine Oint] Metoprolol Tartrate Tab [Lopressor 50 mg PEG BID 07/03/16 07/03/16 History Tab] Multivitamin [Multivitamins] 1 each PEG DAILY 07/03/16 07/03/16 History Ranitidine Liquid [Zantac Syrup] 150 mg PEG BID 07/03/16 07/03/16 History hydrALAZINE TAB [Apresoline Tab] 50 mg PEG TID 07/03/16 07/03/16 History levETIRAcetam LIQUID [Keppra 500 mg PEG BID 07/03/16 07/03/16 History Liquid] Allergies Allergy/AdvReac Type Severity Reaction Status Date / Time No Known Allergies Allergy Verified 04/14/16 08:32 ROS unobtainable: due to mental status Exam (Pulmonay) H&P - Constitutional Vitals: Period Temp Pulse Resp BP Sys/Stahl Pulse Ox Last 24 Hr 97.6 F-99.1 F 91-122 12-17 90-154/49-79 100-100 Exam: Patient is unresponsive. Vital signs show pulse in the 120s. Blood pressure is 125/60 temperature 99.1. Respiratory rate 18. Pupils are responsive. Orotracheal tube in place. Neck is supple. Chest reveals minimal expiratory rhonchi. Heart rapid rate normal rhythm no murmurs. Abdomen is soft no masses. Extremities no clubbing cyanosis. She does have 1+ edema. Medical,Surgical,& Family Hx - Medical History Cardio: History of: Hypertension Psychological: History of: Depression Neurology: History of: Seizures Endocrine: History of: Diabetes Mellitus (IDDM) Rheumatology: History of;: Gout Respiratory: History of: Pneumonia Gastrointestinal: History of: GERD - Surgical History Thoracic Surgeries: Patient denies;: Organ Transplant Neurologic Surgeries: Patient denies: Neurologic Surgery Orthopedic Surgeries: Patient denies;: Total Knee Replacement - Social History Smoking Status: Unknown if ever smoked Frequency of Alcohol Use: None Type of Drug Use: None Results - Labs CBC & BMP: 07/03/16 13:18 07/04/16 05:28 Lab Results: I have reviewed the past 24 hour labs - Diagnostic Findings Procedure: Chest x-ray: image reviewed by me (ET tube in good position. Minimal patchy atelectatic areas. No acute infiltrates.) Quality Measures - VTE Deep Vein Thrombosis/Pulmonary Embolism Present on Admission: No
--- NOTE | 2016-07-04 08:17 | XRay Report ---
XR chest 1V portable Indication: Shortness of breath Comparison: Chest x-ray 07/03/2016 Technique: Portable AP chest was performed. Findings: Multiple tubes and medical support devices appear stable. Minimally worsened nonconsolidating airspace opacities overlying the left hemidiaphragm. Chest is otherwise unchanged. Impression: 1. Minimal interval worsening of nonconsolidated airspace opacities in the left lung base are suggested. 07/04/2016 8:14 AM PROCEDURE INTERPRETED AT [facility] DEPARTMENT OF RADIOLOGY Final Report Signed by: Dr. Lux Toscano
[2016-07-04] MEDS: SODIUM CHLORIDE 0.9% 1,000 ML IV SCH ×4 (08:58→20:52)
[2016-07-04] MEDS: VANCOMYCIN INJ 1,000 MG in SODIUM CHLORIDE 0.9% 250 ML IV SCH ×2 (09:01→20:50)
[2016-07-04] MEDS: LACTOBACILLUS RHAMNOSUS GG CAPSULE PO SCH ×2 (09:01→20:51)
[2016-07-04] MEDS: levETIRAcetam LIQUID 100 MG/ML 30 ML/BOTTLE PEG SCH ×2 (09:01→20:51)
--- NOTE | 2016-07-04 09:18 | Hospitalist Progress Note ---
Assessment and Plan - Time spent with patient Time spent with patient: Greater than 30 minutes (1) Altered mental status Status: Acute Assessment and plan: Patient is reported altered mental status. This is likely encephalopathy secondary to underlying sepsis. Continue current treatment. Wean per pulmonary. Assess mental status and obtain information about her baseline at that time as she has a history of hypoxic brain injury. Current Visit: Yes (2) Sepsis Status: Acute Assessment and plan: Patient was admitted with sepsis possibly secondary to urinary tract infection and was placed on sepsis protocol. Continuing IV fluids and broad-spectrum IV antibiotics. She was apparently intubated in the emergency department for airway protection. Current Visit: Yes (3) Seizure Status: Chronic Assessment and plan: Patient has history of seizure disorder with no recent seizures noted. Current Visit: Yes (4) Diabetes mellitus Status: Chronic Assessment and plan: Patient has history of diabetes mellitus. Continue current medical regimen. Current Visit: No Qualifiers: Diabetes mellitus type: type 1 Hospitalist: Subjective Interval history: Chart reviewed and patient has been examined. No new issues overnight. She remains intubated and on ventilatory support. She has been seen by pulmonary. Exam - Constitutional Vitals: Period Temp Pulse Resp BP Sys/Stahl Pulse Ox Last 24 Hr 97.6 F-99.1 F 91-122 12-25 90-154/49-79 100-100 General appearance: no acute distress - Head Head exam: Present: normocephalic, atraumatic - Eye Eye exam: Present: EOMI Pupils: Present: TOMAS - ENT ENT exam: Present: normal exam - Neck Neck exam: Present: normal inspection - Respiratory Respiratory exam: Present: rhonchi - Cardiovascular Cardiovascular exam: Present: regular rate and rhythm. Absent: systolic murmur - GI/Abdominal GI/Abdominal exam: Present: normal bowel sounds, soft, other (PEG tube in place) . Absent: mass, tenderness - Extremities Exam Extremities exam: Present: edema. Absent: calf tenderness - Back Exam Back exam: Present: normal inspection - Neurological Exam Neurological exam: Present: other (She is currently on a ventilator, sedated, no purposeful movement) - Skin Skin exam: Present: warm, dry. Absent: rash Results - Labs CBC & BMP: 07/03/16 13:18 07/04/16 05:28 Lab Results: I have reviewed the past 24 hour labs - Diagnostic Findings Procedure: Chest x-ray: report reviewed by me Quality Measures - VTE Deep Vein Thrombosis/Pulmonary Embolism Present on Admission: No
[2016-07-04] MEDS: PROPOFOL 1,000 MG/100 ML BOTTLE IV SCH (13:05)
--- NOTE | 2016-07-04 17:13 | ECHO Report ---
Debbie Pritchard Exam Date: 07/04/2016 07:57 Referring Physician: Technologist: Jessa Arguelles RDCS Age: 71 Ht (in): 66 Wt (lb): 160 Gender: F Exam Location: [facility] Echo Indications: Altered mental status, Leukocytosis, Sepsis, Essential (primary) hypertension, Seizures, IDDM, Anoxic brain injury BP: 124 / 58 HR: 129 Rhythm: Sinus Technical Quality: Technically difficult study IMPRESSIONS Technically difficult study. Hyperdynamic left ventricle. EF 65 %. Grade I/IV diastolic dysfunction (abnormal relaxation filling pattern), normal to mildly elevated filling pressures. The right ventricle is normal in size and function. The right atrium is mildly enlarged. The left atrium is mildly enlarged. Mildly thickened mitral valve. No mitral valve regurgitation. Aortic valve sclerosis. No aortic valve regurgitation. Trace to mild tricuspid valve regurgitation. [id number]. Pulmonic valve not well visualized. Normal pericardium without effusion. Normal ascending aorta dimension. MEASUREMENTS (Male / Female) Normal Values 2D ECHO LV Diastolic Diameter PLAX 4.0 cm 4.2 - 5.9 / 3.9 - 5.3 cm LV Systolic Diameter PLAX 1.5 cm LV Fractional Shortening PLAX 62.3 % IVS Diastolic Thickness 1.1 cm 0.6 - 1.0 / 0.6 - 0.9 cm LVPW Diastolic Thickness 1.1 cm 0.6 - 1.0 / 0.6 - 0.9 cm RV Internal Dim ED PLAX 2.0 cm Aortic Root Diameter 3.2 cm LA Systolic Diameter LX 3.3 cm 3.0 - 4.0 / 2.7 - 3.8 cm FINDINGS Left Ventricle Hyperdynamic left ventricle.EF 65 %. Grade I/IV diastolic dysfunction (abnormal relaxation filling pattern), normal to mildly elevated filling pressures. Right Ventricle The right ventricle is normal in size and function. Right Atrium The right atrium is mildly enlarged. Left Atrium The left atrium is mildly enlarged. Mitral Valve Mildly thickened mitral valve. No mitral valve regurgitation. Aortic Valve Aortic valve sclerosis. No aortic valve regurgitation. Tricuspid Valve Morphologically normal tricuspid valve. Trace to mild tricuspid valve regurgitation. [id number]. Pulmonic Valve Pulmonic valve not well visualized. Pericardium Normal pericardium without effusion. Aorta Normal ascending aorta dimension. Momo Hebert (Electronically Signed) Final Date: 04 Jul 2016 17:13
[2016-07-05] MEDS: INSULIN LISPRO 100 UNIT/ML SUBCUT SCH ×3 (02:13→13:02)
[2016-07-05] MEDS: PROPOFOL 1,000 MG/100 ML BOTTLE IV SCH ×2 (03:00→13:03)
[2016-07-05 03:52] LABS: ABG Base Excess -0.7 MMOL/L (-2.5-2.5); ABG HCO3 22.3 MMOL/L (20-26); ABG PCO2 31.2 MM HG (35-48); ABG PH 7.472 (7.35-7.45); ABG TCO2 23.3 MMOL/L (23-27); Allen Test Positive; Pt O2 Delivery Device Ventilator
[2016-07-05] MEDS: SODIUM CHLORIDE 0.9% 1,000 ML IV SCH ×2 (04:40→14:28)
[2016-07-05 05:14] LABS: Basophils % 0.1 % (0.0-0.8); Eosinophils # 0.4 10*3/uL (0.0-0.87); Eosinophils % 1.6 % (0.00-10.9); Hematocrit 30.5 VOL% (35.7-47.0); Hemoglobin 9.6 GM/DL (12.0-16.0); Immature Granulocytes % 0.9 %; Lymphocytes # 4.9 10*3/uL (1.4-4.0); Lymphocytes % 21.6 % (21.3-54.2); Mean Corpuscular HGB Conc 31.5 GM/DL (32-36); Mean Corpuscular Hemoglobin 28 PG (27-34); Mean Corpuscular Volume 89.4 FL (87-102); Mean Platelet Volume 10.7 FL (9.6-12.0); Monocytes # 1.4 10*3/uL (0.11-0.8); Monocytes % 6.1 % (1.7-12.7); Neutrophils % 69.7 % (38.7-73.9); Platelet Count 335 T/CUMM (130-400); Red Blood Count 3.41 MC/CUMM (3.8-5.5); Red Cell Distribution Width 15.5 % (9.3-17.3); White Blood Count 22.9 T/CUMM (4-12)
[2016-07-05 05:46] LABS: Calcium 8.1 MG/DL (8.5-10.1); Osmolality,Calculated 287.7 MOS/KG (273-304); Potassium 3.9 MMOL/L (3.5-5.1)
[2016-07-05 05:47] LABS: Hypochromasia 1+; Microcytosis 1+; Platelet Estimate Normal
--- NOTE | 2016-07-05 07:45 | Hospitalist Progress Note ---
Assessment and Plan - Time spent with patient Time spent with patient: Less than 30 minutes (1) Altered mental status Status: Acute Assessment and plan: 07/04/16: Patient is reported altered mental status. This is likely encephalopathy secondary to underlying sepsis. Continue current treatment. Wean per pulmonary. Assess mental status and obtain information about her baseline at that time as she has a history of hypoxic brain injury. 07/05/16: Continuing current treatment of underlying sepsis. Will reassess mental status once extubated. Current Visit: Yes (2) Sepsis Status: Acute Assessment and plan: 07/04/16: Patient was admitted with sepsis possibly secondary to urinary tract infection and was placed on sepsis protocol. Continuing IV fluids and broad- spectrum IV antibiotics. She was apparently intubated in the emergency department for airway protection. 07/05/16: Urine reveals greater than 100,000 colonies gram-positive cocci. Continuing empiric antibiotics while awaiting final culture ID and sensitivity. Continuing ventilatory support and IV fluids. Current Visit: Yes (3) Seizure Status: Chronic Assessment and plan: Patient has history of seizure disorder with no recent seizures noted. Current Visit: Yes (4) Diabetes mellitus Status: Chronic Assessment and plan: Patient has history of diabetes mellitus. Continue current medical regimen. Current Visit: No Qualifiers: Diabetes mellitus type: type 1 Hospitalist: Subjective Interval history: Patient remains intubated and sedated on a ventilator. No other significant issues occurred overnight. Exam - Constitutional Vitals: Period Temp Pulse Resp BP Sys/Stahl Pulse Ox Last 24 Hr 97.9 F-99.3 F 92-147 12-34 103-162/45-76 99-100 General appearance: no acute distress - Head Head exam: Present: normocephalic, atraumatic - Eye Eye exam: Present: EOMI Pupils: Present: TOMAS - ENT ENT exam: Present: other (ET tube in place) - Neck Neck exam: Present: normal inspection - Respiratory Respiratory exam: Present: rhonchi - Cardiovascular Cardiovascular exam: Present: regular rate and rhythm, tachycardia - GI/Abdominal GI/Abdominal exam: Present: normal bowel sounds, soft. Absent: mass, tenderness , rebound - Extremities Exam Extremities exam: Absent: calf tenderness, edema - Neurological Exam Neurological exam: Present: other (Sedated and intubated on a ventilator, she will withdrawal to noxious stimuli) - Skin Skin exam: Present: warm, dry. Absent: rash Results - Labs CBC & BMP: 07/05/16 04:34 07/05/16 04:34 Lab Results: I have reviewed the past 24 hour labs - Diagnostic Findings Procedure: Chest x-ray: image reviewed by me Quality Measures - VTE Deep Vein Thrombosis/Pulmonary Embolism Present on Admission: No
--- NOTE | 2016-07-05 08:40 | XRay Report ---
XR chest 1V portable Indication: Ventilator. Comparison: Chest x-ray 07/04/2016 Technique: Portable AP chest was performed. Findings: Worsening haziness left lung base suggests worsening atelectasis or dependent pleural fluid. Faint air bronchograms additionally are present within the left lower lobe and infection is not entirely excluded. Multiple tubes and medical support devices appear stable. Chest otherwise demonstrates little change. Impression: 1. Worsening atelectasis and/or infection involving the left lower lobe is suggested. Small amount of pleural fluid is not excluded. 07/05/2016 8:36 AM PROCEDURE INTERPRETED AT [facility] DEPARTMENT OF RADIOLOGY Final Report Signed by: Dr. Lux Toscano
--- NOTE | 2016-07-05 08:42 | Pulmonology Progress Note ---
Pulmonary - PN: Subj Interval history: This 71-year-old female is a [facility] patient with seizure disorder. She came in with decreased level of consciousness and an apparent urinary tract infection with sepsis. She is intubated to defend her airways. She has some left lower lobe opacification on x-ray. Not clear whether this represents pneumonia. Portable AP film makes it difficult to tell. She does indeed have a urinary tract infection and is on treatment for that. She is growing gram- positive cocci and is on Rocephin and vancomycin. This likely will be enterococcus. Exam (Progress Note) - Constitutional Vitals: Period Temp Pulse Resp BP Sys/Stahl Pulse Ox Last 24 Hr 97.9 F-99.3 F 92-147 3-34 103-162/45-76 99-100 Exam: Patient sedated and not responsive. Vital signs normal. Pupils are reactive. Orotracheal tube in place. Neck is supple no bruits. Chest sounds clear. Heart normal rate rhythm no murmurs. Abdomen soft no masses. Extremities no clubbing cyanosis edema. Results - Labs CBC & BMP: 07/05/16 04:34 07/05/16 04:34 Lab Results: I have reviewed the past 24 hour labs - Diagnostic Findings Procedure: Chest x-ray: image reviewed by me (ET tube good position. Questionable infiltrate at left base.) Assessment and Plan (1) Seizure Status: Chronic Assessment and plan: Does have a history of seizure disorder. No seizures reported. 07/05/2016 continuing seizure medications. Current Visit: Yes (2) Anoxic brain injury Status: Acute Assessment and plan: Decreased level of consciousness from previous neurologic event. 07/05/2016 apparently remote incident. Current Visit: No (3) Sepsis Status: Acute Assessment and plan: Does appear septic. Given IV fluids and broad-spectrum antibiotics. Cultures are pending from urine and blood. 07/05/2016 culture positive for gram-positive cocci. Suspect this is the source of her sepsis. Presently on Rocephin and vancomycin. Current Visit: Yes (4) Altered mental status Status: Acute Assessment and plan: Apparently she was less responsive than usual prior to admission. 07/05/2016 we will have to monitor her mental status when it gets closer to time for extubation. Hopefully will improve. Current Visit: Yes (5) UTI (urinary tract infection) Status: Acute Assessment and plan: Await cultures. On empiric antibiotics. Vancomycin and Rocephin 07/05/2016 gram-positive cocci and urine. Await final ID. Current Visit: Yes
[2016-07-05] MEDS: SODIUM CHLOR 0.45% KCL 20 MEQ 20 MEQ/1,000 ML BAG IV SCH ×2 (09:17→20:00)
[2016-07-05] MEDS: VANCOMYCIN INJ 1,000 MG in SODIUM CHLORIDE 0.9% 250 ML IV SCH ×2 (09:18→21:00)
[2016-07-05] MEDS: LACTOBACILLUS RHAMNOSUS GG CAPSULE PO SCH ×2 (09:19→21:23)
[2016-07-05] MEDS: levETIRAcetam LIQUID 100 MG/ML 30 ML/BOTTLE PEG SCH ×2 (09:19→21:23)
[2016-07-05] MEDS: INSULIN GLARGINE 100 UNIT/ML SUBCUT SCH ×2 (21:23→21:33)
[2016-07-06 04:21] LABS: Allen Test Positive; Pt O2 Delivery Device Ventilator
[2016-07-06 04:22] LABS: ABG Base Excess -2.9 MMOL/L (-2.5-2.5); ABG Oxygen Saturation 98.4 % (95-100); ABG PCO2 31.7 MM HG (35-48); ABG PH 7.426 (7.35-7.45); ABG TCO2 19.3 MMOL/L (23-27)
[2016-07-06] MEDS: SODIUM CHLOR 0.45% KCL 20 MEQ 20 MEQ/1,000 ML BAG IV SCH (04:24)
[2016-07-06] MEDS: INSULIN LISPRO 100 UNIT/ML SUBCUT SCH ×4 (04:24→17:51)
[2016-07-06 05:31] LABS: Basophils % 0.2 % (0.0-0.8); Eosinophils # 0.5 10*3/uL (0.0-0.87); Eosinophils % 3.3 % (0.00-10.9); Hematocrit 28.5 VOL% (35.7-47.0); Hemoglobin 8.8 GM/DL (12.0-16.0); Immature Granulocytes % 0.7 %; Immature Granulocytes Absolute 0.12 #; Lymphocytes # 3.9 10*3/uL (1.4-4.0); Lymphocytes % 23.7 % (21.3-54.2); Mean Corpuscular HGB Conc 30.9 GM/DL (32-36); Mean Corpuscular Hemoglobin 28 PG (27-34); Mean Corpuscular Volume 89.1 FL (87-102); Mean Platelet Volume 10.7 FL (9.6-12.0); Monocytes % 6.3 % (1.7-12.7); Neutrophils # 10.8 10*3/uL (1.4-7.4); Neutrophils % 65.8 % (38.7-73.9); Platelet Count 294 T/CUMM (130-400); Red Cell Distribution Width 15.3 % (9.3-17.3); White Blood Count 16.5 T/CUMM (4-12)
[2016-07-06] MEDS: PROPOFOL 1,000 MG/100 ML BOTTLE IV SCH ×3 (05:58→19:13)
[2016-07-06 06:01] LABS: Magnesium 1.9 MG/DL (1.8-2.4); Osmolality,Calculated 281.8 MOS/KG (273-304); Potassium 3.9 MMOL/L (3.5-5.1)
--- NOTE | 2016-07-06 07:39 | XRay Report ---
Referring Physician: CHARLEY Ni Exam: XR chest 1V portable Date: July 06, 2016 at 3:14 AM Reason: Shortness of breath Comparison: Chest one view portable July 05, 2016 Findings: An endotracheal tube is again in place. The cardiac silhouette is upper normal in size. There are minimal scattered opacities within both lungs. This could represent atelectasis or improving pneumonia. No pneumothorax is identified. The osseous structures appear stable. Impression: Interval improved aeration of the left lung base. There are persistent minimal scattered opacities within both lungs, which could represent atelectasis or improving pneumonia. PROCEDURE INTERPRETED AT [facility] DEPARTMENT OF RADIOLOGY Final Report Signed by: Dr. Ross Vallejo
[2016-07-06] MEDS: VANCOMYCIN INJ 1,000 MG in SODIUM CHLORIDE 0.9% 250 ML IV SCH (09:11)
[2016-07-06] MEDS: levETIRAcetam LIQUID 100 MG/ML 30 ML/BOTTLE PEG SCH ×2 (09:13→20:45)
[2016-07-06] MEDS: LACTOBACILLUS RHAMNOSUS GG CAPSULE PO SCH ×2 (09:13→20:45)
--- NOTE | 2016-07-06 09:17 | Pulmonology Progress Note ---
Pulmonary - PN: Subj Interval history: This 71-year-old female is a longterm patient with seizure disorder. She came in with decreased level of consciousness and an apparent urinary tract infection with sepsis. She is intubated to defend her airways. She has some left lower lobe opacification on x-ray. Not clear whether this represents pneumonia. Portable AP film makes it difficult to tell. She does indeed have a urinary tract infection and is on treatment for that. She is growing gram- positive cocci and is on Rocephin and vancomycin. This likely will be enterococcus. 07/06/2016 chest x-ray shows the lower left lung to be clear now. I do not think this represented a pneumonia. Her sepsis likely is due to her urinary tract infection. The enterococcus is sensitive to ampicillin. I am going to change her to Unasyn and stop both the vancomycin and Rocephin. She has not had any further seizures. Neurology evaluation in progress. We can hold her propofol and if she is alert began on CPAP. ABGs look good. Exam (Progress Note) - Constitutional Vitals: Period Temp Pulse Resp BP Sys/Stahl Pulse Ox Last 24 Hr 97.9 F-98.6 F 90-103 12-31 114-168/50-78 90-100 Exam: Patient sedated and not responsive. Vital signs normal. Pupils are reactive. Orotracheal tube in place. Neck is supple no bruits. Chest sounds clear. Heart normal rate rhythm no murmurs. Abdomen soft no masses. Extremities no clubbing cyanosis edema. Results - Labs CBC & BMP: 07/06/16 04:54 07/06/16 04:54 Lab Results: I have reviewed the past 24 hour labs - Diagnostic Findings Procedure: Chest x-ray: image reviewed by me (Lungs essentially clear now. ET tube in good position.) Assessment and Plan (1) Seizure Status: Chronic Assessment and plan: Does have a history of seizure disorder. No seizures reported. 07/05/2016 continuing seizure medications. 07/06/2016 patient on seizure medications. Neurology evaluation pending. Current Visit: Yes (2) Anoxic brain injury Status: Acute Assessment and plan: Decreased level of consciousness from previous neurologic event. 07/05/2016 apparently remote incident. Current Visit: No (3) Sepsis Status: Acute Assessment and plan: Does appear septic. Given IV fluids and broad-spectrum antibiotics. Cultures are pending from urine and blood. 07/05/2016 culture positive for gram-positive cocci. Suspect this is the source of her sepsis. Presently on Rocephin and vancomycin. 07/06/2016 I think her sepsis was due to urinary tract infection. X-ray is clear now. Do not think she has pneumonia. Current Visit: Yes (4) Altered mental status Status: Acute Assessment and plan: Apparently she was less responsive than usual prior to admission. 07/05/2016 we will have to monitor her mental status when it gets closer to time for extubation. Hopefully will improve. 07/04/2016 had a pre-existing hypoxic brain injury with superimposed seizures and now on sedation. We will hold sedation and have neurology evaluate. Start CPAP weaning trials Current Visit: Yes (5) UTI (urinary tract infection) Status: Acute Assessment and plan: Await cultures. On empiric antibiotics. Vancomycin and Rocephin 07/05/2016 gram-positive cocci and urine. Await final ID. 07/06/2016 enterococcus UTI. Sensitive to ampicillin. Changing antibiotics to Unasyn Current Visit: Yes
[2016-07-06] MEDS: AMPICILLIN/SULBACTAM 3,000 MG in SODIUM CHLORIDE 0.9% 100 ML IV SCH ×2 (11:13→16:42)
[2016-07-06] MEDS: DESITIN 4OZ/NYSTATIN 15 GRAM MIXTURE PASTE TOP SCH ×2 (11:14→20:45)
--- NOTE | 2016-07-06 14:21 | Neurology Consult Note ---
History of Present Illness History of present illness: Patient is unable to provide me any history. History basically obtained from the chart. This is a chronically-ill 71 year old -[place] lady that presented to the ED at [facility] from [facility] for evaluation of altered mental status. The patient has a very complex medical history significant for diabetes mellitus, anoxic brain injury, seizure disorder , constipation, gouty arthritis, hypertension, and depression. Per fdc report, the patient was recently diagnosed with a urinary tract infection and started on Cipro. On on the night of admission, the patient experienced multiple episodes of nausea and vomiting, with questionable aspiration. The nursing staff reported a gross change in her mental status. They reported that the patient was non-responsive, which was an acute change from her normal baseline. The nursing staff called EMS and the patient was transported to the ED for evaluation. CT head without contrast is unremarkable for any acute pathology. Home Medications Medication Instructions Recorded Confirmed Type Allopurinol 100 mg PEG DAILY 04/11/16 07/03/16 History Glucagon 1 mg IM PRN PRN #0 vial 04/22/16 07/03/16 Rx Acetaminophen Tab [Tylenol Tab] 650 mg PEG Q6H PRN MDD 3GM/24H 07/03/16 History Ascorbic Acid Tab [Vitamin C Tab] 500 mg PEG DAILY 07/03/16 07/03/16 History Insulin Glargine [Lantus] 24 unit SUBCUT BEDTIME 07/03/16 07/03/16 History Insulin Regular [HumuLIN R] See Protocol SUBCUT ACHS 07/03/16 07/03/16 History Menthol/Zinc Oxide Oint 1 applic TOP QID PRN 07/03/16 07/03/16 History [Calmoseptine Oint] Metoprolol Tartrate Tab [Lopressor 50 mg PEG BID 07/03/16 07/03/16 History Tab] Multivitamin [Multivitamins] 1 each PEG DAILY 07/03/16 07/03/16 History Ranitidine Liquid [Zantac Syrup] 150 mg PEG BID 07/03/16 07/03/16 History hydrALAZINE TAB [Apresoline Tab] 50 mg PEG TID 07/03/16 07/03/16 History levETIRAcetam LIQUID [Keppra 500 mg PEG BID 07/03/16 07/03/16 History Liquid] Allergies Allergy/AdvReac Type Severity Reaction Status Date / Time No Known Allergies Allergy Verified 04/14/16 08:32 ROS unobtainable: due to endotracheal tube, due to mental status Medical,Surgical,& Family Hx - Medical History Cardio: History of: Hypertension Psychological: History of: Depression Neurology: History of: Seizures Endocrine: History of: Diabetes Mellitus (IDDM) Rheumatology: History of;: Gout Respiratory: History of: Pneumonia Gastrointestinal: History of: GERD - Surgical History Thoracic Surgeries: Patient denies;: Organ Transplant Neurologic Surgeries: Patient denies: Neurologic Surgery Orthopedic Surgeries: Patient denies;: Total Knee Replacement - Social History Smoking Status: Unknown if ever smoked Frequency of Alcohol Use: None Type of Drug Use: None Exam - Constitutional Vitals: Period Temp Pulse Resp BP Sys/Stahl Pulse Ox Last 24 Hr 97.9 F-98.6 F 92-103 12-31 114-168/52-78 98-100 Exam: GENERAL: Patient is in no acute distress. NECK: Neck is stiff. There is no JVD. No carotid bruits present. No thyroid masses. CVS: First and second heart sounds are normal. There is no S3 present. Regular rate and rhythm. RESPIRATORY: Lungs are clear to auscultation without any rales or rhonchi. ABDOMEN: Soft and non-tender. Bowel sounds are present. There is no hepatosplenomegaly. EXT: There is no palpable edema. Peripheral pulses are present. Patient is in contracted state in all 4 extremities. Skin: No rashes Central Nervous system: General: Unresponsive Speech: None Comprehension: None Facial expressions: Normal Cranial Nerves: Pupils are reactive to light. Doll's head eye movements are positive. Motor: Patient is in contracted state in all 4 extremities Sensory: Cannot be assessed Reflexes: 1+ and symmetrical Cerebellar function: Cannot be assessed Toes: Equivocal Gait: Cannot be assessed Results - Labs CBC & BMP: 07/06/16 04:54 07/06/16 04:54 Assessment and Plan (1) Encephalopathy Status: Acute Assessment and plan: This is likely multifactorial including infectious, hypoxic, metabolic etiology. Current Visit: Yes (2) Seizure disorder Status: Acute Assessment and plan: Continue Keppra Check EEG Thank you for the consult Current Visit: No
--- NOTE | 2016-07-06 14:45 | Hospitalist Progress Note ---
Assessment and Plan (1) Acute respiratory failure Status: Acute Assessment and plan: Dr. sheikh is managing the vent, patient AMS and unable to protect airway Current Visit: No Qualifiers: Respiratory failure complication: unspecified whether with hypoxia or hypercapnia Qualified Code(s): J96.00 - Acute respiratory failure, unspecified whether with hypoxia or hypercapnia (2) Seizure disorder Status: Acute Assessment and plan: cont keppra Current Visit: No (3) Encephalopathy Status: Acute Assessment and plan: metabolic vs hypoxic vs infectious Current Visit: Yes (4) Diabetes mellitus Status: Chronic Assessment and plan: bs running low, d/c lantus, started tube feeding Current Visit: No Qualifiers: Diabetes mellitus type: type 1 (5) Anoxic brain injury Status: Acute Assessment and plan: hx of TOMMY in remote past Current Visit: No (6) Sepsis Status: Acute Assessment and plan: blood cx negative, bilateral opacities on cxr, only on ampicillin for enterococcus, no sputum culture, check bnp, HL IVF, wbc improving Current Visit: Yes (7) UTI (urinary tract infection) Status: Acute Assessment and plan: cont unasyn for enterococcus UTI Current Visit: Yes Hospitalist: Subjective Interval history: History of hypoxic brain injury in past, chewing on tube, does breath over the vent. Dr Cummings has seen her and concerned and would like to check an eeg. Patient already on keppra Exam - Constitutional Vitals: Period Temp Pulse Resp BP Sys/Stahl Pulse Ox Last 24 Hr 97.9 F-98.6 F 92-103 12-31 114-168/52-78 98-100 Exam: Heart Rate-[tachy] Lungs-[course crackles ] GI-[+bs soft, NT] Ext-[no edema] Neuro does not follow commands, pupils reactive, agitated psych agitated mood and affect] General [mild acute distress] Results - Labs CBC & BMP: 07/06/16 04:54 07/06/16 04:54 Lab Results: I have reviewed the past 24 hour labs Labs: Urine culture growing enterococcus, blood cultures 2 negative no growth, stool is negative for C. difficile for WBCs. - Diagnostic Findings Procedure: Chest x-ray: report reviewed by me (bilateral opacities ) Quality Measures - VTE Deep Vein Thrombosis/Pulmonary Embolism Present on Admission: No
[2016-07-07] MEDS: INSULIN LISPRO 100 UNIT/ML SUBCUT SCH ×5 (00:40→19:05)
--- NOTE | 2016-07-07 04:49 | Event Note ---
Patient was down to 1 peripheral IV for which she was receiving to prevent through an additional IV was needed. Opted to place a triple-lumen catheter since multiple attempts by nursing staff could not yield a decent working peripheral line. Patient was a very hard stick and has a lot of swelling in her extremities. After informed consent was obtained from the family on the phone. The area around her left eye J was cleaned in a sterile fashion. An ultrasound was used and a finder needle was introduced until good venous return was obtained. After good good venous return was obtained a wire was placed over the needle and the needle was withdrawn. A dilator was then placed and the quad-lumen was placed over the wire and the wire was withdrawn. All 4 ports flushed easily. Chest x-ray was reviewed with proper placement verified of the catheter. Staff informed okay to use
[2016-07-07] MEDS: AMPICILLIN/SULBACTAM 3,000 MG in SODIUM CHLORIDE 0.9% 100 ML IV SCH ×3 (05:02→20:17)
[2016-07-07] MEDS: PROPOFOL 1,000 MG/100 ML BOTTLE IV SCH ×3 (05:43→17:53)
[2016-07-07 06:00] LABS: Basophils % 0.1 % (0.0-0.8); Eosinophils # 0.5 10*3/uL (0.0-0.87); Eosinophils % 4.5 % (0.00-10.9); Hematocrit 27.7 VOL% (35.7-47.0); Hemoglobin 8.7 GM/DL (12.0-16.0); Immature Granulocytes % 1.3 %; Immature Granulocytes Absolute 0.15 #; Lymphocytes # 2.6 10*3/uL (1.4-4.0); Lymphocytes % 22.7 % (21.3-54.2); Mean Corpuscular HGB Conc 31.4 GM/DL (32-36); Mean Corpuscular Hemoglobin 28 PG (27-34); Mean Corpuscular Volume 87.9 FL (87-102); Mean Platelet Volume 10.7 FL (9.6-12.0); Monocytes # 0.8 10*3/uL (0.11-0.8); Monocytes % 6.7 % (1.7-12.7); Neutrophils # 7.5 10*3/uL (1.4-7.4); Neutrophils % 64.7 % (38.7-73.9); Platelet Count 312 T/CUMM (130-400); Red Blood Count 3.15 MC/CUMM (3.8-5.5); Red Cell Distribution Width 15.5 % (9.3-17.3); White Blood Count 11.5 T/CUMM (4-12)
[2016-07-07 06:36] LABS: Calcium 7.9 MG/DL (8.5-10.1); Potassium 3.7 MMOL/L (3.5-5.1)
[2016-07-07 06:43] LABS: Magnesium 1.8 MG/DL (1.8-2.4); Phosphorous 2.9 MG/DL (2.5-4.9); Prealbumin 5.5 MG/DL (20-40)
--- NOTE | 2016-07-07 07:14 | Pulmonology Progress Note ---
Pulmonary - PN: Subj Interval history: This 71-year-old female is a half-way patient with seizure disorder. She came in with decreased level of consciousness and an apparent urinary tract infection with sepsis. She is intubated to defend her airways. She has some left lower lobe opacification on x-ray. Not clear whether this represents pneumonia. Portable AP film makes it difficult to tell. She does indeed have a urinary tract infection and is on treatment for that. She is growing gram- positive cocci and is on Rocephin and vancomycin. This likely will be enterococcus. 07/06/2016 chest x-ray shows the lower left lung to be clear now. I do not think this represented a pneumonia. Her sepsis likely is due to her urinary tract infection. The enterococcus is sensitive to ampicillin. I am going to change her to Unasyn and stop both the vancomycin and Rocephin. She has not had any further seizures. Neurology evaluation in progress. We can hold her propofol and if she is alert began on CPAP. ABGs look good. 07/07/2016 patient did fairly well with 30 minutes CPAP yesterday. Will progress per protocol and see if we can get her weaned. Apparently had urinary tract infection with sepsis. No signs of any pneumonia. She is a half-way patient with a seizure disorder. Not sure about her baseline neurologic status. Exam (Progress Note) - Constitutional Vitals: Period Temp Pulse Resp BP Sys/Stahl Pulse Ox Last 24 Hr 97.3 F-98.9 F 80-116 12-31 98-165/45-95 98-100 Exam: Patient sedated and not responsive. Vital signs normal. Pupils are reactive. Orotracheal tube in place. Neck is supple no bruits. Chest sounds clear. Heart normal rate rhythm no murmurs. Abdomen soft no masses. Extremities no clubbing cyanosis edema. Little change from yesterday. Results - Labs CBC & BMP: 07/07/16 05:31 07/07/16 05:31 Lab Results: I have reviewed the past 24 hour labs - Diagnostic Findings Procedure: Chest x-ray: image reviewed by me (ET tube good position. Lungs are clear.) Assessment and Plan (1) Seizure Status: Chronic Assessment and plan: Does have a history of seizure disorder. No seizures reported. 07/05/2016 continuing seizure medications. 07/06/2016 patient on seizure medications. Neurology evaluation pending. 07/07/2016 no further seizures. Current Visit: Yes (2) Anoxic brain injury Status: Acute Assessment and plan: Decreased level of consciousness from previous neurologic event. 07/05/2016 apparently remote incident. Current Visit: No (3) Sepsis Status: Acute Assessment and plan: Does appear septic. Given IV fluids and broad-spectrum antibiotics. Cultures are pending from urine and blood. 07/05/2016 culture positive for gram-positive cocci. Suspect this is the source of her sepsis. Presently on Rocephin and vancomycin. 07/06/2016 I think her sepsis was due to urinary tract infection. X-ray is clear now. Do not think she has pneumonia. 07/07/2016 sepsis likely due to urinary tract infection with enterococcus. Covered with Unasyn. Current Visit: Yes (4) Altered mental status Status: Acute Assessment and plan: Apparently she was less responsive than usual prior to admission. 07/05/2016 we will have to monitor her mental status when it gets closer to time for extubation. Hopefully will improve. 07/06/2016 had a pre-existing hypoxic brain injury with superimposed seizures and now on sedation. We will hold sedation and have neurology evaluate. Start CPAP weaning trials 07/07/2016 hold sedation start further CPAP. Current Visit: Yes (5) UTI (urinary tract infection) Status: Acute Assessment and plan: Await cultures. On empiric antibiotics. Vancomycin and Rocephin 07/05/2016 gram-positive cocci and urine. Await final ID. 07/06/2016 enterococcus UTI. Sensitive to ampicillin. Changing antibiotics to Unasyn 07/07/2016 continuing Unasyn. Current Visit: Yes
--- NOTE | 2016-07-07 07:43 | XRay Report ---
Referring Physician: Maninder Rogers Exam: XR chest 1V portable Date: July 07, 2016 at 4:32 AM Reason: Central line placement Comparison: Chest one view portable July 06, 2016 Findings: An endotracheal tube is again in place. There is also a left IJ catheter with its distal tip within the SVC. The cardiac silhouette is normal in size. There are minimal scattered opacities within the right lower lung zone and possibly at the left lung base. This likely represents atelectasis, but other considerations include improving pneumonia. No pneumothorax or pleural effusion is identified. The osseous structures appear stable. Impression: There has been interval placement of a right IJ catheter. The study is otherwise similar to before. PROCEDURE INTERPRETED AT [facility] DEPARTMENT OF RADIOLOGY Final Report Signed by: Dr. Ross Vallejo
[2016-07-07] MEDS: LACTOBACILLUS RHAMNOSUS GG CAPSULE PO SCH ×2 (09:33→20:17)
[2016-07-07] MEDS: DESITIN 4OZ/NYSTATIN 15 GRAM MIXTURE PASTE TOP SCH ×2 (09:33→20:17)
[2016-07-07] MEDS: levETIRAcetam LIQUID 100 MG/ML 30 ML/BOTTLE PEG SCH ×2 (09:44→20:17)
--- NOTE | 2016-07-07 13:27 | Hospitalist Progress Note ---
Assessment and Plan (1) Acute respiratory failure Status: Acute Assessment and plan: Dr. sheikh is managing the vent, cont attempts to wean from vent, cpap trials tid Current Visit: No Qualifiers: Respiratory failure complication: unspecified whether with hypoxia or hypercapnia Qualified Code(s): J96.00 - Acute respiratory failure, unspecified whether with hypoxia or hypercapnia (2) Seizure disorder Status: Acute Assessment and plan: cont keppra, no more seizures overnight Current Visit: No (3) Encephalopathy Status: Acute Assessment and plan: metabolic vs hypoxic vs infectious Current Visit: Yes (4) Diabetes mellitus Status: Chronic Assessment and plan: bs running better today,will restart lantus tonight Current Visit: No Qualifiers: Diabetes mellitus type: type 1 (5) Anoxic brain injury Status: Acute Assessment and plan: hx of TOMMY in remote past Current Visit: No (6) Sepsis Status: Acute Assessment and plan: blood cx negative, cont unasyn for enterococcus in urine, cxr improving and wbc improving Current Visit: Yes (7) UTI (urinary tract infection) Status: Acute Assessment and plan: cont unasyn for enterococcus UTI Current Visit: Yes Hospitalist: Subjective Interval history: Patient still on the vent. She is responsive to pain. Exam - Constitutional Vitals: Period Temp Pulse Resp BP Sys/Stahl Pulse Ox Last 24 Hr 97.8 F-98.9 F 80-114 13-21 98-165/45-78 98-100 Exam: Heart Rate-[tachy] Lungs-[ctab] GI-[+bs soft, NT] Ext-[no edema] Neuro does not follow commands, withdraws to pain psych unable to evaluate General no acute distress] Results - Labs CBC & BMP: 07/07/16 05:31 07/07/16 05:31 Lab Results: I have reviewed the past 24 hour labs Labs: Blood cultures 2 negative, urine culture growing enterococcus, stool for C. difficile negative. - Diagnostic Findings Procedure: Chest x-ray: report reviewed by me (Improvement of air movement in the left lung base) Quality Measures - VTE Deep Vein Thrombosis/Pulmonary Embolism Present on Admission: No
--- NOTE | 2016-07-07 16:21 | Electroencephalogram ---
HISTORY: A 71-year-old female with a history of altered mental status. INTRODUCTION: A digital EEG was performed using standard 10/20 system of electrode placement with o ne channel of EKG monitoring. Photic stimulation is performed. DESCRIPTION OF RECORD: As the tracing opens, the background is very disorganized, consists of very low amplitude 6 to 7 hertz bilaterally symmetrical rhythm. There are no sharp waves, spike or wave activity seen. Heart rate 52 beats per minute. IMPRESSION: ABNORMAL EEG DUE TO GENERALIZED SLOWING. CLINICAL CORRELATION: This record is supportive of severe encephalopathy, which could be secondary to postictal state, posthypoxic state, metabolic disorder, diffuse SIEV[employer]PA[employer]ER insult, or increased intracra nial pressure. No epileptiform/seizure activity seen. Clinical correlation is suggested.
--- NOTE | 2016-07-07 17:23 | Neurology Progress Note ---
Neurology - PN : Subjective Interval history: Patient seems to be doing about the same. No changes reported. Still unresponsive. EEG showed generalized slowing. Exam (Progress Note) - Constitutional Vitals: Period Temp Pulse Resp BP Sys/Stahl Pulse Ox Last 24 Hr 97.5 F-98.9 F 80-103 12-20 98-165/45-78 98-100 Exam: GENERAL: Patient is in no acute distress. NECK: Neck is stiff. There is no JVD. No carotid bruits present. No thyroid masses. CVS: First and second heart sounds are normal. There is no S3 present. Regular rate and rhythm. RESPIRATORY: Lungs are clear to auscultation without any rales or rhonchi. ABDOMEN: Soft and non-tender. Bowel sounds are present. There is no hepatosplenomegaly. EXT: There is no palpable edema. Peripheral pulses are present. Patient is in contracted state in all 4 extremities. Skin: No rashes Central Nervous system: General: Unresponsive Speech: None Comprehension: None Facial expressions: Normal Cranial Nerves: Pupils are reactive to light. Doll's head eye movements are positive. Motor: Patient is in contracted state in all 4 extremities Sensory: Cannot be assessed Reflexes: 1+ and symmetrical Cerebellar function: Cannot be assessed Toes: Equivocal Gait: Cannot be assessed Results - Labs CBC & BMP: 07/07/16 05:31 07/07/16 05:31 Assessment and Plan (1) Encephalopathy Status: Acute Assessment and plan: This is likely multifactorial including infectious, hypoxic, metabolic etiology. Current Visit: Yes (2) Seizure disorder Status: Acute Assessment and plan: Continue Keppra Prognosis poor. Current Visit: No Quality Measures - VTE Deep Vein Thrombosis/Pulmonary Embolism Present on Admission: No
[2016-07-07] MEDS: MUPIROCIN 2% OINT 22 GM TUBE TOP SCH (20:17)
[2016-07-08] MEDS: INSULIN LISPRO 100 UNIT/ML SUBCUT SCH ×4 (00:40→19:05)
[2016-07-08] MEDS: PROPOFOL 1,000 MG/100 ML BOTTLE IV SCH ×2 (00:41→06:48)
[2016-07-08 03:50] LABS: ABG Base Excess 1.1 MMOL/L (-2.5-2.5); ABG HCO3 25.4 MMOL/L (20-26); ABG PH 7.458 (7.35-7.45); Allen Test Positive; Pt O2 Delivery Device Ventilator
[2016-07-08 05:05] LABS: Basophils % 0.2 % (0.0-0.8); Eosinophils # 0.9 10*3/uL (0.0-0.87); Eosinophils % 7.6 % (0.00-10.9); Hematocrit 25.5 VOL% (35.7-47.0); Hemoglobin 8.1 GM/DL (12.0-16.0); Immature Granulocytes % 1.1 %; Immature Granulocytes Absolute 0.13 #; Lymphocytes # 3.3 10*3/uL (1.4-4.0); Mean Corpuscular HGB Conc 31.8 GM/DL (32-36); Mean Corpuscular Hemoglobin 28 PG (27-34); Mean Corpuscular Volume 87.6 FL (87-102); Mean Platelet Volume 10.8 FL (9.6-12.0); Monocytes # 0.9 10*3/uL (0.11-0.8); Monocytes % 7.5 % (1.7-12.7); Neutrophils # 6.5 10*3/uL (1.4-7.4); Neutrophils % 55.6 % (38.7-73.9); Platelet Count 296 T/CUMM (130-400); Red Blood Count 2.91 MC/CUMM (3.8-5.5); Red Cell Distribution Width 15.6 % (9.3-17.3); White Blood Count 11.7 T/CUMM (4-12)
[2016-07-08 05:29] LABS: Calcium 7.9 MG/DL (8.5-10.1); Osmolality,Calculated 288.7 MOS/KG (273-304); Potassium 3.8 MMOL/L (3.5-5.1)
[2016-07-08] MEDS: AMPICILLIN/SULBACTAM 3,000 MG in SODIUM CHLORIDE 0.9% 100 ML IV SCH ×3 (05:47→21:24)
--- NOTE | 2016-07-08 07:12 | XRay Report ---
Referring Physician: Aashish Cartagena MD Exam: XR chest 1V portable Date: July 08, 2016 at 3:31 AM Reason: Ventilation Comparison: Chest one view portable July 07, 2016 Findings: An endotracheal tube and left IJ catheter are again in place. The distal tip of the endotracheal tube projects just above the jessy today, directed towards the right mainstem bronchus. It is recommended that it be retracted approximately 2 cm. The cardiac silhouette is normal in size. Motion artifact is present, but there is likely minimal atelectasis within both lower lung zones. No pneumothorax is identified. The osseous structures appear stable. Impression: 1. The distal tip of the endotracheal tube now projects just above the jessy, directed towards the right mainstem bronchus. It is recommended that it be retracted approximately 2 cm. 2. Motion artifact is present, but the study otherwise appears similar to before. Findings were discussed with the patient's nurse on July 08, 2016 at 7:09 AM. PROCEDURE INTERPRETED AT [facility] DEPARTMENT OF RADIOLOGY Final Report Signed by: Dr. Ross Vallejo
--- NOTE | 2016-07-08 08:27 | Pulmonology Progress Note ---
Pulmonary - PN: Subj Interval history: This 71-year-old female is a [facility] patient with seizure disorder. She came in with decreased level of consciousness and an apparent urinary tract infection with sepsis. She is intubated to defend her airways. She has some left lower lobe opacification on x-ray. Not clear whether this represents pneumonia. Portable AP film makes it difficult to tell. She does indeed have a urinary tract infection and is on treatment for that. She is growing gram- positive cocci and is on Rocephin and vancomycin. This likely will be enterococcus. 07/06/2016 chest x-ray shows the lower left lung to be clear now. I do not think this represented a pneumonia. Her sepsis likely is due to her urinary tract infection. The enterococcus is sensitive to ampicillin. I am going to change her to Unasyn and stop both the vancomycin and Rocephin. She has not had any further seizures. Neurology evaluation in progress. We can hold her propofol and if she is alert began on CPAP. ABGs look good. 07/07/2016 patient did fairly well with 30 minutes CPAP yesterday. Will progress per protocol and see if we can get her weaned. Apparently had urinary tract infection with sepsis. No signs of any pneumonia. She is a [facility] patient with a seizure disorder. Not sure about her baseline neurologic status. 07/08/2016 patient is tolerating CPAP. Not sure whether she can control her airway if extubated. She has improved somewhat from the urinary tract infection. She is about ready for extubation. However we are trying to contact the family now to decide what to do if after extubation she has trouble again. Given her previous hypoxic brain injury, we may just want supportive care. Exam (Progress Note) - Constitutional Vitals: Period Temp Pulse Resp BP Sys/Stahl Pulse Ox Last 24 Hr 97.5 F-98.9 F 92-106 12-20 103-147/40-79 98-100 Exam: Patient sedated and not responsive. Vital signs normal. Pupils are reactive. Orotracheal tube in place. Neck is supple no bruits. Chest sounds clear. Heart normal rate rhythm no murmurs. Abdomen soft no masses. Extremities no clubbing cyanosis edema. Little change from yesterday. Results - Labs CBC & BMP: 07/08/16 04:30 07/08/16 04:30 Lab Results: I have reviewed the past 24 hour labs - Diagnostic Findings Procedure: Chest x-ray: image reviewed by me (ET tube is at the jessy and will be repositioned. Minimal left basilar atelectasis. Otherwise lungs clear.) Assessment and Plan (1) Seizure Status: Chronic Assessment and plan: Does have a history of seizure disorder. No seizures reported. 07/05/2016 continuing seizure medications. 07/06/2016 patient on seizure medications. Neurology evaluation pending. 07/07/2016 no further seizures. 07/08/2016 no further seizures. Current Visit: Yes (2) Anoxic brain injury Status: Acute Assessment and plan: Decreased level of consciousness from previous neurologic event. 07/05/2016 apparently remote incident. 07/08/2016 patient not responsive not on sedation. Current Visit: No (3) Sepsis Status: Acute Assessment and plan: Does appear septic. Given IV fluids and broad-spectrum antibiotics. Cultures are pending from urine and blood. 07/05/2016 culture positive for gram-positive cocci. Suspect this is the source of her sepsis. Presently on Rocephin and vancomycin. 07/06/2016 I think her sepsis was due to urinary tract infection. X-ray is clear now. Do not think she has pneumonia. 07/07/2016 sepsis likely due to urinary tract infection with enterococcus. Covered with Unasyn. 07/08/2016 sepsis is controlled. Current Visit: Yes (4) Altered mental status Status: Acute Assessment and plan: Apparently she was less responsive than usual prior to admission. 07/05/2016 we will have to monitor her mental status when it gets closer to time for extubation. Hopefully will improve. 07/06/2016 had a pre-existing hypoxic brain injury with superimposed seizures and now on sedation. We will hold sedation and have neurology evaluate. Start CPAP weaning trials 07/07/2016 hold sedation start further CPAP. 07/08/2016 she has pre-existing chronic hypoxic brain injury and dementia. Current Visit: Yes (5) UTI (urinary tract infection) Status: Acute Assessment and plan: Await cultures. On empiric antibiotics. Vancomycin and Rocephin 07/05/2016 gram-positive cocci and urine. Await final ID. 07/06/2016 enterococcus UTI. Sensitive to ampicillin. Changing antibiotics to Unasyn 07/07/2016 continuing Unasyn. 07/08/2016 urinary tract infection with sepsis controlled with Unasyn. Current Visit: Yes
[2016-07-08] MEDS: levETIRAcetam LIQUID 100 MG/ML 30 ML/BOTTLE PEG SCH ×2 (09:55→21:24)
[2016-07-08] MEDS: DESITIN 4OZ/NYSTATIN 15 GRAM MIXTURE PASTE TOP SCH ×2 (09:56→21:24)
[2016-07-08] MEDS: MUPIROCIN 2% OINT 22 GM TUBE TOP SCH ×3 (09:57→21:25)
[2016-07-08 10:17] LABS: ABG Base Excess 1.7 MMOL/L (-2.5-2.5); ABG Oxygen Saturation 98.1 % (95-100); ABG PH 7.424 (7.35-7.45); ABG PO2 98.7 MM HG (80-95); ABG TCO2 24.1 MMOL/L (23-27)
--- NOTE | 2016-07-08 12:23 | Hospitalist Progress Note ---
Assessment and Plan (1) Acute respiratory failure Status: Acute Assessment and plan: Dr. sheikh has extubated the patient today. She is a DNR she will not be reintubated Current Visit: No Qualifiers: Respiratory failure complication: unspecified whether with hypoxia or hypercapnia Qualified Code(s): J96.00 - Acute respiratory failure, unspecified whether with hypoxia or hypercapnia (2) Seizure disorder Status: Acute Assessment and plan: cont keppra, no more seizures overnight Current Visit: No (3) Encephalopathy Status: Acute Assessment and plan: Has traumatic brain injury as a baseline metabolic vs hypoxic vs infectious Current Visit: Yes (4) Diabetes mellitus Status: Chronic Assessment and plan: restart lantus 5 Current Visit: No Qualifiers: Diabetes mellitus type: type 1 (5) Anoxic brain injury Status: Acute Assessment and plan: hx of TOMMY in remote past Current Visit: No (6) Sepsis Status: Acute Assessment and plan: cont unasyn for enterococcus in urine Current Visit: Yes (7) UTI (urinary tract infection) Status: Acute Assessment and plan: cont unasyn for enterococcus UTI Current Visit: Yes (8) Acute blood loss anemia Status: Acute Assessment and plan: Transfuse 1 unit packed red blood cells today, protonix 40 mg po bid Current Visit: Yes Hospitalist: Subjective Interval history: We have contacted patient's brother who is her power of duplicating machine operator about her CODE STATUS. Patient has had traumatic brain injury and is a [facility] patient and really should not be a full code. He we have spoken with his daughter about his CODE STATUS and then the brother's daughter called and talked to the brother and he okayed for us to do DNR. His conversation was witnessed by Katalina from certified social workers in health care. Patient is doing well after extubating from the vent. Exam - Constitutional Vitals: Period Temp Pulse Resp BP Sys/Stahl Pulse Ox Last 24 Hr 97.6 F-98.9 F 90-106 12-30 103-145/40-96 98-100 Exam: Heart Rate-[tachy] Lungs-[ctab] GI-[+bs soft, NT] Ext-[no edema] Neuro does not follow commands, withdraws to pain psych unable to evaluate General no acute distress] Results - Labs CBC & BMP: 07/08/16 04:30 07/08/16 04:30 Lab Results: I have reviewed the past 24 hour labs Labs: Blood cultures negative no growth - Diagnostic Findings Procedure: Chest x-ray: report reviewed by me (ET tube too far down.) Quality Measures - VTE Deep Vein Thrombosis/Pulmonary Embolism Present on Admission: No
[2016-07-08] MEDS ORDERED: SODIUM CHLORIDE 0.9% 250 ML IV PRN (12:25)
[2016-07-08 14:13] LABS: ABG Base Excess 1.7 MMOL/L (-2.5-2.5); ABG HCO3 25.9 MMOL/L (20-26); ABG PCO2 39.6 MM HG (35-48); ABG PH 7.426 (7.35-7.45); ABG TCO2 22.8 MMOL/L (23-27)
[2016-07-08] MEDS: INSULIN GLARGINE 100 UNIT/ML SUBCUT SCH (14:26)
[2016-07-08] MEDS: PANTOPRAZOLE 40 MG TABLET PO SCH ×2 (14:26→21:24)
[2016-07-08] MEDS: LACTOBACILLUS RHAMNOSUS GG CAPSULE PO SCH ×2 (14:26→21:24)
--- NOTE | 2016-07-08 16:51 | Neurology Progress Note ---
Neurology - PN : Subjective Interval history: Patient is extubated. Not opening her eyes. Looks comfortable. Not waking up and not following any commands. Exam (Progress Note) - Constitutional Vitals: Period Temp Pulse Resp BP Sys/Stahl Pulse Ox Last 24 Hr 97.6 F-99.2 F 90-112 12-33 103-155/40-96 98-100 Exam: GENERAL: Patient is in no acute distress. NECK: Neck is stiff. There is no JVD. No carotid bruits present. No thyroid masses. CVS: First and second heart sounds are normal. There is no S3 present. Regular rate and rhythm. RESPIRATORY: Lungs are clear to auscultation without any rales or rhonchi. ABDOMEN: Soft and non-tender. Bowel sounds are present. There is no hepatosplenomegaly. EXT: There is no palpable edema. Peripheral pulses are present. Patient is in contracted state in all 4 extremities. Skin: No rashes Central Nervous system: General: Unresponsive Speech: None Comprehension: None Facial expressions: Normal Cranial Nerves: Pupils are reactive to light. Doll's head eye movements are positive. Motor: Patient is in contracted state in all 4 extremities Sensory: Cannot be assessed Reflexes: 1+ and symmetrical Cerebellar function: Cannot be assessed Toes: Equivocal Gait: Cannot be assessed Results - Labs CBC & BMP: 07/08/16 04:30 07/08/16 04:30 Assessment and Plan (1) Encephalopathy Status: Acute Assessment and plan: This is likely multifactorial including infectious, hypoxic, metabolic etiology. Current Visit: Yes (2) Seizure disorder Status: Acute Assessment and plan: Continue Keppra No further intervention from neuro standpoint Sign off please call as needed Current Visit: No Quality Measures - VTE Deep Vein Thrombosis/Pulmonary Embolism Present on Admission: No
[2016-07-08 19:26] LABS: Hematocrit 31.2 VOL% (35.7-47.0)
[2016-07-08 19:28] LABS: Hemoglobin 9.9 GM/DL (12.0-16.0)
[2016-07-09] MEDS: INSULIN LISPRO 100 UNIT/ML SUBCUT SCH ×4 (01:17→18:29)
[2016-07-09 06:46] LABS: Basophils % 0.2 % (0.0-0.8); Eosinophils # 0.9 10*3/uL (0.0-0.87); Eosinophils % 6.3 % (0.00-10.9); Hematocrit 30.2 VOL% (35.7-47.0); Hemoglobin 9.4 GM/DL (12.0-16.0); Immature Granulocytes Absolute 0.27 #; Lymphocytes # 3.5 10*3/uL (1.4-4.0); Lymphocytes % 26.2 % (21.3-54.2); Mean Corpuscular HGB Conc 31.1 GM/DL (32-36); Mean Corpuscular Hemoglobin 28 PG (27-34); Mean Corpuscular Volume 88.3 FL (87-102); Mean Platelet Volume 11.1 FL (9.6-12.0); Monocytes % 7.2 % (1.7-12.7); Neutrophils # 7.8 10*3/uL (1.4-7.4); Neutrophils % 58.1 % (38.7-73.9); Platelet Count 246 T/CUMM (130-400); Red Blood Count 3.42 MC/CUMM (3.8-5.5); Red Cell Distribution Width 16.1 % (9.3-17.3); White Blood Count 13.5 T/CUMM (4-12)
[2016-07-09] MEDS: SKIN HEALING OINT (AQUAPHOR) 50 GM TUBE TOP PRN (07:30)
[2016-07-09] MEDS: DESITIN 4OZ/NYSTATIN 15 GRAM MIXTURE PASTE TOP SCH ×2 (07:30→20:56)
[2016-07-09 07:51] LABS: Calcium 7.6 MG/DL (8.5-10.1); Osmolality,Calculated 287.7 MOS/KG (273-304); Potassium 3.9 MMOL/L (3.5-5.1)
[2016-07-09] MEDS: AMPICILLIN/SULBACTAM 3,000 MG in SODIUM CHLORIDE 0.9% 100 ML IV SCH ×3 (09:42→20:57)
[2016-07-09] MEDS: levETIRAcetam LIQUID 100 MG/ML 30 ML/BOTTLE PEG SCH ×2 (09:43→20:57)
[2016-07-09] MEDS: INSULIN GLARGINE 100 UNIT/ML SUBCUT SCH (09:43)
[2016-07-09] MEDS: LACTOBACILLUS RHAMNOSUS GG CAPSULE PO SCH ×2 (09:43→20:56)
[2016-07-09] MEDS: PANTOPRAZOLE 40 MG TABLET PO SCH ×2 (09:43→20:57)
[2016-07-09] MEDS: MUPIROCIN 2% OINT 22 GM TUBE TOP SCH ×3 (09:48→20:56)
[2016-07-09] MEDS ORDERED: fentaNYL 25 MCG/HR PATCH TRANSDERM SCH (11:30)
--- NOTE | 2016-07-09 12:15 | Pulmonology Progress Note ---
Pulmonary - PN: Subj Interval history: This 71-year-old female is a shelter patient with seizure disorder. She came in with decreased level of consciousness and an apparent urinary tract infection with sepsis. She is intubated to defend her airways. She has some left lower lobe opacification on x-ray. Not clear whether this represents pneumonia. Portable AP film makes it difficult to tell. She does indeed have a urinary tract infection and is on treatment for that. She is growing gram- positive cocci and is on Rocephin and vancomycin. This likely will be enterococcus. 07/06/2016 chest x-ray shows the lower left lung to be clear now. I do not think this represented a pneumonia. Her sepsis likely is due to her urinary tract infection. The enterococcus is sensitive to ampicillin. I am going to change her to Unasyn and stop both the vancomycin and Rocephin. She has not had any further seizures. Neurology evaluation in progress. We can hold her propofol and if she is alert began on CPAP. ABGs look good. 07/07/2016 patient did fairly well with 30 minutes CPAP yesterday. Will progress per protocol and see if we can get her weaned. Apparently had urinary tract infection with sepsis. No signs of any pneumonia. She is a shelter patient with a seizure disorder. Not sure about her baseline neurologic status. 07/08/2016 patient is tolerating CPAP. Not sure whether she can control her airway if extubated. She has improved somewhat from the urinary tract infection. She is about ready for extubation. However we are trying to contact the family now to decide what to do if after extubation she has trouble again. Given her previous hypoxic brain injury, we may just want supportive care. 07/09/2016 patient was extubated yesterday. Family has decided to make her a DNR , with no plans to reintubate if she goes into respiratory failure again. It appears that a urinary tract infection and seizure disorder or primary problem for developing respiratory failure this time. She does have chronic hypoxic brain injury from previous events. From pulmonary standpoint she could be moved to the floor. Exam (Progress Note) - Constitutional Vitals: Period Temp Pulse Resp BP Sys/Stahl Pulse Ox Last 24 Hr 98.2 F-99.2 F 70-112 10-33 125-159/54-96 99-100 Exam: Patient is awake but poorly responsive. Does not respond to verbal stimulus. Vital signs normal. Pupils are reactive. She is on nasal biprong for oxygen saturation 100%. Neck is supple no bruits. Chest sounds clear. Heart normal rate rhythm no murmurs. Abdomen soft no masses. Extremities no clubbing cyanosis edema. Results - Labs CBC & BMP: 07/09/16 04:00 07/08/16 04:30 Lab Results: I have reviewed the past 24 hour labs - Diagnostic Findings Procedure: Chest x-ray: image reviewed by me (ET tube is out. Minimal basilar atelectasis. Little change from yesterday.) Assessment and Plan (1) Seizure Status: Chronic Assessment and plan: Does have a history of seizure disorder. No seizures reported. 07/05/2016 continuing seizure medications. 07/06/2016 patient on seizure medications. Neurology evaluation pending. 07/07/2016 no further seizures. 07/08/2016 no further seizures. 07/09/2016 on Keppra no further seizures. Current Visit: Yes (2) Anoxic brain injury Status: Acute Assessment and plan: Decreased level of consciousness from previous neurologic event. 07/05/2016 apparently remote incident. 07/08/2016 patient not responsive not on sedation. 07/09/2016 apparently had pre-existing hypoxic brain injury. Not sure how much change there is in current mental status compared to prior to current illness. Current Visit: No (3) Sepsis Status: Acute Assessment and plan: Does appear septic. Given IV fluids and broad-spectrum antibiotics. Cultures are pending from urine and blood. 07/05/2016 culture positive for gram-positive cocci. Suspect this is the source of her sepsis. Presently on Rocephin and vancomycin. 07/06/2016 I think her sepsis was due to urinary tract infection. X-ray is clear now. Do not think she has pneumonia. 07/07/2016 sepsis likely due to urinary tract infection with enterococcus. Covered with Unasyn. 07/08/2016 sepsis is controlled. 07/09/2016 this is controlled. Likely caused by UTI. Current Visit: Yes (4) Altered mental status Status: Acute Assessment and plan: Apparently she was less responsive than usual prior to admission. 07/05/2016 we will have to monitor her mental status when it gets closer to time for extubation. Hopefully will improve. 07/06/2016 had a pre-existing hypoxic brain injury with superimposed seizures and now on sedation. We will hold sedation and have neurology evaluate. Start CPAP weaning trials 07/07/2016 hold sedation start further CPAP. 07/08/2016 she has pre-existing chronic hypoxic brain injury and dementia. 07/09/2016 patient does move spontaneously but does not respond to verbal stimulus. Current Visit: Yes (5) UTI (urinary tract infection) Status: Acute Assessment and plan: Await cultures. On empiric antibiotics. Vancomycin and Rocephin 07/05/2016 gram-positive cocci and urine. Await final ID. 07/06/2016 enterococcus UTI. Sensitive to ampicillin. Changing antibiotics to Unasyn 07/07/2016 continuing Unasyn. 07/08/2016 urinary tract infection with sepsis controlled with Unasyn. 07/09/2016 finish current antibiotics. Current Visit: Yes
--- NOTE | 2016-07-09 13:28 | Hospitalist Progress Note ---
Assessment and Plan (1) Acute respiratory failure Status: Acute Assessment and plan: Patient unable to control her own secretions due to chronic encephalopathy due to anoxic brain injury from the past Current Visit: No Qualifiers: Respiratory failure complication: unspecified whether with hypoxia or hypercapnia Qualified Code(s): J96.00 - Acute respiratory failure, unspecified whether with hypoxia or hypercapnia (2) Seizure disorder Status: Acute Assessment and plan: cont keppra, EEG shows severe encephalopathy but no evidence to suggest active ongoing seizure activity. Current Visit: No (3) Encephalopathy Status: Acute Assessment and plan: Severe encephalopathy. Current Visit: Yes (4) Diabetes mellitus Status: Chronic Assessment and plan: Continue Lantus Current Visit: No Qualifiers: Diabetes mellitus type: type 1 (5) Anoxic brain injury Status: Acute Assessment and plan: hx of TOMMY in remote past Current Visit: No (6) Sepsis Status: Acute Assessment and plan: cont unasyn for enterococcus in urine Current Visit: Yes (7) UTI (urinary tract infection) Status: Acute Assessment and plan: cont unasyn for enterococcus UTI Current Visit: Yes (8) Acute blood loss anemia Status: Acute Assessment and plan: Hemoglobin stable continue protonix Current Visit: Yes Hospitalist: Subjective Interval history: Patient was extubated yesterday. She cannot seem to control her secretions. I am adding some morphine for breathing. I will also put her on a fentanyl patch for comfort. Family have yet to come visit her in the hospital. She was made a DNR yesterday. Exam - Constitutional Vitals: Period Temp Pulse Resp BP Sys/Stahl Pulse Ox Last 24 Hr 97.1 F-99.2 F 70-112 10-33 131-166/54-92 98-100 Exam: Heart Rate-[tachy] Lungs-[coarse bilateral rhonchi GI-[+bs soft, NT] Ext-[no edema] Neuro lethargic unable to follow verbal commands. But does withdraw to pain psych unable to evaluate due to poor neurological status General severe acute respiratory distress] Results - Labs CBC & BMP: 07/09/16 04:00 07/09/16 06:50 Lab Results: I have reviewed the past 24 hour labs - Diagnostic Findings Procedure: Ultrasound: report reviewed by me (EEG shows no seizure activity but severe encephalopathy) Quality Measures - VTE Deep Vein Thrombosis/Pulmonary Embolism Present on Admission: No
--- NOTE | 2016-07-09 14:03 | XRay Report ---
Referring Physician: Aashish Cartagena MD Exam: XR chest 1V portable Date: July 09, 2016 at 3:22 AM Reason: Ventilation Comparison: Chest one view portable July 08, 2016 Findings: A left IJ catheter is again in place. The previously seen endotracheal tube has been removed. The cardiac silhouette is normal in size. There are mild scattered opacities in the perihilar regions and within both lower lung zones. This likely represents atelectasis. No pneumothorax is identified. The osseous structures appear stable. Impression: Mild scattered atelectasis within both lungs. PROCEDURE INTERPRETED AT [facility] DEPARTMENT OF RADIOLOGY Final Report Signed by: Dr. Ross Vallejo
[2016-07-09] MEDS: MORPHINE 2 MG/1 ML SYRINGE IV PRN (18:37)
[2016-07-10] MEDS: INSULIN LISPRO 100 UNIT/ML SUBCUT SCH ×3 (00:24→12:39)
[2016-07-10] MEDS: AMPICILLIN/SULBACTAM 3,000 MG in SODIUM CHLORIDE 0.9% 100 ML IV SCH (05:16)
--- NOTE | 2016-07-10 06:44 | Pulmonology Progress Note ---
Pulmonary - PN: Subj Interval history: This 71-year-old female is a [facility] patient with seizure disorder. She came in with decreased level of consciousness and an apparent urinary tract infection with sepsis. She is intubated to defend her airways. She has some left lower lobe opacification on x-ray. Not clear whether this represents pneumonia. Portable AP film makes it difficult to tell. She does indeed have a urinary tract infection and is on treatment for that. She is growing gram- positive cocci and is on Rocephin and vancomycin. This likely will be enterococcus. 07/06/2016 chest x-ray shows the lower left lung to be clear now. I do not think this represented a pneumonia. Her sepsis likely is due to her urinary tract infection. The enterococcus is sensitive to ampicillin. I am going to change her to Unasyn and stop both the vancomycin and Rocephin. She has not had any further seizures. Neurology evaluation in progress. We can hold her propofol and if she is alert began on CPAP. ABGs look good. 07/07/2016 patient did fairly well with 30 minutes CPAP yesterday. Will progress per protocol and see if we can get her weaned. Apparently had urinary tract infection with sepsis. No signs of any pneumonia. She is a [facility] patient with a seizure disorder. Not sure about her baseline neurologic status. 07/08/2016 patient is tolerating CPAP. Not sure whether she can control her airway if extubated. She has improved somewhat from the urinary tract infection. She is about ready for extubation. However we are trying to contact the family now to decide what to do if after extubation she has trouble again. Given her previous hypoxic brain injury, we may just want supportive care. 07/09/2016 patient was extubated yesterday. Family has decided to make her a DNR , with no plans to reintubate if she goes into respiratory failure again. It appears that a urinary tract infection and seizure disorder or primary problem for developing respiratory failure this time. She does have chronic hypoxic brain injury from previous events. From pulmonary standpoint she could be moved to the floor. 07/10/2016 patient has been stable postextubation. She is not responsive due to previous hypoxic brain injury. O2 sats look good. No fever. She is stable from pulmonary standpoint. She could be moved to the floor. I will sign off. Please call if needed further Exam (Progress Note) - Constitutional Vitals: Period Temp Pulse Resp BP Sys/Stahl Pulse Ox Last 24 Hr 97.1 F-98.4 F 87-112 11-97 118-166/49-80 97-100 Exam: Patient is awake but poorly responsive. Does not respond to verbal stimulus. Vital signs normal. Pupils are reactive. She is on 2L nasal biprong for oxygen saturation 100%. Neck is supple no bruits. Chest sounds clear. Heart normal rate rhythm no murmurs. Abdomen soft no masses. Extremities no clubbing cyanosis edema. Results - Labs CBC & BMP: 07/09/16 04:00 07/09/16 06:50 Lab Results: I have reviewed the past 24 hour labs Assessment and Plan (1) Seizure Status: Chronic Assessment and plan: Does have a history of seizure disorder. No seizures reported. 07/05/2016 continuing seizure medications. 07/06/2016 patient on seizure medications. Neurology evaluation pending. 07/07/2016 no further seizures. 07/08/2016 no further seizures. 07/09/2016 on Keppra no further seizures. 07/10/2016 seizures controlled. Current Visit: Yes (2) Anoxic brain injury Status: Acute Assessment and plan: Decreased level of consciousness from previous neurologic event. 07/05/2016 apparently remote incident. 07/08/2016 patient not responsive not on sedation. 07/09/2016 apparently had pre-existing hypoxic brain injury. Not sure how much change there is in current mental status compared to prior to current illness. 07/10/2016 hypoxic brain injury from previous medical problems. Chronic decrease in mental status. Current Visit: No (3) Sepsis Status: Acute Assessment and plan: Does appear septic. Given IV fluids and broad-spectrum antibiotics. Cultures are pending from urine and blood. 07/05/2016 culture positive for gram-positive cocci. Suspect this is the source of her sepsis. Presently on Rocephin and vancomycin. 07/06/2016 I think her sepsis was due to urinary tract infection. X-ray is clear now. Do not think she has pneumonia. 07/07/2016 sepsis likely due to urinary tract infection with enterococcus. Covered with Unasyn. 07/08/2016 sepsis is controlled. 07/09/2016 this is controlled. Likely caused by UTI. Current Visit: Yes (4) Altered mental status Status: Acute Assessment and plan: Apparently she was less responsive than usual prior to admission. 07/05/2016 we will have to monitor her mental status when it gets closer to time for extubation. Hopefully will improve. 07/06/2016 had a pre-existing hypoxic brain injury with superimposed seizures and now on sedation. We will hold sedation and have neurology evaluate. Start CPAP weaning trials 07/07/2016 hold sedation start further CPAP. 07/08/2016 she has pre-existing chronic hypoxic brain injury and dementia. 07/09/2016 patient does move spontaneously but does not respond to verbal stimulus. 07/10/2016 again not responding to verbal stimulus. This is probably her baseline. Current Visit: Yes (5) UTI (urinary tract infection) Status: Acute Assessment and plan: Await cultures. On empiric antibiotics. Vancomycin and Rocephin 07/05/2016 gram-positive cocci and urine. Await final ID. 07/06/2016 enterococcus UTI. Sensitive to ampicillin. Changing antibiotics to Unasyn 07/07/2016 continuing Unasyn. 07/08/2016 urinary tract infection with sepsis controlled with Unasyn. 07/09/2016 finish current antibiotics. Current Visit: Yes
[2016-07-10] MEDS: MUPIROCIN 2% OINT 22 GM TUBE TOP SCH (09:12)
[2016-07-10] MEDS: levETIRAcetam LIQUID 100 MG/ML 30 ML/BOTTLE PEG SCH (09:36)
[2016-07-10] MEDS: INSULIN GLARGINE 100 UNIT/ML SUBCUT SCH (09:36)
[2016-07-10] MEDS: LACTOBACILLUS RHAMNOSUS GG CAPSULE PO SCH (09:36)
[2016-07-10] MEDS: DESITIN 4OZ/NYSTATIN 15 GRAM MIXTURE PASTE TOP SCH (09:36)
[2016-07-10] MEDS: PANTOPRAZOLE 40 MG TABLET PO SCH (09:36)
[2016-07-10] MEDS: MORPHINE 2 MG/1 ML SYRINGE IV PRN ×2 (09:37→20:46)
[2016-07-10] MEDS: SKIN HEALING OINT (AQUAPHOR) 50 GM TUBE TOP PRN (09:37)
--- NOTE | 2016-07-10 12:57 | Hospitalist Progress Note ---
Assessment and Plan (1) Hospice care Status: Acute Assessment and plan: fentanyl, morphine, ativan and oxygen, all decisions will defer to kimmy Current Visit: Yes (2) Acute respiratory failure Status: Acute Assessment and plan: patient unable to protect her airway, patient is now hospice end of life care. All decisions to be made by patients niece kimmy [phone]. Current Visit: No Qualifiers: Respiratory failure complication: unspecified whether with hypoxia or hypercapnia Qualified Code(s): J96.00 - Acute respiratory failure, unspecified whether with hypoxia or hypercapnia (3) Seizure disorder Status: Acute Assessment and plan: cont keppra, Current Visit: No (4) Encephalopathy Status: Acute Assessment and plan: Severe irreversible encephalopathy due to anoxic brain injury, no improvement despite treatment for infections. Current Visit: Yes (5) Anoxic brain injury Status: Acute Assessment and plan: hx of TOMMY Current Visit: No Hospitalist: Subjective Interval history: Patient's brother is her designated POA however he has recently been treated for cancer with chemotherapy and his daughter reports is just not understanding things well. I am questioning his competency to make decisions for Debbie Pritchard. I have spoken with his daughter Kimmy who helps him make decisions for care for his aunt and will defer to her for decisions. She reports that the family does not want her to suffer anymore. They do want comfort care they do understand that that will be treatment of her pain and seizures. I explained to her that the tube feeds would be discontinued and all medications that are prolonging her suffering would be discontinued. Exam - Constitutional Vitals: Period Temp Pulse Resp BP Sys/Stahl Pulse Ox Last 24 Hr 97.6 F-98.2 F 87-107 18-97 118-161/49-80 94-100 Exam: Heart Rate-[tachy] Lungs-[coarse bilateral rhonchi GI-[+bs soft, NT] Ext-[no edema] Neuro lethargic unable to follow verbal commands. Did not withdraw to pain psych unable to evaluate due to poor neurological status General severe acute respiratory distress] Results - Labs CBC & BMP: 07/09/16 04:00 07/09/16 06:50 Lab Results: I have reviewed the past 24 hour labs Quality Measures - VTE Deep Vein Thrombosis/Pulmonary Embolism Present on Admission: No
[2016-07-10] MEDS: fentaNYL 50 MCG/HR PATCH TRANSDERM SCH (13:54)
[2016-07-11] MEDS ORDERED: LORazepam 2 MG/1 ML VIAL IV PRN ×2 (10:14→11:28)
--- NOTE | 2016-07-11 11:26 | Hospitalist Progress Note ---
Assessment and Plan (1) Hospice care Status: Acute Assessment and plan: Continue fentanyl, morphine and oxygen, all decisions will defer to kimmy [phone]. Patient's brother who was the designated POA is not competent to make decisions. Will add Ativan for as needed agitation. Current Visit: Yes (2) Acute respiratory failure Status: Acute Assessment and plan: patient is now hospice end of life care. All decisions to be made by patients rian guzman [phone]. Current Visit: No Qualifiers: Respiratory failure complication: unspecified whether with hypoxia or hypercapnia Qualified Code(s): J96.00 - Acute respiratory failure, unspecified whether with hypoxia or hypercapnia (3) Seizure disorder Status: Acute Assessment and plan: cont keppra and will add Ativan as needed. Current Visit: No (4) Encephalopathy Status: Acute Assessment and plan: Severe irreversible encephalopathy due to anoxic brain injury, Current Visit: Yes (5) Anoxic brain injury Status: Acute Assessment and plan: hx of TOMMY Current Visit: No Hospitalist: Subjective Interval history: Patient appears very agitated today. She is receiving comfort measures only with morphine as needed. Will add Ativan to her regimen to lessen her agitation. Per conversation with her niece Kimmy at [phone] her father is currently undergoing chemotherapy and mentally does not understand patient's medical condition. Said they will be making all decisions for the patient. Exam - Constitutional Vitals: Period Temp Pulse Resp BP Sys/Stahl Pulse Ox Last 24 Hr 97.3 F-98.4 F 98-108 15-22 140-170/62-77 87-99 Exam: Heart Rate-[tachy] Lungs-diminished not taking deep breath GI-[+bs soft, NT] Ext-[no edema] Neuro agitated especially to touch. psych agitated. General no acute respiratory distress] Results - Labs CBC & BMP: 07/09/16 04:00 07/09/16 06:50 Quality Measures - VTE Deep Vein Thrombosis/Pulmonary Embolism Present on Admission: No
[2016-07-11] MEDS: levETIRAcetam 500 MG TABLET PO SCH ×2 (11:42→20:16)
[2016-07-12] MEDS: levETIRAcetam 500 MG TABLET PO SCH (08:59)
--- NOTE | 2016-07-12 12:46 | Hospitalist Progress Note ---
Assessment and Plan (1) Hospice care Status: Acute Assessment and plan: Continue fentanyl 50 mcg patch, started ativan 2 mg po tid to prevent seizures. cont ativan and morphine and oxygen at 2 liters no titration, all decisions will defer to megan [phone]. Patient's brother who was the designated POA is not competent to make decisions. Current Visit: Yes (2) Acute respiratory failure Status: Acute Assessment and plan: patient is now hospice end of life care. All decisions to be made by patients niece megan [phone]. 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 She is on complete hospice care. We are waiting Medicaid in order to send her for hospice to a custodial. She has less agitation after starting her on Ativan. Exam - Constitutional Vitals: Period Temp Pulse Resp BP Sys/Stahl Pulse Ox Last 24 Hr 97.7 F-100.8 F 93-113 18-22 124-137/57-79 98-100 Exam: Heart Rate-[tachy] Lungs-diminished GI-[+bs soft, NT] Ext-[some anasarca] Neuro sleeping peacefully psych sleeping cannot not assess General no acute respiratory distress] Results - Labs CBC & BMP: 07/09/16 04:00 07/09/16 06:50 Quality Measures - VTE Deep Vein Thrombosis/Pulmonary Embolism Present on Admission: No
[2016-07-12] MEDS ORDERED: LORazepam 1 MG TABLET PO SCH (13:00)
[2016-07-12] MEDS: LORazepam 1 MG TABLET PO SCH ×2 (14:19→20:27)
--- NOTE | 2016-07-13 08:00 | Hospitalist Progress Note ---
Assessment and Plan (1) Anoxic brain injury Status: Acute Assessment and plan: Impression: 1. Anoxic brain injury with aspiration Plan: Continue to provide comfort care. We are awaiting transfer to a senior care and institution of outpatient hospice care. The patient has a Barnhart catheter, which she can continue with at discharge. She has a left neck vein IV catheter , which we are using for morphine and Ativan as needed. This can be discontinued at the time of discharge. This note was completed using [employer] voice recognition software. There may be combination man errors as a result. Current Visit: No Hospitalist: Subjective Interval history: Follow-up anoxic brain injury with recurrent aspiration. The patient continues to receive comfort care. We are presently waiting on arrangements to be made for transfer to a senior care and institution of hospice care. The patient cannot offer any complaints. Exam - Constitutional Vitals: Period Temp Pulse Resp BP Sys/Stahl Pulse Ox Last 24 Hr 98.0 F-100.8 F 110-114 15-21 131-163/67-79 94-100 Vital signs are noted above. Heart is regular with distant tones and no murmur or gallop. She has a few rhonchi in the chest. No wheezes noted. Abdomen is soft with positive bowel sounds. PEG site is intact. She does not respond to verbal or tactile stimulation, but resists examination. Results - Labs CBC & BMP: 07/09/16 04:00 07/09/16 06:50 Quality Measures - VTE Deep Vein Thrombosis/Pulmonary Embolism Present on Admission: No
[2016-07-13] MEDS: LORazepam 1 MG TABLET PO SCH ×3 (08:52→21:21)
[2016-07-13] MEDS: fentaNYL 50 MCG/HR PATCH TRANSDERM SCH (08:52)
--- NOTE | 2016-07-14 07:59 | Hospitalist Progress Note ---
Assessment and Plan (1) Anoxic brain injury Status: Acute Assessment and plan: Impression: 1. Anoxic brain injury with aspiration Plan: Await further discharge planning. She is ready for discharge from our standpoint. This note was completed using [employer] voice recognition software. There may be grant coordinator errors as a result. Current Visit: No Hospitalist: Subjective Interval history: Follow-up anoxic brain injury. The patient is unchanged from my examination yesterday. We are apparently still waiting on family members or case management to make discharge arrangements to a [facility] so that the patient can be discharged to a hospice service. The patient does not communicate with the external environment , and no problems are noted by the staff. Exam - Constitutional Vitals: Period Temp Pulse Resp BP Sys/Stahl Pulse Ox Last 24 Hr 97.7 F-99.9 F 97-112 18-24 120-151/61-75 99-100 Vital signs are noted above. Heart is regular with distant tones and no murmur. Chest is clear with no rales or wheezes. She has some upper airway sounds. Abdomen is soft without mass. She does not respond to external stimulation. Results - Labs CBC & BMP: 07/09/16 04:00 07/09/16 06:50 Quality Measures - VTE Deep Vein Thrombosis/Pulmonary Embolism Present on Admission: No
[2016-07-14] MEDS: LORazepam 1 MG TABLET PO SCH ×3 (09:37→20:28)
--- NOTE | 2016-07-15 07:57 | Hospitalist Progress Note ---
Assessment and Plan (1) Anoxic brain injury Status: Acute Assessment and plan: Impression: 1. Anoxic brain injury with aspiration Plan: We are still waiting on the family to complete their portion of the intermediate admission process. She is ready for discharge from our standpoint. This note was completed using [employer] voice recognition software. There may be logistics program manager errors as a result. Current Visit: No Hospitalist: Subjective Interval history: Follow-up anoxic brain injury with aspiration. We are still waiting on family members to complete the intermediate application. She has been ready for discharge for the past 5 days. Exam - Constitutional Vitals: Period Temp Pulse Resp BP Sys/Stahl Pulse Ox Last 24 Hr 97.6 F-100.2 F 98-118 18-22 118-159/48-84 95-100 Vital signs are noted above. Heart is regular with no murmur or gallop. Lungs are clear with no rales or wheezes. She does not interact with the external environment. Results - Labs CBC & BMP: 07/09/16 04:00 07/09/16 06:50 Quality Measures - VTE Deep Vein Thrombosis/Pulmonary Embolism Present on Admission: No
[2016-07-15] MEDS: LORazepam 1 MG TABLET PO SCH ×3 (09:04→20:48)
--- NOTE | 2016-07-16 07:41 | Hospitalist Progress Note ---
Assessment and Plan (1) Anoxic brain injury Status: Acute Assessment and plan: Impression: 1. Anoxic brain injury with aspiration Plan: [facility] arrangements are made This note was completed using [employer] voice recognition software. There may be clinical research specialist errors as a result. Current Visit: No Hospitalist: Subjective Interval history: Follow-up anoxic brain injury. The patient is unchanged clinically over the past several days. We are still waiting on notification for discharge. She is [facility] hospice once arrangements have been made. Exam - Constitutional Vitals: Period Temp Pulse Resp BP Sys/Stahl Pulse Ox Last 24 Hr 98 F-99.0 F 66-106 15-21 129-160/63-72 94-99 Vital signs are noted above. Heart is regular with no murmur or gallop. Lungs are clear with no rales or wheezes. She does not interact with the external environment. Results - Labs CBC & BMP: 07/09/16 04:00 07/09/16 06:50 Quality Measures - VTE Deep Vein Thrombosis/Pulmonary Embolism Present on Admission: No
[2016-07-16] MEDS: LORazepam 1 MG TABLET PO SCH ×3 (08:28→21:45)
[2016-07-16] MEDS: fentaNYL 50 MCG/HR PATCH TRANSDERM SCH (08:28)
[2016-07-17] MEDS: LORazepam 1 MG TABLET PO SCH ×3 (10:20→21:35)
--- NOTE | 2016-07-17 15:39 | Hospitalist Progress Note ---
Assessment and Plan (1) Hypoxic encephalopathy Status: Chronic Current Visit: No (2) Anoxic brain injury Status: Chronic Current Visit: No (3) Decreased level of consciousness Status: Chronic Current Visit: Yes (4) Hospice care Status: Chronic Assessment and plan: Continue with comfort measures. Current Visit: Yes Hospitalist: Subjective Interval history: Patient is resting no acute changes. Comfort measures in place. At this time waiting for placement for this patient. Exam - Constitutional Vitals: Period Temp Pulse Resp BP Sys/Stahl Pulse Ox Last 24 Hr 97.4 F-98.6 F 89-109 15-22 145-164/76-77 97-100 General appearance: under weight - Head Head exam: Present: normal inspection - Neck Neck exam: Present: normal inspection - Respiratory Respiratory exam: Present: clear to auscultation bilaterally - Cardiovascular Cardiovascular exam: Present: regular rate and rhythm - GI/Abdominal GI/Abdominal exam: Present: normal bowel sounds - Neurological Exam Neurological exam: Present: other (Patient is lethargic) - Skin Skin exam: Present: normal color Results - Labs CBC & BMP: 07/09/16 04:00 07/09/16 06:50 Quality Measures - VTE Deep Vein Thrombosis/Pulmonary Embolism Present on Admission: No
--- NOTE | 2016-07-18 08:05 | Hospitalist Progress Note ---
Assessment and Plan - Time spent with patient Time spent with patient: Less than 30 minutes (1) Anoxic brain injury Status: Chronic Current Visit: No (2) Hospice care Status: Chronic Assessment and plan: Patient is now on comfort measures only. Will continue current support while we are awaiting placement for this patient. Current Visit: Yes Hospitalist: Subjective Interval history: Chart reviewed and patient examined. Patient is resting comfortably. Exam - Constitutional Vitals: Period Temp Pulse Resp BP Sys/Stahl Pulse Ox Last 24 Hr 97.6 F-100.4 F 105-119 18-232 131-163/54-89 99-100 General appearance: no acute distress - Head Head exam: Present: normal inspection - Respiratory Respiratory exam: Present: clear to auscultation bilaterally - Cardiovascular Cardiovascular exam: Present: regular rate and rhythm - GI/Abdominal GI/Abdominal exam: Present: normal bowel sounds, soft. Absent: tenderness - Extremities Exam Extremities exam: Absent: calf tenderness, edema - Neurological Exam Neurological exam: Present: other (Resting comfortably, she has minimal withdrawal to any noxious stimuli and does not open her eyes nor obey simple commands) - Skin Skin exam: Present: warm, dry Results - Labs CBC & BMP: 07/09/16 04:00 07/09/16 06:50 Quality Measures - VTE Deep Vein Thrombosis/Pulmonary Embolism Present on Admission: No
[2016-07-18] MEDS: LORazepam 1 MG TABLET PO SCH ×3 (09:59→21:02)
--- NOTE | 2016-07-19 07:48 | Hospitalist Progress Note ---
Assessment and Plan - Time spent with patient Time spent with patient: Less than 30 minutes (1) Anoxic brain injury Status: Chronic Current Visit: No (2) Hospice care Status: Chronic Assessment and plan: Patient is now on comfort measures only. Will continue current support while we are awaiting placement for this patient. Current Visit: Yes Hospitalist: Subjective Interval history: Patient is resting comfortably. No further issues occurred overnight. Exam - Constitutional Vitals: Period Temp Pulse Resp BP Sys/Stahl Pulse Ox Last 24 Hr 97.7 F-99.5 F 92-106 12-20 136-146/61-71 100-100 General appearance: no acute distress - Head Head exam: Present: normal inspection - Respiratory Respiratory exam: Present: clear to auscultation bilaterally - Cardiovascular Cardiovascular exam: Present: regular rate and rhythm - GI/Abdominal GI/Abdominal exam: Present: normal bowel sounds, soft, other (PEG in place). Absent: tenderness - Extremities Exam Extremities exam: Absent: calf tenderness, edema - Neurological Exam Neurological exam: Present: other (Resting comfortably. She does not open her eyes, obey simple commands and has minimal withdrawal to any noxious stimuli) - Skin Skin exam: Present: warm, dry Results - Labs CBC & BMP: 07/09/16 04:00 07/09/16 06:50 Lab Results: I have reviewed the past 24 hour labs Quality Measures - VTE Deep Vein Thrombosis/Pulmonary Embolism Present on Admission: No
[2016-07-19] MEDS: LORazepam 1 MG TABLET PO SCH ×3 (08:54→20:29)
[2016-07-20] MEDS: LORazepam 1 MG TABLET PO SCH ×3 (09:54→22:33)
[2016-07-20] MEDS ORDERED: fentaNYL 25 MCG/HR PATCH TRANSDERM SCH (15:30)
--- NOTE | 2016-07-20 15:33 | Hospitalist Progress Note ---
Assessment and Plan (1) Hospice care Status: Chronic Assessment and plan: restart fentanyl 25 mcg patch, cont ativan 2 mg po tid to prevent seizures. Current Visit: Yes (2) Acute respiratory failure Status: Acute Assessment and plan: patient is now hospice end of life care. All decisions to be made by patients rian guzman [phone]. 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 Will start fentanyl patch Exam - Constitutional Vitals: Period Temp Pulse Resp BP Sys/Stahl Pulse Ox Last 24 Hr 97.2 F-98.6 F 105-118 16-20 146-170/70-90 100-100 Exam: Heart Rate-[tachy] Lungs-bilateral rhonchi GI-[+bs soft, NT] Ext-[some anasarca] Neuro unresponsive to pain psych unable to assess General no acute respiratory distress] Results - Labs CBC & BMP: 07/09/16 04:00 07/09/16 06:50 Lab Results: I have reviewed the past 24 hour labs Quality Measures - VTE Deep Vein Thrombosis/Pulmonary Embolism Present on Admission: No
[2016-07-21] MEDS: LORazepam 1 MG TABLET PO SCH ×3 (09:24→20:08)
--- NOTE | 2016-07-21 12:30 | Case Mgmt Physician Query Form ---
LONG STAY PHYSICIAN RECERTIFICATION *This form is to be completed for all Medicare patients before they reach day 20 of their hospitalization. Please complete each section as appropriate.* I certify that hospitalization, and continued hospitalization, for this patient is medically necessary as follows: 1) Reasons of either continued hospitalization of the patient for medical treatment or medically required diagnostic study or special or unusual services for cost outlier cases are as follows: 2) Estimated time patient will need to remain in hospital: 3) Plan for Post Hospital Care: ( ) Home with Primary Care Follow up ( ) Home with Home Health Follow up (x ) LTACH/ Acute Care Rehab/ SNF/Senior Living ( ) Other: If you have any questions, please contact me. Thank you, Екатерина Clemens RN Case Management W [phone] F [phone] C [phone] Starla [email or web address] If you have any questions, please contact me . Thank you, Bonita SEALS Email: [email or web address]
--- NOTE | 2016-07-21 12:58 | Hospitalist Progress Note ---
Assessment and Plan (1) Hospice care Status: Chronic Assessment and plan: Continue fentanyl 25 mcg patch, cont ativan 2 mg po tid to prevent seizures. 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 He can hear the secretions pooling in her throat. Exam - Constitutional Vitals: Period Temp Pulse Resp BP Sys/Stahl Pulse Ox Last 24 Hr 98.7 F-99.9 F 108-129 18-22 151-181/81-88 94-100 Exam: Heart Rate-[tachy] Lungs-bilateral rhonchi better today GI-[+bs soft, NT] Ext-[some anasarca] Neuro unresponsive to pain psych unable to assess General no acute respiratory distress] Results - Labs CBC & BMP: 07/09/16 04:00 07/09/16 06:50 Lab Results: I have reviewed the past 24 hour labs Quality Measures - VTE Deep Vein Thrombosis/Pulmonary Embolism Present on Admission: No
[2016-07-21] MEDS ORDERED: TUBERCULIN SKIN TEST 0.1 ML SYRINGE INTRADERM ONE (16:09)
--- NOTE | 2016-07-22 07:53 | Case Mgmt Physician Query Form ---
TB Signs and Symptoms Screening ([place]) INSTRUCTIONS: To be completed annually on residents/staff with a significant Tuberculin Skin Test (TST) upon admission/hire or a prior significant TST. To be completed on all staff at hire. Please respond to each listed symptom with an (X) in either the "YES" or "NO" box. Do you currently have any of the following symptoms: YES NO ( ) ( x) A cough If yes, is it: ( ) Productive ( ) Non- productive ( ) ( x) Hemoptysis (spitting up blood) ( ) (x ) Chest pains ( ) (x ) Weight Loss ( ) (x ) Fever ( ) (x ) Night Sweats ( x) ( ) Weakness ( ) (x ) Loss of Appetite ( ) ( x) Difficulty Breathing If you answered YES" to any of the above questions, how long have symptoms been present? Comments: If you have any questions, please contact me . Thank you, Bonita SEALS Email: [email or web address] [facility]
[2016-07-22] MEDS: LORazepam 1 MG TABLET PO SCH ×3 (10:16→21:40)
--- NOTE | 2016-07-22 10:28 | Discharge Summary ---
Hospital Course - Hospital Course Hospital Course: 71 year old female with a history of anoxic brain injury presented to the emergency room with respiratory failure with a white count on admission of 29.8 and lactic acid of 2.3. Patient was intubated and admitted to the ICU. Dr. Cartagena was consulted to manage the vent. Patient was treated with vancomycin and Rocephin for UTI. Blood cultures are negative no growth. Patient was minimally responsive to pain. She was treated for sepsis and seizures and extubated. Urine culture grew out Enterococcus faecalis. Patient unable to protect her airway off the vent. She was made a DNR by her brother. We learned from the brother's daughter her niece Kimmy at that he was ill and is currently on chemotherapy and is not capable of making decisions. We have deferred to Kimmy for all decisions regarding her care. With her anoxic brain injury she has no quality of life and said he would like to do comfort care with end-of-life care. I started a fentanyl patch and Ativan and she is resting comfortably and in no distress. Patient will be transferred to [facility] for hospice care today. - Time spent with patient Time with patient DS: Less than 30 minutes (25 min) Diagnosis - Discharge Diagnosis (1) Hospice care Status: Chronic (2) Seizure disorder Status: Acute (3) Encephalopathy Status: Acute (4) Anoxic brain injury Status: Chronic Discharge Plan - Discharge Data Disposition: Disch To Home/Self Care Condition at Discharge: Stable Discharge Diet: other (NPO) Activity: resume usual activities as tolerated Hygiene: no restrictions - Discharge Medications New LORazepam [Lorazepam Intensol] 2 mg PO TID #30 ml fentaNYL 25 MCG/HR PATCH [Duragesic 25 Patch] 1 patch TRANSDERM Q3DAY #5 patch Discontinued Allopurinol 100 mg PEG DAILY Glucagon 1 mg IM PRN PRN #0 vial PRN Reason: Hypoglycemia w/o IV access hydrALAZINE TAB [Apresoline Tab] 50 mg PEG TID Metoprolol Tartrate Tab [Lopressor Tab] 50 mg PEG BID Ranitidine Liquid [Zantac Syrup] 150 mg PEG BID Insulin Glargine [Lantus] 24 unit SUBCUT BEDTIME Acetaminophen Tab [Tylenol Tab] 650 mg PEG Q6H PRN MDD 3GM/24H PRN Reason: Fever, Headache, Mild Pain Ascorbic Acid Tab [Vitamin C Tab] 500 mg PEG DAILY levETIRAcetam LIQUID [Keppra Liquid] 500 mg PEG BID Menthol/Zinc Oxide Oint [Calmoseptine Oint] 1 applic TOP QID PRN PRN Reason: SACRAL AREA/SKIN BREAKDOWN Insulin Regular [HumuLIN R] See Protocol SUBCUT ACHS Multivitamin [Multivitamins] 1 each PEG DAILY - Follow Up or Referral - Forms/Instructions Exam - Constitutional Vitals: Period Temp Pulse Resp BP Sys/Stahl Pulse Ox Last 24 Hr 98.5 F-99.9 F 94-123 18-22 129-151/75-88 94-100 General appearance: normal weight, no acute distress - Respiratory Respiratory exam: Present: clear to auscultation bilaterally - Cardiovascular Cardiovascular exam: Present: regular rate and rhythm - Neurological Exam Neurological exam: Present: altered DS: Provider Date of admission: 07/03/16 15:14 Primary care physician: . No PCP Attending physician on admission: Viry Gibson MD Consults: 07/03/16 19:08 Consult to Pharmacy [CONS] Routine Reason for Pharmacy Consult: Dose/Manage Vancomycin Consult to Physician [CONS] Routine Comment: respiratory failure Consulting Provider: Aashish Cartagena 07/06/16 09:35 Consult to Physician [CONS] Routine Comment: Consulting Provider: Juvencio Cummings When should Consulting Provider be notified: Now Date Notified: 07/06/16 Time Notified: 10:10 Consult Notification Comment: left voice mail @ clinic 07/06/16 11:30 Consult to Dietitian [CONS] Routine Reason for Dietitian: TF-Initiate/Manage 07/14/16 08:50 Consult to Case Mgmt/Social Srvs [CONS] Routine Reason for Case Mgmt/Social Srvs: Other Consult Comment: NH with Hospice Discharging clinician: Ginny Corona MD
[2016-07-22 11:59] VITALS: BP 156/74
== END 2016-07-22 15:34 | DRG 870 ==
LOC: EDUNIT# → EDBD → N.ED 11:46 → MERGE 15:14 → SUATTDRO 15:14 → N.EDINP 15:14 → N.CC 17:53 → N.5E 07-10 16:15
PROVIDERS: ADMIT Internal Medicine; ATTEND Internal Medicine